=== PATIENT | male | born 1975 | race Caucasian/White ===

== ENCOUNTER 2016-08-10 11:12 | Outpatient (RCR) | payer SELFPAY | END 2016-09-05 | LOC: CR 11:12 | PROVIDERS: Family Provider Family Medicine; Referring Provider Internal Medicine Cardiovascular Disease; Visit Provider Family Medicine | DX: Z98.61 Coronary angioplasty status (principal) ==

== ENCOUNTER → 2019-07-08 00:01 | Outpatient (RCR) | payer MEDICARE, OTHER, SELFPAY | LOC: WOUND 09:39 | PROVIDERS: Family Provider Internal Medicine; Visit Provider Thoracic Surgery (Cardiothoracic Vascular Surgery) | DX: E11.621 Type 2 diabetes mellitus with foot ulcer (principal); L97.422 Non-pressure chronic ulcer of left heel and midfoot with fat layer exposed; I96 Gangrene, not elsewhere classified | CPT/HCPCS: 11042; G0463; 99202; 99212 ==

== ENCOUNTER 2019-08-05 09:00 | Outpatient (RCR) | payer MEDICARE, OTHER, SELFPAY | END 2019-08-08 23:59 | disposition home or self-care (01) | LOC: WOUND 09:00 | PROVIDERS: Family Provider Internal Medicine; PCP Internal Medicine; Visit Provider Thoracic Surgery (Cardiothoracic Vascular Surgery) | DX: E11.621 Type 2 diabetes mellitus with foot ulcer (principal); L97.422 Non-pressure chronic ulcer of left heel and midfoot with fat layer exposed; I96 Gangrene, not elsewhere classified | CPT/HCPCS: 11042; 15275; Q4196 ==

== ENCOUNTER 2019-08-12 10:00 | Outpatient (CLI) | payer MEDICARE, OTHER, SELFPAY ==
--- NOTE | 2019-08-12 10:15 | XR_ITS ---
WS: [id number] LEFT FOOT: 3 VIEW(S) TECHNIQUE: PA, oblique and lateral. HISTORY: PAIN, REDNESS, NONHEALING ULCER COMPARISON: 09/05/2010 Severe peripheral arterial calcifications and osteopenia. Chronic destruction and atrophy of the fift h toe. Ulcer was noted adjacent to the fifth toe on prior imaging studies. No current ulcer. No defin ite ulceration is noted over the calcaneus on today's study. No erosions or osteomyelitis. Normal tarsal/metatarsal alignment. XR/XR foot LT min 3V* 10106 IMPRESSION: 1. No ulceration or osteomyelitis noted involving the retrocalcaneal soft tiss ues or calcaneus. 2. Chronic deformity may be from prior osteomyelitis involving the fifth toe. 3. Severe peripheral arterial calcifications and osteopenia.
== END 2019-08-12 10:01 | disposition home or self-care (01) ==
LOC: RADWPI 10:08
PROVIDERS: Family Provider Internal Medicine; PCP Internal Medicine; Visit Provider Thoracic Surgery (Cardiothoracic Vascular Surgery)
DX: M85.872 Other specified disorders of bone density and structure, left ankle and foot (principal); L53.9 Erythematous condition, unspecified
CPT/HCPCS: 73630

== ENCOUNTER 2019-09-02 09:17 | Outpatient (RCR) | payer MEDICARE, OTHER, SELFPAY | END 2019-09-06 23:59 | disposition home or self-care (01) | LOC: WOUND 09:17 | PROVIDERS: Family Provider Internal Medicine; PCP Internal Medicine; Visit Provider Thoracic Surgery (Cardiothoracic Vascular Surgery) | DX: E11.621 Type 2 diabetes mellitus with foot ulcer (principal); L97.422 Non-pressure chronic ulcer of left heel and midfoot with fat layer exposed; M85.872 Other specified disorders of bone density and structure, left ankle and foot; L53.9 Erythematous condition, unspecified | CPT/HCPCS: 11042; 73630 ==

== ENCOUNTER 2019-10-07 10:30 | Outpatient (RCR) | payer MEDICARE, OTHER, SELFPAY | END 2019-10-07 23:59 | disposition home or self-care (01) | LOC: WOUND 10:30 | PROVIDERS: Family Provider Internal Medicine; PCP Internal Medicine; Visit Provider Thoracic Surgery (Cardiothoracic Vascular Surgery) | DX: E11.621 Type 2 diabetes mellitus with foot ulcer (principal); L97.422 Non-pressure chronic ulcer of left heel and midfoot with fat layer exposed | CPT/HCPCS: 11042; 15275; L4397; Q4110 ==

== ENCOUNTER 2019-11-04 09:35 | Outpatient (RCR) | payer MEDICARE, OTHER, SELFPAY | END 2019-11-06 23:59 | disposition home or self-care (01) | LOC: WOUND 09:35 | PROVIDERS: Family Provider Internal Medicine; PCP Internal Medicine; Visit Provider Thoracic Surgery (Cardiothoracic Vascular Surgery) | DX: E11.621 Type 2 diabetes mellitus with foot ulcer (principal); L97.422 Non-pressure chronic ulcer of left heel and midfoot with fat layer exposed | CPT/HCPCS: 11042 ==

== ENCOUNTER 2019-11-11 10:03 | Outpatient (CLI) | payer MEDICARE, OTHER, SELFPAY | END 2019-11-11 10:04 | disposition home or self-care (01) | LOC: WOUND 10:04 | PROVIDERS: Family Provider Internal Medicine; PCP Internal Medicine; Visit Provider Thoracic Surgery (Cardiothoracic Vascular Surgery) | DX: E11.621 Type 2 diabetes mellitus with foot ulcer (principal); L97.422 Non-pressure chronic ulcer of left heel and midfoot with fat layer exposed; L97.522 Non-pressure chronic ulcer of other part of left foot with fat layer exposed | CPT/HCPCS: 11042 ==

== ENCOUNTER 2019-11-18 08:55 | Outpatient (CLI) | payer MEDICARE, OTHER, SELFPAY | END 2019-11-18 08:56 | disposition home or self-care (01) | LOC: WOUND 08:56 | PROVIDERS: Family Provider Internal Medicine; PCP Internal Medicine; Visit Provider Thoracic Surgery (Cardiothoracic Vascular Surgery) | DX: E11.621 Type 2 diabetes mellitus with foot ulcer (principal); L97.422 Non-pressure chronic ulcer of left heel and midfoot with fat layer exposed | CPT/HCPCS: 11042 ==

== ENCOUNTER 2019-11-25 09:41 | Outpatient (CLI) | payer MEDICARE, OTHER, SELFPAY | END 2019-11-25 09:42 | disposition home or self-care (01) | LOC: WOUND 09:42 | PROVIDERS: Family Provider Internal Medicine; PCP Internal Medicine; Visit Provider Thoracic Surgery (Cardiothoracic Vascular Surgery) | DX: E11.621 Type 2 diabetes mellitus with foot ulcer (principal); L97.422 Non-pressure chronic ulcer of left heel and midfoot with fat layer exposed | CPT/HCPCS: 11042 ==

== ENCOUNTER 2019-12-02 09:19 | Outpatient (CLI) | payer MEDICARE, OTHER, SELFPAY | END 2019-12-02 09:20 | disposition home or self-care (01) | LOC: WOUND 09:21 | PROVIDERS: Family Provider Internal Medicine; PCP Internal Medicine; Visit Provider Thoracic Surgery (Cardiothoracic Vascular Surgery) | DX: E11.621 Type 2 diabetes mellitus with foot ulcer (principal); L97.422 Non-pressure chronic ulcer of left heel and midfoot with fat layer exposed | CPT/HCPCS: 11042 ==

== ENCOUNTER 2019-12-09 09:32 | Outpatient (CLI) | payer MEDICARE, OTHER, SELFPAY | END 2019-12-09 09:33 | disposition home or self-care (01) | LOC: WOUND 09:34 | PROVIDERS: Family Provider Internal Medicine; PCP Internal Medicine; Visit Provider Thoracic Surgery (Cardiothoracic Vascular Surgery) | DX: E11.621 Type 2 diabetes mellitus with foot ulcer (principal); L97.422 Non-pressure chronic ulcer of left heel and midfoot with fat layer exposed | CPT/HCPCS: 11042 ==

== ENCOUNTER 2019-12-16 09:52 | Outpatient (CLI) | payer MEDICARE, OTHER, SELFPAY | END 2019-12-16 09:53 | disposition home or self-care (01) | LOC: WOUND 09:56 | PROVIDERS: Family Provider Internal Medicine; PCP Internal Medicine; Visit Provider Thoracic Surgery (Cardiothoracic Vascular Surgery) | DX: E11.621 Type 2 diabetes mellitus with foot ulcer (principal); L97.422 Non-pressure chronic ulcer of left heel and midfoot with fat layer exposed | CPT/HCPCS: 11042 ==

== ENCOUNTER 2019-12-23 09:33 | Outpatient (CLI) | payer MEDICARE, OTHER, SELFPAY | END 2019-12-23 09:34 | disposition home or self-care (01) | LOC: WOUND 09:34 | PROVIDERS: Family Provider Internal Medicine; PCP Internal Medicine; Visit Provider Thoracic Surgery (Cardiothoracic Vascular Surgery) | DX: E11.621 Type 2 diabetes mellitus with foot ulcer (principal); L97.422 Non-pressure chronic ulcer of left heel and midfoot with fat layer exposed | CPT/HCPCS: G0463 ==

== ENCOUNTER 2020-01-06 09:27 | Outpatient (CLI) | payer MEDICARE, OTHER, SELFPAY | END 2020-01-06 09:28 | disposition home or self-care (01) | LOC: WOUND 09:28 | PROVIDERS: Family Provider Internal Medicine; PCP Internal Medicine; Visit Provider Thoracic Surgery (Cardiothoracic Vascular Surgery) | DX: Z09 Encounter for follow-up examination after completed treatment for conditions other than malignant neoplasm (principal) | CPT/HCPCS: 99211; 99212 ==

== ENCOUNTER → 2022-01-25 14:26 | Outpatient (BNVA) | payer MEDICARE, OTHER, SELFPAY | PROVIDERS: Family Provider Internal Medicine; PCP Internal Medicine; Visit Provider Thoracic Surgery (Cardiothoracic Vascular Surgery) | DX: I96 Gangrene, not elsewhere classified (principal); E11.621 Type 2 diabetes mellitus with foot ulcer; L97.422 Non-pressure chronic ulcer of left heel and midfoot with fat layer exposed | CPT/HCPCS: 11042; 99213 ==

== ENCOUNTER → 2022-01-30 09:45 | Outpatient (BNVA) | payer MEDICARE, OTHER, SELFPAY | PROVIDERS: Family Provider Internal Medicine; PCP Internal Medicine; Visit Provider Thoracic Surgery (Cardiothoracic Vascular Surgery) | DX: E11.621 Type 2 diabetes mellitus with foot ulcer (principal); L89.622 Pressure ulcer of left heel, stage 2; I96 Gangrene, not elsewhere classified | CPT/HCPCS: 11042 ==

== ENCOUNTER → 2022-02-06 09:47 | Outpatient (BNVA) | payer MEDICARE, OTHER, SELFPAY | PROVIDERS: Family Provider Internal Medicine; PCP Internal Medicine; Visit Provider Nurse Practitioner Family | DX: E11.621 Type 2 diabetes mellitus with foot ulcer (principal); L97.422 Non-pressure chronic ulcer of left heel and midfoot with fat layer exposed; I96 Gangrene, not elsewhere classified | CPT/HCPCS: 11042 ==

== ENCOUNTER → 2022-02-13 09:05 | Outpatient (BNVA) | payer MEDICARE, OTHER, SELFPAY | PROVIDERS: Family Provider Internal Medicine; PCP Internal Medicine; Visit Provider Thoracic Surgery (Cardiothoracic Vascular Surgery) | DX: E11.621 Type 2 diabetes mellitus with foot ulcer (principal); L97.422 Non-pressure chronic ulcer of left heel and midfoot with fat layer exposed; I96 Gangrene, not elsewhere classified | CPT/HCPCS: 11042 ==

== ENCOUNTER → 2022-02-14 13:00 | Outpatient (BNVA) | payer MEDICARE, OTHER, SELFPAY | PROVIDERS: Family Provider Internal Medicine; PCP Internal Medicine; Visit Provider Internal Medicine | DX: R07.9 Chest pain, unspecified (principal); I73.9 Peripheral vascular disease, unspecified; I25.2 Old myocardial infarction; I95.0 Idiopathic hypotension; F17.210 Nicotine dependence, cigarettes, uncomplicated | CPT/HCPCS: 99214 ==

== ENCOUNTER → 2022-02-20 09:04 | Outpatient (BNVA) | payer MEDICARE, OTHER, SELFPAY | PROVIDERS: Family Provider Internal Medicine; PCP Internal Medicine; Visit Provider Thoracic Surgery (Cardiothoracic Vascular Surgery) | DX: E11.621 Type 2 diabetes mellitus with foot ulcer (principal); L97.522 Non-pressure chronic ulcer of other part of left foot with fat layer exposed; I96 Gangrene, not elsewhere classified; L97.422 Non-pressure chronic ulcer of left heel and midfoot with fat layer exposed | CPT/HCPCS: 11042 ==

== ENCOUNTER → 2022-02-27 08:44 | Outpatient (BNVA) | payer MEDICARE, OTHER, SELFPAY | PROVIDERS: Family Provider Internal Medicine; PCP Internal Medicine; Visit Provider Thoracic Surgery (Cardiothoracic Vascular Surgery) | DX: E11.621 Type 2 diabetes mellitus with foot ulcer (principal); L97.422 Non-pressure chronic ulcer of left heel and midfoot with fat layer exposed; L97.421 Non-pressure chronic ulcer of left heel and midfoot limited to breakdown of skin | CPT/HCPCS: 11042 ==

== ENCOUNTER 2022-03-03 13:57 | Emergency (ER) | payer MEDICARE, OTHER, SELFPAY ==
[2022-03-03 14:50] VITALS: BP 104/68; PULSE 81; RESP 16; TEMP 36.8; O2SAT 94; BMI 27.0
[2022-03-03 15:58] LABS: Basophils # 0.1 10^3/uL (0.0-0.1); Basophils % 1.3 %; Eosinophils # 0.4 10^3/uL (0.0-0.8); Hematocrit 45.6 % (42.0-52.0); Hemoglobin 14.7 g/dL (11.7-16.6); Lymphocytes # 1.2 10^3/uL (0.8-4.8); Lymphocytes % 17.6 %; Mean Corpuscular HGB Conc 32.2 g/dL (30.0-36.0); Mean Corpuscular Hemoglobin 34.8 pg (28.0-34.0); Mean Corpuscular Volume 108.1 fl (80-94); Mean Platelet Volume 8.9 fL (7.4-10.4); Monocytes # 0.5 10^3/uL (0.2-0.9); Monocytes % 6.9 %; Neutrophils % 67.8 %; Nucleated Red Blood Cells % 0 %; Platelet Count 160 10^3/cmm (130-400); Red Blood Count 4.22 10^6/uL (4.1-5.3); Red Cell Distribution Width 14.7 % (12.1-15.1); White Blood Count 6.8 10^3/uL (4.0-10.0)
--- NOTE | 2022-03-03 16:11 | ED_ITS ---
HPI - Extremity Problem General: Chief complaint: Extremity Injury, Lower Stated complaint: Left lower leg pain, possible clot Time Seen by Provider: 03/03/22 16:09 [facility] PFSH: Medical History History of non-ST elevation myocardial infarction (NSTEMI) Hypotension Peripheral Vascular Disease Family History Other Cancer Diabetes Heart disease Hypertension Stroke Social History Smoking and tobacco status: current every day smoker cigarettes Packs smoked per day: 0.5 Course Vital Signs: Vital signs: Vital Signs Temperature 98.2 F 03/03/22 14:50 Pulse Rate 81 03/03/22 14:50 Respiratory Rate 16 03/03/22 14:50 Blood Pressure 104/68 03/03/22 14:50 Pulse Oximetry 94 03/03/22 14:50 Oxygen Delivery Me thod 03/03/22 14:50 MDM - Extremity (Nontraumatic) Lab Data : 03/03/22 15:50 03/03/22 15:50 Laboratory Results WBC 6.8 10^3/uL (4.0-10.0) 03/03/22 15:50 RBC 4.22 10^6/uL (4.1-5.3) 03/03/22 15:50 Hgb 14.7 g/dL (11.7-16.6) 03/03/22 15:50 Hct 45.6 % (42.0-52.0) 03/03/22 15:50 MCV 108.1 fl (80-94) H 03/03/22 15:50 MCH 34.8 pg (28.0-34.0) H 03/03/22 15:50 MCHC 32.2 g/dL (30.0-36.0) 03/03/22 15:50 RDW 14.7 % (12.1-15.1) 03/03/22 15:50 Plt Count 160 10^3/cmm (130-400) 03/03/22 15:50 MPV 8.9 fL (7.4-10.4) 03/03/22 15:50 Neut % (Auto) 67.8 % 03/03/22 15:50 Lymph % (Auto) 17.6 % 03/03/22 15:50 [place] % (Auto) 6.9 % 03/03/22 15:50 Eos % (Auto) 6.0 % 03/03/22 15:50 Baso % (Auto) 1.3 % 03/03/22 15:50 Neut # (Auto) 4.60 10^3/uL (1.8-7.7) 03/03/22 15:50 Lymph # (Auto) 1.2 10^3/uL (0.8-4.8) 03/03/22 15:50 [place] # (Auto) 0.5 10^3/uL (0.2-0.9) 03/03/22 15:50 Eos # (Auto) 0.4 10^3/uL (0.0-0.8) 03/03/22 15:50 Baso # (Auto) 0.1 10^3/uL (0.0-0.1) 03/03/22 15:50 Nucleated RBC % (auto) 0 % 03/03/22 15:50 Nucleated RBCs # 0.0 /100WBC 03/03/22 15:50 Discharge Plan Discharge Condition: Stable Prescriptions: No Action doxercalciferol 2 mcg/mL solution IV nitroglycerin [Nitrostat] 0.4 mg tablet, sublingual 0.4 mg SUBLINGUAL Q5M PRN (Reason: chest pain) Qty: 25 1RF Rx Instructions: do not exceed 3 doses per episode aspirin [Adult Low Dose Aspirin] 81 mg tablet,delayed release (DR/EC) 81 mg PO DAILY vitamin E (dl, acetate) 400 unit capsule 400 unit PO DAILY midodrine 10 mg tablet 10 mg PO TID Qty: 270 3RF Rx Instructions: do not give last dose of day after 6PM or within 4 hrs of bedtime Velphoro 500 mg tablet,chewable 1,000 mg PO TID clopidogrel 75 mg tablet 75 mg PO DAILY Qty: 90 3RF sodium chloride 0.9 % solution 1 irrig irrigation DAILY MDD once daily Qty: 500 3RF Referrals: Julius Aguila DO [Primary Care Provider] - Coding Level of Care Code ED Kiln Door Repairer for Chg Fwdeyvi
[2022-03-03 16:47] LABS: Anion Gap 17.3 (5-19); Blood Urea Nitrogen 13 mg/dL (6-20); Calcium 10.1 mg/dL (8.5-10.5); Carbon Dioxide 28 mmol/L (22-29); Chloride 95 mmol/L (98-107); Glomerular Filtration Rate 21.1 mL/min (90-130); Glucose 101 mg/dL (65-115); Osmolality Calculated 282 mOsm/kg (285-295); Potassium 4.3 mmol/L (3.5-5.1); Sodium 136 mmol/L (136-145)
[2022-03-03 16:50] LABS: Creatinine Clr Calc Pharmacy 30.2382
--- NOTE | 2022-03-03 16:51 | W.ED.EXTPRO ---
HPI - Extremity Problem General: Chief complaint: Extremity Injury, Lower Stated complaint: Left lower leg pain, possible clot Time Seen by Provider: 03/03/22 16:09 Source: patient and family Mode of arrival: ambulatory History of Present Illness: Amy patient is here because of concerns about discoloration and necrosis of the left foot particularly the base of the toe and heel. The patient has a history of peripheral vascular disease and is had a right leg amputation for the same condition. He is still using tobacco. He sees Dr. Hernández at the wound care clinic who has been treating him on a regular basis. Patient also has chronic kidney disease and gets 3 times a week hemodialysis. Family has brought him here today to the emergency department because she thinks there is some increase progression of duskiness to the areas. He has had no fever, drainage etc. PFS ED PFSH: Medical History History of non-ST elevation myocardial infarction (NSTEMI) Hypotension Peripheral Vascular Disease Family History Other Cancer Diabetes Heart disease Hypertension Stroke Social History Smoking and tobacco status: current every day smoker cigarettes Packs smoked per day: 0.5 Physical Exam Narrative: EXAM NARRATIVE: The patient is alert makes good eye contact speech is goal-directed. Const: COMMON NORMALS: no acute distress and patient oriented x3 GENERAL APPEARANCE: cooperative and comfortable HENMT: COMMON NORMALS: normocephalic and moist oral mucous membranes HEAD & SCALP: normocephalic FACE & SINUS: normal facial exam Eye: COMMON NORMALS: Equal, round and reactive pupils present, EOMs intact bilaterally and conjunctivae normal CONJUNCTIVA: Yes conjunctivae normal PUPIL: Yes Equal, round and reactive pupils present Neck/C-Spine: COMMON NORMALS: full ROM Chest: COMMONS NORMALS: normal inspection of the chest Resp: COMMON NORMALS: normal respiratory effort, No retractions and No use of accessory muscles Cardio: COMMON NORMALS: regular rate, regular rhythm and No murmurs present (Cardio) RATE: regular rate RHYTHM: regular rhythm GI: COMMON NORMALS: Normal to inspection, nondistended, normoactive bowel sounds present and Soft to palpation PALPATION: Yes Soft to palpation Extremity: NARRATIVE EXTREMITY EXAM: He has BKA on the right with prosthesis. His left lower extremity is remarkable for duskiness and discoloration to the extremity from the proximal one third of the lower leg distal. He has smooth hairless skin of the lower extremity as well. There is evidence of dry flaky dermis as well. The examination of the foot reveals an area on ulcer on his heel of the left foot measuring approximately 3-1/2 to 4 cm. There is no drainage or erythema. There is also a dark ulcerated area to the base of the fourth toe. There is no drainage or erythema. Neuro: COMMON NORMALS: patient oriented x3, moves all extremities, no focal motor deficits and no sensory deficits noted Course Consultations: Consultation #1: I discussed case with Dr. Hernández who is the wound care physician. Has made arrangements for this patient to see Dr. Leal for angiography and possible peripheral vascular disease treatment. This was at the request of the mother over him going back to [place] and seeing his previous vascular surgeons at [facility]. Time: 17:43 Vital Signs: Vital signs: Vital Signs Temperature 98.2 F 03/03/22 14:50 Pulse Rate 81 03/03/22 14:50 Respiratory Rate 18 03/03/22 18:01 Blood Pressure 113/75 03/03/22 18:01 Pulse Oximetry 94 03/03/22 14:50 Oxygen Delivery Me thod 03/03/22 14:50 MDM - Extremity (Nontraumatic) Medical Decision Making This patient with a history of severe peripheral vascular disease as well as chronic kidney disease who continues to use tobacco came to the emergency department with his mother because she was concerned about possible need for intervention of his left leg and foot. She thinks there is some small areas that looked a little more purplish or darker than usual. His care is usually provided by the wound care clinic as well as nephrology for 3 times a week hemodialysis. There is also been prior arrangements made for peripheral angiography and potential stenting as indicated coming up in the next few weeks. His evaluation today revealed an KIRA that was not indicative of severe ischemia at this time. It was 0.8. This combined with the improved appearance of his leg when it was not dependent as well as additional discussion with the patient and his mother and in consort with the wound care physician resulted in a plan to continue the previously outlined plan. He has no signs of cellulitis, wet gangrene etc. at this time. We further admonished the patient not to use tobacco and also to not keep his leg dependent but keep it elevated to help reduce his symptoms. They voiced understanding of the discussion. He is stable at this time to be discharged with follow-up as previously planned. Medical Records I reviewed the patient's medical records. Lab Data I reviewed the patient's lab results. : 03/03/22 15:50 03/03/22 15:50 Laboratory Results WBC 6.8 10^3/uL (4.0-10.0) 03/03/22 15:50 RBC 4.22 10^6/uL (4.1-5.3) 03/03/22 15:50 Hgb 14.7 g/dL (11.7-16.6) 03/03/22 15:50 Hct 45.6 % (42.0-52.0) 03/03/22 15:50 MCV 108.1 fl (80-94) H 03/03/22 15:50 MCH 34.8 pg (28.0-34.0) H 03/03/22 15:50 MCHC 32.2 g/dL (30.0-36.0) 03/03/22 15:50 RDW 14.7 % (12.1-15.1) 03/03/22 15:50 Plt Count 160 10^3/cmm (130-400) 03/03/22 15:50 MPV 8.9 fL (7.4-10.4) 03/03/22 15:50 Neut % (Auto) 67.8 % 03/03/22 15:50 Lymph % (Auto) 17.6 % 03/03/22 15:50 [place] % (Auto) 6.9 % 03/03/22 15:50 Eos % (Auto) 6.0 % 03/03/22 15:50 Baso % (Auto) 1.3 % 03/03/22 15:50 Neut # (Auto) 4.60 10^3/uL (1.8-7.7) 03/03/22 15:50 Lymph # (Auto) 1.2 10^3/uL (0.8-4.8) 03/03/22 15:50 [place] # (Auto) 0.5 10^3/uL (0.2-0.9) 03/03/22 15:50 Eos # (Auto) 0.4 10^3/uL (0.0-0.8) 03/03/22 15:50 Baso # (Auto) 0.1 10^3/uL (0.0-0.1) 03/03/22 15:50 Nucleated RBC % (auto) 0 % 03/03/22 15:50 Nucleated RBCs # 0.0 /100WBC 03/03/22 15:50 Sodium 136 mmol/L (136-145) 03/03/22 15:50 Potassium 4.3 mmol/L (3.5-5.1) 03/03/22 15:50 Chloride 95 mmol/L (98-107) L 03/03/22 15:50 Carbon Dioxide 28 mmol/L (22-29) 03/03/22 15:50 Anion Gap 17.3 (5-19) 03/03/22 15:50 BUN 13 mg/dL (6-20) 03/03/22 15:50 Creatinine 3.2 mg/dL (0.7-1.2) H 03/03/22 15:50 GFR Calculation 21.1 mL/min (90-130) L 03/03/22 15:50 Glucose 101 mg/dL (65-115) 03/03/22 15:50 Calculated Osmolality 282 mOsm/kg (285-295) L 03/03/22 15:50 Calcium 10.1 mg/dL (8.5-10.5) 03/03/22 15:50 Discharge Plan Discharge Patient Disposition: Home Clinical Impression: Peripheral Vascular Disease Condition: Stable Prescriptions: No Action doxercalciferol 2 mcg/mL solution IV nitroglycerin [Nitrostat] 0.4 mg tablet, sublingual 0.4 mg SUBLINGUAL Q5M PRN (Reason: chest pain) Qty: 25 1RF Rx Instructions: do not exceed 3 doses per episode aspirin [Adult Low Dose Aspirin] 81 mg tablet,delayed release (DR/EC) 81 mg PO DAILY vitamin E (dl, acetate) 400 unit capsule 400 unit PO DAILY midodrine 10 mg tablet 10 mg PO TID Qty: 270 3RF Rx Instructions: do not give last dose of day after 6PM or within 4 hrs of bedtime Velphoro 500 mg tablet,chewable 1,000 mg PO TID clopidogrel 75 mg tablet 75 mg PO DAILY Qty: 90 3RF sodium chloride 0.9 % solution 1 irrig irrigation DAILY MDD once daily Qty: 500 3RF Discharge Orders: Discharge ED (Routine); Ordered 03/03/22 Ordered By: Andrey Oconnell Referrals: Julius Aguila DO [Primary Care Provider] - Discharge Diet: Usual diet Discharge Activity: Increase activity as tolerated Patient Instructions: Opioid Safety Activity Restrictions/Additional Instructions: Do not smoke cigarettes-none. Continue all your usual medications and home wound care. Follow-up in wound care clinic on Sunday as scheduled. If you develop fever, increasing pain, increasing redness or any concerns return to this or the nearest emergency department. Coding Level of Care Code ED Scalemaker for Meka Fischer Exam Comprehensive
[2022-03-03 18:01] VITALS: BP 113/75; RESP 18
--- NOTE | 2022-03-03 18:01 | PC.NURSE ---
KIRA of 0.[address] Oconnell, explained to patient by this RN.
== END 2022-03-03 19:02 | disposition home or self-care (01) ==
PROVIDERS: Physician Assistant; Emergency Provider Emergency Medicine; PCP Internal Medicine
DX: I73.9 Peripheral vascular disease, unspecified (principal); Z79.82 Long term (current) use of aspirin; Z79.02 Long term (current) use of antithrombotics/antiplatelets; I25.2 Old myocardial infarction; F17.210 Nicotine dependence, cigarettes, uncomplicated
CPT/HCPCS: 36415; 80048; 85025; 99283

== ENCOUNTER → 2022-03-06 08:56 | Outpatient (BNVA) | payer MEDICARE, OTHER, SELFPAY | PROVIDERS: PCP Internal Medicine; Visit Provider Thoracic Surgery (Cardiothoracic Vascular Surgery) | DX: E11.621 Type 2 diabetes mellitus with foot ulcer (principal); L97.422 Non-pressure chronic ulcer of left heel and midfoot with fat layer exposed; I96 Gangrene, not elsewhere classified; L97.521 Non-pressure chronic ulcer of other part of left foot limited to breakdown of skin | CPT/HCPCS: 11042; 97597; A6197 ==

== ENCOUNTER → 2022-03-20 09:34 | Outpatient (BNVA) | payer MEDICARE, OTHER, SELFPAY | PROVIDERS: PCP Internal Medicine; Visit Provider Nurse Practitioner Family | DX: I96 Gangrene, not elsewhere classified (principal); E11.621 Type 2 diabetes mellitus with foot ulcer; L97.422 Non-pressure chronic ulcer of left heel and midfoot with fat layer exposed; L97.521 Non-pressure chronic ulcer of other part of left foot limited to breakdown of skin | CPT/HCPCS: 87070; 87077; 87186; 99213 ==

== ENCOUNTER → 2022-03-24 09:35 | Outpatient (BNVA) | payer MEDICARE, OTHER, SELFPAY | PROVIDERS: Family Provider Internal Medicine; PCP Internal Medicine; Visit Provider Internal Medicine | DX: R07.9 Chest pain, unspecified (principal); I73.9 Peripheral vascular disease, unspecified; I25.2 Old myocardial infarction; I95.0 Idiopathic hypotension; R58 Hemorrhage, not elsewhere classified | CPT/HCPCS: 36415; 80048; 85025; 85610 ==

== ENCOUNTER → 2022-03-27 09:02 | Outpatient (BNVA) | payer MEDICARE, OTHER, SELFPAY | PROVIDERS: Family Provider Internal Medicine; PCP Internal Medicine; Visit Provider Thoracic Surgery (Cardiothoracic Vascular Surgery) | DX: I96 Gangrene, not elsewhere classified (principal); E11.621 Type 2 diabetes mellitus with foot ulcer; L97.422 Non-pressure chronic ulcer of left heel and midfoot with fat layer exposed; L97.421 Non-pressure chronic ulcer of left heel and midfoot limited to breakdown of skin | CPT/HCPCS: 11042 ==

== ENCOUNTER 2022-03-28 05:50 | Outpatient (CLI) | payer MEDICARE, OTHER, SELFPAY ==
[2022-03-28] VITALS (17 sets, daily range): BP systolic 101–115; BP diastolic 62–79; PULSE 68–79; RESP 16–33; TEMP 36.7–37.1; O2SAT 98–100; BMI 30.3
--- NOTE | 2022-03-28 06:02 | XACV_ITS ---
Ht: 168 cm Wt: 85 kg BSA: 2.02 m2 Any Known Allergies: Other Gender: Male : 1975 Exam Type: Invasive Peripheral Vascular Procedure(s): Procedure Description: Peripheral Cath Diagnostic Procedure Procedure Description: Abdominal aortic angiography Procedure Description: Lower Extremity Graft Angiography Exam Priority: Routine Abdominal Diagnostic Findings Distal aorta: Patent. Lower Extremity Diagnostic Findings INDICATION: 46-year-old man with past medical history of CAD, PAD has been referred from wound clinic given nonhealing wound on the left calcaneus and progressive necrotic changes on left fourth toe. He has a BKA on the right lower extremity. Pulses are not palpable. Left common iliac artery: Patent Left external iliac artery: Patent Left internal iliac artery: Patent Left common femoral artery: Patent Left profunda artery: Patent Left SFA: Has diffuse moderate disease. Left popliteal artery: Heavily calcified, totally occluded proximal popliteal artery. Anterior tibial artery: Patent TP segment: Patent Peroneal artery: has significant proximal stenosis. Posterior tibial artery: Occluded . Lower Extremity Interventional Findings Procedure detail: Access was obtained in right common femoral artery. Using UF catheter every obtained abdominal angiogram. This was followed by placement of a long sheath into left external iliac artery. Runoff of left lower extremity showed totally occluded, heavily calcified popliteal artery. We attempted to cross the stenosis briefly with a Glidewire with seeker support catheter. This was followed by attempting with run-through wire. This was followed with attempting to cross with Fielder XT. However none of the wires were able to cross. At this stage we decided to stop and get vascular surgery opinion.. Conclusions Totally occluded, heavily calcified left popliteal artery. Status post unsuccessful revascularization attempt. Recommendations We will obtain opinion from Dr. Hernández regarding possible bypass surgery. Access Site Site: Right Femoral artery Sheath Size: 6 Fr Hemost... Method: Suture Hemost... Success: Successful Procedure Details Findings Procedure Consent Obtained. Admit Source: Out Patient. Pre-Procedure Time Out. Identified patient by full name and date of as verbalized by the patient/guarantor. Does the consent match the physician's order: Yes. Accurate & Complete Informed Consent: Yes. Inpatient/Outpatient History & Physical on Chart: Yes. If H&P is completed, is and addenduem needed: No; If yes, is the addendum complete: N/A. Visualize and Verify Site with Patient/Guarantor: N/A. Relevant Radiology Images available: N/A. The risks, benefits, and alternatives of sedation and/or procedure were discussed by physician. The patient agrees to continue. Procedure started. Correct patient, site and procedure confirmed by cath team. Current diagnosis: Critical Limb Ischemia. PERRLA. Strong, equal hand ophthalmologist retina specialist bilaterally. Lungs clear x 5 lobes. IV Site on Arrival: 18 gauge in the right anticubital. IV Fluids: 0.9% NaCl at KVO. 0 mL infused prior to manufacturing laborer. Patient has a Right below the Knee amputation. Left DP and PT pulses not acessible d/t lower extremity dressings. Oxygen started at 3liters/min via nasal canula. bilateral groins was prepped with chloroprep then draped in the usual sterile fashion. Physician notified. Baseline sample Acquired. HR: 74 BPM. Family updated prior to the start of the procedure. Equipment: 5F - Femoral. Equipment: Peripheral. Equipment: 6F - Femoral. Physician arrived. Physician scrubbed in. Heparinized Saline (2 units/mL), 1000 mL bag. Kit, Micropuncture. Cardiac Cath Pack. ACIST Manifold Kit Model BT 2000. Immediate Pre-Procedure Time Out. Correct Patient: Yes; Correct Procedure: Yes; Correct Site: Yes; Correct Patient Position: Yes; Correct Supplies: Yes; Dried Flammable Prep: Yes; Blood Products Available: N/A;. Lidocaine 1% infiltrated to the right groin. Arterial access obtained with micropuncture set. A 5FrFr UF catheter in over wire. Abdominal aortogram performed in AP @ 10 mL/sec for a total of 30 mL. Glidewire inserted and advanced down the left SFA. Sheath upsized to a 6 Fr. Glidewire removed. Left common femoral selected and arteriogram with runoff performed @ 10 mL/sec for a total of 30 mL. Seeker inserted and advanced to the left SFA. Seeker catheter inserted over the wire. Glidewire removed. Hand injection of the left Popliteal performed using digital subtraction. Hand injection of the left Trifuctation vessels performed using digital subtraction. [place] to KVO. 300 cm Runthrough inserted and advanced to the left Tibial peroneal trunk. Unable to cross lesion in the popliteal. Runthrough wire out. 190 cm Fielder XT wire inserted through the seeker. Unable to cross lesion in the popliteal. Fielder wire removed. 300 cm Runthrough inserted and advanced to the left Tibial peroneal trunk. Family updated by [facility] staff. Unable to cross lesion in the popliteal. Runthrough wire removed. Hand injection of the left Popliteal performed using digital subtraction. Physician review of films. Hand injection of the left pedal performed using digital subtraction. Seeker and glidewire removed. Physician review of films. Glidewire inserted. Sheath upsized to a 6 Fr. A Suture was successful obtaining hemostatsis at the Right Femoral artery insertion site. Sheath(s) sutured into position with 2-0 silk and sterile 4x4's and Op-site applied over the site. No oozing or signs and symptoms of hematoma noted. Arterial sheath flushed and connected to tranducer and pressure bag with heparinized saline. Post Procedure: Pulses reassessed and unchanged. PERRLA. Strong, equal hand ophthalmologist retina specialist bilaterally. No VTE prophylaxis required. Medication waste Heparin 4000 units Versed 1 mg Fentanyl 50 mcg. Total IV fluids: 90 mL. Fluoro: 14:00. Contrast type used: Visipaque 320 mgI/mL, 100 mL bottle. [id number]. Post-op diagnosis: Critical limb ischemia of the left lower extremity. Complications: None. Estimated blood loss: 5mL-10mL. Responsiveness - Normal response to verbal stimuli; alert and oriented, PERRLA. Airway - Unaffected, no intervention required; spontaneous ventilation. Circulation: W/N/L, pulses unchanged. Nausea/Vomiting: No. Procedure completed. Patient transferred by bed to [facility]. Vital chart was stopped. Procedure Medications Start: 7:42 AM Stop: 7:42 AM Medication: Versed 1 mg and Fentanyl 25 mcg Amount: 1 Route: I.V. Start: 7:43 AM Stop: 7:43 AM Medication: Fentanyl Amount: 25 mcg Route: I.V. Start: 7:48 AM Stop: 7:48 AM Medication: Versed Amount: 1 mg Route: I.V. Start: 7:53 AM Stop: 7:53 AM Medication: Versed Amount: 1 mg Route: I.V. I, the attending physician, have reviewed and verified all procedure medications. Yes, all medications given per verbal order History/Risk Factors Hypertension: No Dyslipidemia: No Peripheral Arterial Disease (PAD): No Myocardial Infarction (AK): Yes Obesity: No Renal Disease: Yes Tobacco Use: Current/Recent(w/in 1 year) Dialysis: Current Prior Interventions PCI: Yes CABG: No Valve Surgery: No Date of PCI: 03/28/2018 Report Signatures Finalized by Dex Johnson MD on 04/02/2022 09:03 PM
[2022-03-28] MEDS: diphenhydrAMINE 50 mg Capsule PO (06:48)
--- NOTE | 2022-03-28 07:04 | SUR.PREOP ---
PATIENT HAS A RIGHT BKA WITH PROSTHESIS IN PLACE WELL A LEFT BELOW THE KNEE SUPPORTIVE BRACE FROM THE WOUND CLINIC.
--- NOTE | 2022-03-28 07:32 | W.PM.OPSFHP ---
Same Day Surgery H&P Indication for Procedure/HPI DATE OF PROCEDURE: March 28, 2022 CHIEF COMPLAINT/INDICATIONFOR SURGICAL PROCEDURE: Critical limb ischemia/ gangrene of 4th toe/ non healing wound on left foot PREOP DIAGNOSIS: Critical limb ischemia/ gangrene of 4th toe/ non healing wound on left foot PLANNED PROCEDURE: Operation Date: 03/28/22 07:00 Proposed Procedures p Peripheral Diagnostic Angiogram 54812,I73.9(Not Applicable) - Dex Johnson M.D Possible percutaneous intervention 46-year-old man with past medical history of CAD, PAD has been referred from wound clinic given nonhealing wound on the left calcaneus and progressive necrotic changes on left fourth toe. He has a BKA on the right lower extremity. Pulses are not palpable. Medications/Allergies* Home Medications Medication Instructions Recorded Confirmed Type aspirin 81 mg tablet,delayed 81 mg PO DAILY 12/03/19 03/27/22 History release (Adult Low Dose Aspirin) vitamin E (dl, acetate) 180 mg 400 unit PO DAILY 12/03/19 02/14/22 History (400 unit) capsule doxercalciferol 2 mcg/mL mcg IV 02/15/21 02/14/22 History intravenous solution sucroferric oxyhydroxide 500 mg 1,000 mg PO TID 02/14/22 03/27/22 History chewable tablet (Velphoro) Allergies/Adverse Reactions Allergy/AdvReac Type Severity Reaction Status Date / Time azithromycin [From Zithromax] Allergy Unknown Unknown Verified 02/14/22 13:29 ceftriaxone Allergy Unknown Unknown Verified 02/14/22 13:29 codeine Allergy Unknown Unknown Verified 02/14/22 13:29 hydrocodone Allergy Unknown Unknown Verified 02/14/22 13:29 Penicillins Allergy Unknown Unknown Verified 02/14/22 13:29 Current Medications: Generic Name Dose Route Start Last Admin Trade Name Freq PRN Reason Stop Dose Admin Sodium Chloride 1,000 mls @ 50 mls/hr 03/28/22 06:00 03/28/22 06:47 Sodium Chloride 0.9% IV 03/29/22 01:59 Not Given .Q20H ONE Pertinent History/Comorbid Conditions* Medical History (Updated 03/03/22 @ 18:46 by Andrey Oconnell DO) History of non-ST elevation myocardial infarction (NSTEMI) Hypotension Peripheral Vascular Disease Family History (Updated 12/03/19 @ 13:01 by Divya Flores, CHARLA) Diabetes Heart disease Cancer Hypertension Stroke Social History Smoking and tobacco status: current every day smoker cigarettes Packs smoked per day: 0.5 Pertinent Exam Findings alert, oriented x 3, clear to auscultation bilaterally and regular rate & rhythm Has dressing applied to the left calcaneous. Has necrotic changes to the 4th left toe Recommendations Surgery/Procedure today Other Plans: Peripheral angiogram with possible intervention Coding Level of Care Code Acute Svp Group Director for Meka Fischer
--- NOTE | 2022-03-28 08:40 | PC.NURSE ---
pt came from clinical lab clerk post peripheral angiogram on left leg w/no intervention. right groin arterial sheath is intact w/pressure bag attached. no hematoma, bleeding or swelling on right groin. pt has a chronic BKA on right leg and chronic ulcers on left heel and gangrene on left 4th toe as well as chronic pad on left. pt reports of pain on both legs if he is on bedrest for a long time. pt has a left FA fistula. call light placed close to pt. activity restrictions discussed and instructed pt to notify nurse if there is any unusual pain, burning sensation and pressure on right groin or bleeding. pt verbalizes understanding.
--- NOTE | 2022-03-28 09:57 | PC.PHAR ---
pt states he takes care of his own medications-rx written 03/24/22 levofloxacin 500mg daily-rx filled 750mg on day one then 500mg every other day for 3 doses-pts mother states the pt has 2 more doses left at 250mg on non dialysis days-pt states due to get tonight-pts mother states the pt gets a green and orange tab to take after dialysis called [facility] [phone] they are closed today-
[2022-03-28 11:29] LABS: Glucose Point of Care 117 mg/dL (70-110)
--- NOTE | 2022-03-28 13:28 | PC.CHAP ---
Pastoral Care Encounter/Spiritual Assessment Type of Contact [] Declined molasses preparer visit [] Patient/Family/Request visit [] Outpatient visit [] Follow-up visit [] Physician referral [] Code/Alert [x] Routine visit [] Staff referral [] Actively dying [x] Patient sleeping [] Family support [] [] Out of room [] Palliative care [] [] Receiving care in room [] Pre-surgical visit [] Trauma [] Long length of stay [] ICU visit [] Other: Relational/Emotional Strength [] Patient feels connected with others/family/visitors/staff [] Distress [] Loneliness/isolation [] Abandonment Spirituality of Patient [] Person of Mabel [] Attends Gnosticist of their Mabel [] Believes in Prayer [] Reads Bible or Judaism materials [] There are Spiritual issues to be addressed Transverse Abdominal Muscle Nurse Interventions [] Prayer [] Active listening [] Non-anxious presence [] Spiritual/emotional support [] Crisis/trauma care [] Spiritual counseling [] Bereavement support [] Provided bereavement packet [] Provided Bible/devotional materials [] Provided toy/stuffed animal, coloring book to patient or family member [] Provided Communion [] Anointing/[place] [] Salvation [] Completed spiritual assessment [] Other: Impact on Illness or Injury [] Angry [] Fearful [] Anxious [] Often cries [] Exhaustion [] Unable to work [] Unable to attend presybeterian [] Unable to walk/stand [] Unable to read [] Unable to drive [] Unable to eat/drink [] Unable to sleep [] Unable to be with family [] Patient intubated [] Other: Summary Time spent with patient
--- NOTE | 2022-03-28 19:34 | PC.NURSE ---
Dr Johnson in to see patient. Discussed possible need for left aka. Patient and family verbalized understandning and to discuss plans. Patient to be discharged this night. No changes to current medication given.
--- NOTE | 2022-03-28 20:07 | PC.NURSE ---
Patient discharged to home. Instruction provided regarding follow up appointments, no medication changes. Patient has all belongings. Ride is waiting at main entrance. Patient taken by wheelchair to private vehicle.
== END 2022-03-28 19:45 | disposition home or self-care (01) ==
LOC: CCL 05:52 → MEDSURG 07:04
PROVIDERS: PCP Internal Medicine; Visit Provider Internal Medicine
DX: I70.262 Atherosclerosis of native arteries of extremities with gangrene, left leg (principal); S91.302A Unspecified open wound, left foot, initial encounter; X58.XXXA Exposure to other specified factors, initial encounter; I25.10 Atherosclerotic heart disease of native coronary artery without angina pectoris; Z79.82 Long term (current) use of aspirin; I25.2 Old myocardial infarction; Z82.49 Family history of ischemic heart disease and other diseases of the circulatory system; Z83.3 Family history of diabetes mellitus; F17.210 Nicotine dependence, cigarettes, uncomplicated
CPT/HCPCS: 36415; 36416; 75625; 75710; 82962; 96360; 99152; 99153; C1769; C1887; C1894; J1644; J2250; J3010; J3490; J7030; Q0163; Q9967

== ENCOUNTER → 2022-04-03 08:50 | Outpatient (BNVA) | payer MEDICARE, OTHER, SELFPAY | PROVIDERS: PCP Internal Medicine; Visit Provider Thoracic Surgery (Cardiothoracic Vascular Surgery) | DX: I96 Gangrene, not elsewhere classified (principal); E11.621 Type 2 diabetes mellitus with foot ulcer; L97.422 Non-pressure chronic ulcer of left heel and midfoot with fat layer exposed; L97.521 Non-pressure chronic ulcer of other part of left foot limited to breakdown of skin | CPT/HCPCS: 99213 ==

== ENCOUNTER → 2022-04-05 13:39 | Outpatient (BNVA) | payer MEDICARE, OTHER, SELFPAY | PROVIDERS: PCP Internal Medicine; Visit Provider Nurse Practitioner Family | DX: I73.9 Peripheral vascular disease, unspecified (principal); F17.210 Nicotine dependence, cigarettes, uncomplicated | CPT/HCPCS: 99213 ==

== ENCOUNTER 2022-04-11 10:21 | Inpatient (IN) | payer MEDICARE, OTHER, SELFPAY ==
[2022-04-07 10:32] VITALS: BMI 27.8
--- NOTE | 2022-04-07 10:48 | SUR.PREOP ---
Addendum entered by Dory Ma RN 04/07/22 11:44: Creatinine level critical: 5.6 Anesthesiologist notified. Potassium 4.3. Dr. Hernández's clinic called, left message with nurse. Patient has dialysis T,T,S. However, he will have dialysis the evening before surgery, 04/10/22. Original Note: Pre-operative appointment Patient instructed to hold Aspirin and Plavix from now until after surgery 03/12/22. Shower instructions given with Chlorhexadine and dial soap. Patient verbalized understanding. Labs drawn including cardiac type and screen with 2 units PRBC on hold.
[2022-04-07 11:03] LABS: Basophils # 0.1 10^3/uL (0.0-0.1); Basophils % 1.4 %; Eosinophils # 0.5 10^3/uL (0.0-0.8); Hematocrit 41.1 % (42.0-52.0); Hemoglobin 12.5 g/dL (11.7-16.6); Lymphocytes # 1.1 10^3/uL (0.8-4.8); Lymphocytes % 11.6 %; Mean Corpuscular HGB Conc 30.4 g/dL (30.0-36.0); Mean Corpuscular Hemoglobin 32.6 pg (28.0-34.0); Mean Corpuscular Volume 107.3 fl (80-94); Mean Platelet Volume 9.9 fL (7.4-10.4); Monocytes # 0.8 10^3/uL (0.2-0.9); Monocytes % 8.2 %; Neutrophils # 7.18 10^3/uL (1.8-7.7); Neutrophils % 73.4 %; Nucleated Red Blood Cells % 0 %; Platelet Count 143 10^3/cmm (130-400); Red Blood Count 3.83 10^6/uL (4.1-5.3); Red Cell Distribution Width 15.4 % (12.1-15.1); White Blood Count 9.8 10^3/uL (4.0-10.0)
[2022-04-07 11:25] LABS: Anion Gap 13.3 (5-19); Blood Urea Nitrogen 25 mg/dL (6-20); Calcium 9.2 mg/dL (8.5-10.5); Carbon Dioxide 38 mmol/L (22-29); Chloride 85 mmol/L (98-107); Glomerular Filtration Rate 11.1 mL/min (90-130); Glucose 136 mg/dL (65-115); Osmolality Calculated 280 mOsm/kg (285-295); Potassium 4.3 mmol/L (3.5-5.1); Sodium 132 mmol/L (136-145)
--- NOTE | 2022-04-07 14:51 | ANES.PREANE2 ---
Pre-Anesthetic Assessment Height/Weight: Height 1.73 m Weight 83.007 kg Preop Diagnosis: Gangrene left lower extremity Operation Date: 04/11/22 07:00 Proposed Procedures p Left above knee amputation I73.9, 64524(Left) - Tino Hernández MD Familial anesthetic complications: none Was Beta Iain taken within 24 hours: N/A Was Clonidine taken within 24 hours: N/A Social Tobacco and No alcohol Exam alert, oriented x 3 and regular rate & rhythm Airway Submandibular: within normal limits Cervical ROM: within normal limits Mallampati: Class II Dentition: chipped Comments: Comments: poor dentition Pulmonary Chronic Obstructive Pulmonary Disease CV/HEM Coronary Artery Disease, Hypertension, Myocardial Infarction and Peripheral Vascular Disease Chronic Renal Failure Dialysis T-Th-Sat, fistula RUE Metabolic Diabetes Mellitus [facility]/skel wheelchair, amputation Anesthetic Plan ASA status: 3 Anesthesia: Regional (specify below) (SAB) Medications/Allergies Home Medications Medication Instructions Recorded Confirmed Last Taken Type aspirin 81 mg tablet,delayed 81 mg PO BEDTIME 12/03/19 04/07/22 Unknown History release (Adult Low Dose Aspirin) vitamin E (dl, acetate) 180 mg 400 unit PO BEDTIME 12/03/19 04/07/22 Unknown History (400 unit) capsule midodrine 10 mg tablet 10 mg PO TID #270 tabs 08/18/21 04/07/22 Unknown Rx sodium chloride 0.9 % irrigation 1 irrig irrigation DAILY wound 01/30/22 04/07/22 Unknown Rx solution care #500 mL nitroglycerin 0.4 mg sublingual 0.4 mg sublingual Q5M PRN chest 02/14/22 04/07/22 Unknown Rx tablet (Nitrostat) pain #25 tabs sucroferric oxyhydroxide 500 mg 500 mg PO AC 02/14/22 04/07/22 Unknown History chewable tablet (Velphoro) clopidogrel 75 mg tablet 75 mg PO BEDTIME 03/28/22 04/07/22 Unknown History polyethylene glycol 3350 17 gram 17 g PO DAILY 04/07/22 04/07/22 Unknown History oral powder packet (Miralax) Allergies Allergy/AdvReac Type Severity Reaction Status Date / Time azithromycin [From Zithromax] Allergy Unknown Unknown Verified 04/05/22 14:05 ceftriaxone Allergy Unknown Unknown Verified 04/05/22 14:05 codeine Allergy Unknown Unknown Verified 04/05/22 14:05 hydrocodone Allergy Unknown Unknown Verified 04/05/22 14:05 Penicillins Allergy Unknown Unknown Verified 04/05/22 14:05 [facility]LY [facility] Anesthesia Medical History History of non-ST elevation myocardial infarction (NSTEMI) Hypotension Peripheral Vascular Disease Family History Other Cancer Diabetes Heart disease Hypertension Stroke Social History Smoking and tobacco status: current every day smoker cigarettes Packs smoked per day: 0.5 Data Anesthesia : 04/07/22 10:42 04/07/22 10:42 Short CBC 04/07/22 Range/Units 10:42 WBC 9.8 (4.0-10.0) 10^3/uL Hgb 12.5 (11.7-16.6) g/dL Hct 41.1 L (42.0-52.0) % MCV 107.3 H (80-94) fl Plt Count 143 (130-400) 10^3/cmm Neut % (Auto) 73.4 % Neut # (Auto) 7.18 (1.8-7.7) 10^3/uL BMP 04/07/22 10:42 Sodium 132 L Potassium 4.3 Chloride 85 L Carbon Dioxide 38 H BUN 25 H Creatinine 5.6 H* Glucose 136 H Calcium 9.2 Blood Bank 04/07/22 10:42 Blood Type A Negative Rho(D) Type Negative Antibody Screen Negative Cardiac Studies: No Data to Display
[2022-04-11] VITALS (18 sets, daily range): BP systolic 101–118; BP diastolic 62–78; PULSE 69–85; RESP 12–20; TEMP 36.6–37.3; O2SAT 92–99
--- NOTE | 2022-04-11 06:10 | W.PM.OPSUD ---
Surgery/Procedure H&P Update DATE OF PROCEDURE: April 11, 2022 DATE H&P PERFORMED: 04/05/22 H&P UPDATE INFORMATION: I have reviewed H&P completed within last 30 days, I have examined patient prior to procedure and No changes to prior documentation CHANGES TO PREVIOUS DOCUMENTATION: Some nausea this morning. Improved with IV Zofran. Details and risk of procedure again carefully discussed with Mr. Otto and his mother. All questions answered. They wish to proceed with planned surgery. He did receive hemodialysis yesterday. PREOP DIAGNOSIS: Gangrene left lower extremity PLANNED PROCEDURE: Operation Date: 04/11/22 07:00 Proposed Procedures p Left above knee amputation I73.9, 80527(Left) - Tino Hernández MD
[2022-04-11 06:24] LABS: Glucose Point of Care 122 mg/dL (70-110)
[2022-04-11] MEDS: ondansetron 2 mg/ML SDV 2 mL 4 MG IVP (06:25)
[2022-04-11] MEDS: sodium chloride 0.9% 1,000 ML 30 ML IV (06:26)
[2022-04-11] MEDS: vancomycin 1,500 MG/300 ML PIGGYBACK 200 MG IV (06:40)
[2022-04-11] MEDS: fentaNYL 50 mcg/mL INJ 2mL IVP (06:55)
[2022-04-11 07:23] LABS: Basophils # 0.1 10^3/uL (0.0-0.1); Basophils % 1.1 %; Eosinophils # 0.4 10^3/uL (0.0-0.8); Eosinophils % 4.3 %; Hematocrit 38.2 % (42.0-52.0); Hemoglobin 11.9 g/dL (11.7-16.6); Lymphocytes # 1.2 10^3/uL (0.8-4.8); Lymphocytes % 12.1 %; Mean Corpuscular HGB Conc 31.2 g/dL (30.0-36.0); Mean Corpuscular Hemoglobin 32.7 pg (28.0-34.0); Mean Corpuscular Volume 104.9 fl (80-94); Mean Platelet Volume 9.9 fL (7.4-10.4); Monocytes % 9.6 %; Neutrophils # 7.35 10^3/uL (1.8-7.7); Neutrophils % 72.6 %; Nucleated Red Blood Cells % 0 %; Platelet Count 136 10^3/cmm (130-400); Red Blood Count 3.64 10^6/uL (4.1-5.3); Red Cell Distribution Width 15.2 % (12.1-15.1); White Blood Count 10.1 10^3/uL (4.0-10.0)
[2022-04-11 07:44] LABS: Anion Gap 16.8 (5-19); Blood Urea Nitrogen 22 mg/dL (6-20); Calcium 8.3 mg/dL (8.5-10.5); Carbon Dioxide 32 mmol/L (22-29); Chloride 91 mmol/L (98-107); Glomerular Filtration Rate 12.9 mL/min (90-130); Glucose 126 mg/dL (65-115); Osmolality Calculated 287 mOsm/kg (285-295); Potassium 3.8 mmol/L (3.5-5.1); Sodium 136 mmol/L (136-145)
[2022-04-11] MEDS: vancomycin 1,000 MG SDV 1000 MG IRRIGATION (08:24)
--- NOTE | 2022-04-11 10:55 | PM.OP ---
Operative Report Date of procedure: April 11, 2022 Pre-op diagnosis: Preop Diagnosis Gangrene left lower extremity Post-op diagnosis: same Procedure done: Left above-knee amputation Specimens removed/disposition: Left lower extremity, mid thigh Surgeon: Tino Hernández Anesthesia: General Estimated blood loss (mL): 100 Complications: None Condition: stable Disposition: PACU Brief History: Mr. Otto is a 46-year-old gentleman with multiple medical problems including peripheral vascular disease, diabetes mellitus, end-stage renal disease requiring hemodialysis, status post peripheral vascular interventions, status post right BKA. He has been followed in wound care for worsening wounds of the left foot which have not responded to local treatment. Recent peripheral angiography by Dr. Phan on March 28 revealed a totally occluded and heavily calcified popliteal artery on the left which could not be crossed for intervention. Mr. Otto has began developing progressive gangrene of the left foot and it is not felt that the limb is salvageable. Given the severe mid and distal disease, left above-knee amputation has been recommended. This was discussed carefully with Mr. Otto and his mother. They are both in agreement to proceed. Procedure: Mr. Otto was taken to the operating room and placed on the OR table in the supine position. He underwent general endotracheal anesthesia. The entire left lower extremity was sterilely prepped and draped. Left thigh was marked for incision line. #10 scalpel blade was utilized to circumferentially incise the skin in a fishmouth pattern. Anterior musculature was sharply divided utilizing scalpel and minimal use of cautery. Periosteal elevator was used for dissecting the periosteum off of the femur. Oscillating saw was utilized to divide the femur. Amputation knife was then used posteriorly to complete amputation of the left lower extremity. Meticulous inspection was carried out and hemostasis was controlled with minimal use of cautery, surgical clips, and suture ligature as required. The superficial femoral artery was controlled, retracted proximally, ligated and divided. The sciatic nerve was dissected proximally, ligated, and divided. The wound was irrigated with large amounts of antibiotic solution. Hemostasis was confirmed. A large Hemovac drain was placed beneath the fascia. The fascia was reapproximated with interrupted 0 and 2-0 Vicryl suture. Skin was reapproximated in an interrupted mattress fashion with monofilament suture. Sterile dressings were applied followed by a bulky dressing. The patient tolerated the procedure well and was taken to PACU. I did primary substance abuse counselor with his mother at completion of procedure.
--- NOTE | 2022-04-11 11:08 | PC.CHAP ---
Pastoral Care Encounter/Spiritual Assessment Type of Contact [] Declined point of sale associate visit [] Patient/Family/Request visit [] Outpatient visit [] Follow-up visit [] Physician referral [] Code/Alert [x] Routine visit [] Staff referral [] Actively dying [] Patient sleeping [] Family support [] [] Out of room [] Palliative care [] [] Receiving care in room [] Pre-surgical visit [] Trauma [] Long length of stay [] ICU visit [] Other: Relational/Emotional Strength [x] Patient feels connected with others/family/visitors/staff [] Distress [] Loneliness/isolation [] Abandonment Spirituality of Patient [x] Person of Mabel [] Attends Holiness of their Mabel [x [] There are Spiritual issues to be addressed Metal Window Screen Assembler Interventions [x] Prayer [x] Active listening [] Non-anxious presence [x] Spiritual/emotional support [] Crisis/trauma care [] Spiritual counseling [] Bereavement support [] Provided bereavement packet [] Provided Bible/devotional materials [] Provided toy/stuffed animal, coloring book to patient or family member [] Provided Communion [] Anointing/[place] [] Salvation [x] Completed spiritual assessment [] Other: Impact on Illness or Injury [] Angry [] Fearful [] Anxious [] Often cries [] Exhaustion [] Unable to work [] Unable to attend presybeterian [] Unable to walk/stand [] Unable to read [] Unable to drive [] Unable to eat/drink [] Unable to sleep [] Unable to be with family [] Patient intubated [] Other: Summary Time spent with patient 10 min
--- NOTE | 2022-04-11 15:15 | ANE.PACU2 ---
Inpatient post-anesthesia follow up: Airway intact: Yes Vital signs: Temperature 98.1 F Pulse Rate 72 Respiratory Rate 14 Blood Pressure 111/74 Pulse Oximetry 95 Oxygen Delivery Me thod Room Air Oxygen Flow Rate 2 Fraction of Inspir ed Oxygen Hydration adequate: Yes Nausea and vomiting: No Pain level: 3 Mental status: Baseline
--- NOTE | 2022-04-11 16:18 | P.CONIM_ITS ---
Providers/Reason For Consult Consulting Physician/Specialty*: Tamy Valentino DO, telenephrology Reason for Consult*: ESRD s/p BKA Requesting Physician: Tino Hernández MD Attending Physician: Tino Hernández MD Primary Care Provider: Julius Aguila DO History of Present Illness History of Present Illness Neal Otto is a 46 year old male s/p BKA. On HD for > 9 years. Reports recent trouble with AVF - attempting to create new buttonholes. Medications/Allergies Home Medications Medication Instructions Recorded Confirmed Last Taken Type aspirin 81 mg tablet,delayed 81 mg PO BEDTIME 12/03/19 04/11/22 04/06/22 History release (Adult Low Dose Aspirin) vitamin E (dl, acetate) 180 mg 400 unit PO BEDTIME 12/03/19 04/11/22 04/10/22 History (400 unit) capsule midodrine 10 mg tablet 10 mg PO TID #270 tabs 08/18/21 04/11/22 04/11/22 Rx sodium chloride 0.9 % irrigation 1 irrig irrigation DAILY wound 01/30/22 04/07/22 Unknown Rx solution care #500 mL nitroglycerin 0.4 mg sublingual 0.4 mg sublingual Q5M PRN chest 02/14/2203/11 Unknown Rx tablet (Nitrostat) pain #25 tabs sucroferric oxyhydroxide 500 mg 500 mg PO AC 02/14/22 04/11/22 04/10/22 History chewable tablet (Velphoro) clopidogrel 75 mg tablet 75 mg PO BEDTIME 03/28/22 04/11/22 04/06/22 History polyethylene glycol 3350 17 gram 17 g PO DAILY 04/07/22 04/11/22 04/10/22 History oral powder packet (Miralax) Allergies Allergy/AdvReac Type Severity Reaction Status Date / Time azithromycin [From Zithromax] Allergy Unknown Unknown Verified 04/05/22 14:05 ceftriaxone Allergy Unknown Unknown Verified 04/05/22 14:05 codeine Allergy Unknown Unknown Verified 04/05/22 14:05 hydrocodone Allergy Unknown Unknown Verified 04/05/22 14:05 Penicillins Allergy Unknown Unknown Verified 04/05/22 14:05 Current Medications Generic Name Dose Route Start Last Admin Trade Name Freq PRN Reason Stop Dose Admin Fentanyl 50 mcg 04/11/22 05:47 04/11/22 06:55 Fentanyl 50 Mcg/Ml Inj 2ml IVP 50 mcg Q10M PRN Administration Preop Pain Sodium Chloride 1,000 mls @ 30 mls/hr 04/11/22 06:00 04/11/22 11:20 Sodium Chloride 0.9% IV 04/12/22 05:59 Infused .Q24H CHANEL Infusion Ondansetron HCl 4 mg 04/11/22 05:47 04/11/22 06:25 Ondansetron 2 Mg/Ml Sdv 2 Ml IVP 4 mg Q5M PRN Administration NAUSEA AND VOMITING Pantoprazole Sodium 40 mg 04/11/22 11:00 04/11/22 12:35 Pantoprazole 40 Mg Sdv IVP Not Given Q12H CHANEL PFSH Acute PFSH: Medical History History of non-ST elevation myocardial infarction (NSTEMI) Hypotension Peripheral Vascular Disease Family History Other Cancer Diabetes Heart disease Hypertension Stroke Social History Smoking and tobacco status: current every day smoker cigarettes Packs smoked per day: 0.5 Vitals/I&O/Wt Last Vital Signs Temp 98.1 F 04/11/22 12:30 Pulse 72 04/11/22 13:30 Resp 14 04/11/22 12:30 BP 111/74 04/11/22 13:30 Pulse Ox 95 04/11/22 13:30 O2 Del Method 04/11/22 13:30 O2 Flow Rate 2 04/11/22 10:55 04/11/22 04/11/22 04/11/22 06:59 14:59 22:59 Intake Total 800 / 800 Output Total 100 / 100 Balance 700 / 700 Physical Exam Const: COMMON NORMALS: no acute distress and alert Extremity: NARRATIVE EXTREMITY EXAM: left forearm AVF + bruising, no signs of infection Neuro: SENSORIUM/ORIENTATION: Yes alert Data : 04/11/22 07:10 04/11/22 07:25 A&P Assessment and plan (1) ESRD (end stage renal disease): seen via telemedicine with assistance of RN at bedside Plan 1. ESRD, HD MWF Plan: HD tomorrow, 3.5h, 2K, 1500 ml UF. Check labs in AM. No IVs, BPs, Blood draws left arm Consult Attestations Medical Necessity Statement: per primary service Time Spent in Patient Care: 16 - 35 minutes Coding Level of Care Code Acute Eligibility Services Representative for g Fwd Diagnoses ESRD (end stage renal disease) N18.6
[2022-04-11] MEDS: midodrine 5 mg TABLET 10 MG PO (16:32)
[2022-04-11] MEDS: HYDROmorphone 1 mg/mL INJ 1 mL 0.5 MG IVP (16:33)
[2022-04-11] MEDS: aspirin 81 mg EC Tablet PO (21:13)
[2022-04-11 21:32] LABS: Hepatitis B Surface AB 115.4 (11.5-1000); Hepatitis B Surface Antigen Non-Reactive (Nonreactive); Hepatitis C Virus Antibody Non-Reactive (Nonreactive)
[2022-04-12] VITALS (10 sets, daily range): BP systolic 89–125; BP diastolic 58–84; PULSE 66–87; RESP 16–20; TEMP 36.1–36.8; O2SAT 96–100
[2022-04-12] MEDS: morphine IR 15 mg Tablet PO (00:42)
[2022-04-12 02:59] LABS: Basophils % 0.4 %; Eosinophils % 0.1 %; Hematocrit 38.9 % (42.0-52.0); Hemoglobin 11.6 g/dL (11.7-16.6); Lymphocytes # 1.4 10^3/uL (0.8-4.8); Lymphocytes % 12.4 %; Mean Corpuscular HGB Conc 29.8 g/dL (30.0-36.0); Mean Corpuscular Hemoglobin 31.7 pg (28.0-34.0); Mean Corpuscular Volume 106.3 fl (80-94); Mean Platelet Volume 10.1 fL (7.4-10.4); Monocytes # 0.9 10^3/uL (0.2-0.9); Monocytes % 7.9 %; Neutrophils # 8.63 10^3/uL (1.8-7.7); Neutrophils % 78.7 %; Nucleated Red Blood Cells % 0 %; Platelet Count 161 10^3/cmm (130-400); Red Blood Count 3.66 10^6/uL (4.1-5.3); Red Cell Distribution Width 15.2 % (12.1-15.1)
[2022-04-12 03:28] LABS: Anion Gap 19.9 (5-19); Blood Urea Nitrogen 37 mg/dL (6-20); Calcium 8.9 mg/dL (8.5-10.5); Carbon Dioxide 33 mmol/L (22-29); Chloride 84 mmol/L (98-107); Glomerular Filtration Rate 9.2 mL/min (90-130); Glucose 130 mg/dL (65-115); Osmolality Calculated 284 mOsm/kg (285-295); Potassium 4.9 mmol/L (3.5-5.1); Sodium 132 mmol/L (136-145)
--- NOTE | 2022-04-12 05:55 | PM.PN ---
Subjective Subjective: Postop day #1 status post left above-knee amputation. Hemovac drain output 50 cc overnight. Postop discomfort is under good control. He has been evaluated by our nephrology service and will be scheduled for hemodialysis today. He is in good spirits. Surgical dressing is clean and dry. Vitals/I&O/Wt Last Vital Signs Temp 98.3 F 04/12/22 04:00 Pulse 66 04/12/22 04:00 Resp 17 04/12/22 04:00 BP 104/70 04/12/22 04:00 Pulse Ox 96 04/12/22 04:00 O2 Del Method 04/12/22 04:00 O2 Flow Rate 2 04/11/22 10:55 04/11/22 04/11/22 04/12/22 14:59 22:59 06:59 Intake Total 800 / 800 Output Total 100 / 100 50 / 150 Balance 700 / 700 -50 / 650 Physical Exam Const: COMMON NORMALS: no acute distress and patient oriented x3 OTHER: Vital signs are stable. Laboratory data has been reviewed this morning. Extremity: NARRATIVE EXTREMITY EXAM: Left above-knee amputation dressing is clean and dry and intact. Hemovac drain in position. Drain output 50 cc overnight. Neuro: COMMON NORMALS: patient oriented x3 Data : 04/12/22 02:15 04/12/22 02:15 A&P Assessment and plan (1) Status post above-knee amputation of left lower extremity: Postop day #1 status post left AKA. Plan: Hemodialysis today. I will leave surgical dressing in place until tomorrow. We will then reassess incision line and consider drain removal depending upon output for the next 24 hours. Greatly appreciate assistance and expertise of our nephrology service. Attestations Medical Necessity Statement*: Postop day #1 status post left above-knee amputation for progressive lower extremity gangrene with severe peripheral vascular disease. End-stage renal disease with hemodialysis Coding Level of Care Code Acute Emergency Medicine Specialist for Meka Fischer Diagnoses Status post above-knee amputation of left lower extremity Z89.612
[2022-04-12] MEDS: polyethylene glycol 3350 Pkt 17 gm PO (08:18)
[2022-04-12] MEDS: midodrine 5 mg TABLET 10 MG PO ×2 (08:18→15:39)
--- NOTE | 2022-04-12 10:27 | PC.OT ---
OT EVALUATION ATTEMPTED. PATIENT CURRENTLY IN DIALYSIS. WILL ATTEMPT AGAIN AT A LATER TIME
[2022-04-12] MEDS: acetaminophen 325 mg Tablet 650 MG PO (16:56)
[2022-04-12] MEDS: NON-FORMULARY MEDICATION (Sucroferric Oxyhydroxide [Velphoro] 500 mg tablet,chewable) PO (16:59)
--- NOTE | 2022-04-12 17:23 | P.PN_ITS ---
Subjective Subjective: see after HD. uneventful. He has mild pain at BKA Vitals/I&O/Wt Last Vital Signs Temp 97.5 F L 04/12/22 15:36 Pulse 74 04/12/22 15:36 Resp 20 H 04/12/22 15:36 BP 92/58 04/12/22 15:36 Pulse Ox 100 04/12/22 15:36 O2 Del Method 04/12/22 15:36 O2 Flow Rate 2 04/11/22 10:55 04/12/22 04/12/22 04/12/22 06:59 14:59 22:59 Intake Total 2223 / 2223 Output Total 50 / 150 600 / 600 Balance -50 / 650 1623 / 1623 Weight last 48 hrs Weight 76.3 kg Weight 77.621 kg Physical Exam Const: COMMON NORMALS: no acute distress Data : 04/12/22 02:15 04/12/22 02:15 A&P Assessment and plan (1) ESRD (end stage renal disease): Plan seen via telemedicine with assistance of RN at bedside 1. ESRD, HD MWF. 2. S/P BKA Rec: No BPs, IVs, blood draws left arm Attestations Medical Necessity Statement*: see above Time Spent in Patient Care: 16 - 35 minutes Coding Level of Care Code Acute Rubber Flap Cutter for Meka Fwd Exam Problem Focused Diagnoses ESRD (end stage renal disease) N18.6
[2022-04-12] MEDS: vancomycin 1,000 MG in sodium chloride 0.9% 250 ML 250 MG IV (18:25)
[2022-04-13] VITALS (9 sets, daily range): BP systolic 97–113; BP diastolic 63–75; PULSE 68–72; RESP 16–18; TEMP 36.4–36.8; O2SAT 95–99
--- NOTE | 2022-04-13 05:08 | PC.NURSE ---
Rounding performed with Dr Hernández. Received verbal order to discontinue telemetry orders.
[2022-04-13] MEDS: NON-FORMULARY MEDICATION (Sucroferric Oxyhydroxide [Velphoro] 500 mg tablet,chewable) PO ×3 (06:07→16:53)
--- NOTE | 2022-04-13 06:16 | P.PN_ITS ---
Subjective Subjective: Postop day #2 status post left above-knee amputation. Drain output 50 cc overnight. Postoperative discomfort is been under good control. He underwent hemodialysis yesterday, which he tolerated well. He is scheduled for dialysis again tomorrow prior to discharge to [facility]. Vitals/I&O/Wt Last Vital Signs Temp 98.0 F 04/13/22 04:00 Pulse 70 04/13/22 04:00 Resp 17 04/13/22 04:00 BP 105/70 04/13/22 04:00 Pulse Ox 99 04/13/22 04:00 O2 Del Method 04/12/22 22:08 O2 Flow Rate 2 04/11/22 10:55 04/12/22 04/12/22 04/13/22 14:59 22:59 06:59 Intake Total 2223 / 2223 550 / 2773 480 / 3253 Output Total 600 / 600 0 / 600 50 / 650 Balance 1623 / 1623 550 / 2173 430 / 2603 Weight last 48 hrs Weight 170 lb Weight 168 lb 3.403 oz Weight 171 lb 2 oz Physical Exam Extremity: NARRATIVE EXTREMITY EXAM: Surgical dressing remains in place. KARON drain output, 50 cc overnight. Mr. Otto is a bit hesitant to remove his surgical dressing, therefore I will wait and remove it this afternoon which time I will discontinue his KARON drain. Data : 04/12/22 02:15 04/12/22 02:15 A&P Assessment and plan (1) Status post above-knee amputation of left lower extremity: Postop day #2 status post left AKA Plan: Discontinue KARON drain and replace surgical dressing this afternoon. Plan for hemodialysis tomorrow prior to discharge to [facility]. We will request of vancomycin be administered at the end of his dialysis run tomorrow. Physical therapy consultation to assist with training for safe transfers. Greatly appreciate the expertise to our nephrology colleagues, Dr. Chicho Sawant Medical Necessity Statement*: Status post left AKA secondary to gangrene Coding Level of Care Code Acute Waiter/Waitress Club for Meka Fwdeyvi Diagnoses Status post above-knee amputation of left lower extremity Z89.612
--- NOTE | 2022-04-13 06:38 | P.PN_ITS ---
Subjective Subjective: feels well. dialysis went well yesterday. no n/v/f/c/junior/d/sob Medications: Reviewed: Yes Medication Review Details: Current Medications Acetaminophen (Acetaminophen 325 Mg Tablet) 650 mg PO Q6H PRN PRN Reason: MILD PAIN Last Admin: 04/12/22 16:56 Dose: 650 mg Aspirin (Aspirin 81 Mg Ec Tablet) 81 mg PO BEDTIME [facility] Last Admin: 04/12/22 21:22 Dose: Not Given Vancomycin HCl 1,000 mg/ (Sodium Chloride) 250 mls @ 250 mls/hr IV Q36H [facility]; Protocol Last Infusion: 04/12/22 19:25 Dose: Infused Ketorolac Tromethamine (Ketorolac 30 Mg/Ml Inj) 30 mg IVP Q6H PRN PRN Reason: MODERATE PAIN Stop: 04/16/22 10:30 Midodrine (Midodrine 5 Mg Tablet) 10 mg PO TID [facility] Last Admin: 04/12/22 21:23 Dose: Not Given Morphine Sulfate (Morphine 4 Mg/Ml Sdv 1 Ml) 2 mg IVP Q1H PRN PRN Reason: SEVERE PAIN Morphine Sulfate (Morphine Ir 15 Mg Tablet) 15 mg PO Q4H PRN PRN Reason: SEVERE PAIN Last Admin: 04/12/22 00:42 Dose: 15 mg Naloxone HCl (Naloxone 0.4 Mg/Ml Sdv) 0.1 mg IVP Q2M PRN PRN Reason: OPIATERV Nitroglycerin (Nitroglycerin 0.4 Mg Sublingual Tablet) 0.4 mg SUBLINGUAL Q5M PRN PRN Reason: chest pain Non-Formulary Medication (Sucroferric Oxyhydroxide [Velphoro]) 0 mg PO AC [facility] Last Admin: 04/13/22 06:07 Dose: 500 mg Ondansetron HCl (Ondansetron 2 Mg/Ml Sdv 2 Ml) 4 mg IVP Q8H PRN PRN Reason: vomiting, or N/V if npo Pantoprazole Sodium (Pantoprazole 40 Mg Sdv) 40 mg IVP Q12H [facility] Last Admin: 04/12/22 22:51 Dose: Not Given Polyethylene Glycol (Polyethylene Glycol 3350 Pkt 17 Gm) 17 gm PO DAILY [facility] Last Admin: 04/12/22 08:18 Dose: 17 gm Vitals/I&O/Wt Last Vital Signs Temp 98.0 F 04/13/22 04:00 Pulse 70 04/13/22 04:00 Resp 17 04/13/22 04:00 BP 105/70 04/13/22 04:00 Pulse Ox 99 04/13/22 04:00 O2 Del Method 04/12/22 22:08 O2 Flow Rate 2 04/11/22 10:55 04/12/22 04/12/22 04/13/22 14:59 22:59 06:59 Intake Total 2223 / 2223 550 / 2773 480 / 3253 Output Total 600 / 600 0 / 600 50 / 650 Balance 1623 / 1623 550 / 2173 430 / 2603 Weight last 48 hrs Weight 77.111 kg Weight 76.3 kg Weight 77.621 kg Physical Exam Narrative: NARD in bed vs noted- bp on low side heent- nc/at, eomi, anicteric neck supple lungs clear heart reg abd soft, nt, nd, + bs ext RT BKA, left AKA w/ drain, bandage LUE AVF w/ thrill and bruit- does have an ecchymosis by it neuro a,a, o x 3 Data : 04/12/22 02:15 04/12/22 02:15 A&P Assessment and plan (1) ESRD (end stage renal disease): 46 yr old man POD #2 s/p Left sided AKA 1. eSRD hd in am 2. bp and hgb okay 3. meds reviewed- check vanco trough in am Plan see above Attestations Medical Necessity Statement*: per surgery Time Spent in Patient Care: 16 - 35 minutes (>than 50% of time spent in counselling and/or direct pt care on unit) . Coding Level of Care Code Acute Matchbook Maker for Chg Fwd Diagnoses ESRD (end stage renal disease) N18.6
[2022-04-13] MEDS: midodrine 5 mg TABLET 10 MG PO ×2 (08:22→14:40)
[2022-04-13] MEDS: polyethylene glycol 3350 Pkt 17 gm PO (08:23)
[2022-04-13 08:37] LABS: Alanine Aminotransferase 7 U/L (0-41); Albumin Level 3.6 g/dL (3.5-5.2); Alkaline Phosphatase 79 U/L (40-130); Anion Gap 17.1 (5-19); Aspartate Amino Transferase 14 U/L (0-40); Blood Urea Nitrogen 28 mg/dL (6-20); Calcium 9.3 mg/dL (8.5-10.5); Carbon Dioxide 31 mmol/L (22-29); Chloride 86 mmol/L (98-107); Globulin 4.1 g/dL (1.3-4.6); Glomerular Filtration Rate 13.2 mL/min (90-130); Glucose 112 mg/dL (65-115); Osmolality Calculated 276 mOsm/kg (285-295); Phosphorus 3.7 mg/dL (2.5-4.5); Potassium 4.1 mmol/L (3.5-5.1); Sodium 130 mmol/L (136-145); Total Bilirubin 0.6 mg/dL (0.15-1.2); Total Protein 7.7 g/dL (6.6-8.7)
[2022-04-13] MEDS: morphine IR 15 mg Tablet PO (14:40)
[2022-04-14 03:33] LABS: Basophils # 0.1 10^3/uL (0.0-0.1); Basophils % 1.3 %; Eosinophils # 0.7 10^3/uL (0.0-0.8); Hematocrit 37.1 % (42.0-52.0); Hemoglobin 11.2 g/dL (11.7-16.6); Lymphocytes # 1.8 10^3/uL (0.8-4.8); Lymphocytes % 20.4 %; Mean Corpuscular HGB Conc 30.2 g/dL (30.0-36.0); Mean Corpuscular Hemoglobin 32.4 pg (28.0-34.0); Mean Corpuscular Volume 107.2 fl (80-94); Mean Platelet Volume 9.8 fL (7.4-10.4); Monocytes # 0.9 10^3/uL (0.2-0.9); Neutrophils # 5.36 10^3/uL (1.8-7.7); Neutrophils % 59.9 %; Nucleated Red Blood Cells % 0 %; Platelet Count 147 10^3/cmm (130-400); Red Blood Count 3.46 10^6/uL (4.1-5.3); Red Cell Distribution Width 15.7 % (12.1-15.1)
[2022-04-14 03:59] LABS: Alanine Aminotransferase 8 U/L (0-41); Albumin Level 3.3 g/dL (3.5-5.2); Alkaline Phosphatase 72 U/L (40-130); Anion Gap 17.3 (5-19); Aspartate Amino Transferase 16 U/L (0-40); Blood Urea Nitrogen 35 mg/dL (6-20); Calcium 9.2 mg/dL (8.5-10.5); Carbon Dioxide 32 mmol/L (22-29); Chloride 88 mmol/L (98-107); Globulin 4.5 g/dL (1.3-4.6); Glomerular Filtration Rate 9.8 mL/min (90-130); Glucose 111 mg/dL (65-115); Magnesium 2.5 mg/dL (1.7-2.3); Osmolality Calculated 285 mOsm/kg (285-295); Phosphorus 3.7 mg/dL (2.5-4.5); Potassium 4.3 mmol/L (3.5-5.1); Sodium 133 mmol/L (136-145); Total Bilirubin 0.6 mg/dL (0.15-1.2); Total Protein 7.8 g/dL (6.6-8.7)
[2022-04-14 04:00] VITALS: BP 103/65; PULSE 74; RESP 17; TEMP 36.9; O2SAT 95
--- NOTE | 2022-04-14 05:21 | P.DS_ITS ---
Discharge Providers Date of Admission: 04/11/22 10:21 Date of Discharge: April 14, 2022 Attending Provider at Admission: Tino Hernández MD Attending Provider at Discharge: Tino Hernández MD Consults: Nephrology Primary Care Provider: Julius Aguila DO Diagnoses at Discharge Discharge Diagnosis (1) ESRD (end stage renal disease): Details from hospital stay: Mr. Otto is a 46-year-old gentleman with end-stage renal disease and severe peripheral vascular disease was been followed in wound care services for a wound of the left foot which has failed to heal despite maximal management. 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 He had progressive gangrene of the left foot and the distal left lower extremity resulting the need for amputation. He was electively admitted on April 11 and underwent left above-knee amputation related to his severe distal disease. He has conval[facility]ced [facility] where he has done well with good pain control. He is at low KARON drain output and the drain was discontinued after the second postoperative day. He has been receiving hemodialysis on schedule through directions from our total nephrology service. He has been receiving vancomycin postoperatively as well. Currently tolerating a diet well. His surgical dressings have been removed. His incision line is clean, dry, and intact. Arrangements have been made for continued care after [place] [facility]. We will plan for discharge today after he receives his hemodialysis which is scheduled for this morning. Currently at the time of discharge he is in stable condition. He will follow-up with wound care services early next week. Status: Acute Physical Exam Resp: COMMON NORMALS: normal respiratory effort, No use of accessory muscles and clear to auscultation bilaterally AUSCULTATION: clear to auscultation bilaterally Cardio: COMMON NORMALS: regular rate, regular rhythm, S1 normal heart sound present, No murmurs present (Cardio) and No rub (Cardio) RATE: regular rate RHYTHM: regular rhythm HEART SOUNDS: S1 normal heart sound present Extremity: NARRATIVE EXTREMITY EXAM: Left AKA incision is clean, dry, and intact. No substantial swelling. Postoperative discomfort is under good control with oral medications. Discharge Data Studies Completed and Pending Pending at discharge Category Date Time Status Complete Blood Count w/Auto AM LABS Lab 04/15/22 04:00 Ordered Complete Blood Count w/Auto AM LABS Lab 04/16/22 04:00 Ordered Comprehensive Metabolic Panel AM LABS Lab 04/15/22 04:00 Ordered Comprehensive Metabolic Panel AM LABS Lab 04/16/22 04:00 Ordered Leukocyte Reduced RBC Routine Lab 04/07/22 10:42 Results Magnesium AM LABS Lab 04/15/22 04:00 Ordered Magnesium AM LABS Lab 04/16/22 04:00 Ordered Phosphorus AM LABS Lab 04/15/22 04:00 Ordered Phosphorus AM LABS Lab 04/16/22 04:00 Ordered Type and Screen - Cardiac Routine Lab 04/07/22 10:42 Results Vancomycin Trough Routine Lab 04/14/22 05:10 Ordered Pathology: Surgical [PTH] Routine Pth 04/11/22 10:26 Received Laboratory Results WBC 9.0 10^3/uL (4.0-10.0) 04/14/22 02:55 Corrected WBC Cancelled 04/11/22 07:00 RBC 3.46 10^6/uL (4.1-5.3) L 04/14/22 02:55 Hgb 11.2 g/dL (11.7-16.6) L 04/14/22 02:55 Hct 37.1 % (42.0-52.0) L 04/14/22 02:55 MCV 107.2 fl (80-94) H 04/14/22 02:55 MCH 32.4 pg (28.0-34.0) 04/14/22 02:55 MCHC 30.2 g/dL (30.0-36.0) 04/14/22 02:55 RDW 15.7 % (12.1-15.1) H 04/14/22 02:55 Plt Count 147 10^3/cmm (130-400) 04/14/22 02:55 MPV 9.8 fL (7.4-10.4) 04/14/22 02:55 Gran % Cancelled 04/11/22 07:00 Neut % (Auto) 59.9 % 04/14/22 02:55 Lymph % (Auto) 20.4 % 04/14/22 02:55 [place] % (Auto) 10.0 % 04/14/22 02:55 Eos % (Auto) 8.0 % 04/14/22 02:55 Baso % (Auto) 1.3 % 04/14/22 02:55 Neut # (Auto) 5.36 10^3/uL (1.8-7.7) 04/14/22 02:55 Lymph # (Auto) 1.8 10^3/uL (0.8-4.8) 04/14/22 02:55 [place] # (Auto) 0.9 10^3/uL (0.2-0.9) 04/14/22 02:55 Eos # (Auto) 0.7 10^3/uL (0.0-0.8) 04/14/22 02:55 Baso # (Auto) 0.1 10^3/uL (0.0-0.1) 04/14/22 02:55 Absolute Gran (auto) Cancelled 04/11/22 07:00 Nucleated RBC % (auto) 0 % 04/14/22 02:55 Nucleated RBCs # 0.0 /100WBC 04/14/22 02:55 Sodium 133 mmol/L (136-145) L 04/14/22 02:55 Potassium 4.3 mmol/L (3.5-5.1) 04/14/22 02:55 Chloride 88 mmol/L (98-107) L 04/14/22 02:55 Carbon Dioxide 32 mmol/L (22-29) H 04/14/22 02:55 Anion Gap 17.3 (5-19) 04/14/22 02:55 BUN 35 mg/dL (6-20) H 04/14/22 02:55 Creatinine 6.2 mg/dL (0.7-1.2) H* 04/14/22 02:55 GFR Calculation 9.8 mL/min (90-130) L 04/14/22 02:55 Glucose 111 mg/dL (65-115) 04/14/22 02:55 POC Glucose 122 mg/dL (70-110) H 04/11/22 06:12 Calculated Osmolality 285 mOsm/kg (285-295) 04/14/22 02:55 Calcium 9.2 mg/dL (8.5-10.5) 04/14/22 02:55 Phosphorus 3.7 mg/dL (2.5-4.5) 04/14/22 02:55 Magnesium 2.5 mg/dL (1.7-2.3) H 04/14/22 02:55 Total Bilirubin 0.6 mg/dL (0.15-1.2) 04/14/22 02:55 AST 16 U/L (0-40) 04/14/22 02:55 ALT 8 U/L (0-41) 04/14/22 02:55 Alkaline Phosphatase 72 U/L (40-130) 04/14/22 02:55 Total Protein 7.8 g/dL (6.6-8.7) 04/14/22 02:55 Albumin 3.3 g/dL (3.5-5.2) L 04/14/22 02:55 Globulin 4.5 g/dL (1.3-4.6) 04/14/22 02:55 Hep Bs Antigen Non-reactive (Nonreactive) 04/11/22 18:52 Hep Bs Antibody 115.4 (11.5-1000) 04/11/22 18:52 Hepatitis C Antibody Non-reactive (Nonreactive) 04/11/22 18:52 Blood Type A Negative 04/07/22 10:42 Rho(D) Type Negative 04/07/22 10:42 Antibody Screen Negative 04/07/22 10:42 Crossmatch See Detail 04/07/22 10:42 Procedures Performed Left above-knee amputation on April 11, 2022 Vitals Last Vital Signs Temp 97.8 F 04/13/22 23:35 Pulse 68 04/13/22 23:35 Resp 16 04/13/22 23:35 BP 103/68 04/13/22 23:35 Pulse Ox 95 04/13/22 23:35 O2 Del Method 04/13/22 23:35 O2 Flow Rate 2 04/11/22 10:55 Discharge Plan Discharge Patient Disposition: Xfer SNF Condition: Stable Prescriptions: New morphine 15 mg Tablet 15 mg PO 3XD PRN (Reason: Severe Pain) Qty: 30 0RF acetaminophen 325 mg Tablet 650 mg PO Q6H PRN (Reason: Mild Pain) Qty: 100 0RF Continued nitroglycerin [Nitrostat] 0.4 mg tablet, sublingual 0.4 mg SUBLINGUAL Q5M PRN (Reason: chest pain) Qty: 25 1RF Rx Instructions: do not exceed 3 doses per episode aspirin [Adult Low Dose Aspirin] 81 mg tablet,delayed release (DR/EC) 81 mg PO BEDTIME vitamin E (dl, acetate) 400 unit capsule 400 unit PO BEDTIME midodrine 10 mg tablet 10 mg PO TID Qty: 270 3RF Rx Instructions: do not give last dose of day after 6PM or within 4 hrs of bedtime Velphoro 500 mg tablet,chewable 500 mg PO AC sodium chloride 0.9 % solution 1 irrig irrigation DAILY MDD once daily Qty: 500 3RF clopidogrel 75 mg tablet 75 mg PO BEDTIME polyethylene glycol 3350 [Miralax] 17 gram Powder In Packet 17 g PO DAILY Discharge Orders: Discharge Order (Routine); Ordered 04/14/22 Ordered By: Tino Hernández Referrals[facility], [Staff Physician] - 1 week Discharge Diet: Usual diet Discharge Activity: As per PT/OT instructions Patient Instructions: Post Anesthesia Care Discharge Attestations Time Spent in Discharge Care*: less than 30 min Specific Discharge Activities: educating patient, discussing with immigration case worker/social workers/dc planners, documenting/other paperwork and evaluating patient/reviewing data Status at Discharge: Cognitive status at discharge: cognitively intact , Behavioral status at discharge: cooperative , Functional status at discharge: wheelchair bound , Overall status at discharge: patient has a new baseline Quality Metrics Clinical Quality Measures [ No reported AMI, CVA or VTE this stay] Coding Level of Care Code Acute Chg FW DC note Diagnoses ESRD (end stage renal disease) N18.6
[2022-04-14 05:46] LABS: Vancomycin Trough 30.2 ug/mL (10-15)
--- NOTE | 2022-04-14 07:27 | P.PN_ITS ---
Subjective Subjective: feels well. no n/v/d/c/junior/ sob. has some constipation. no leg pains Medications: Reviewed: Yes Medication Review Details: Current Medications Acetaminophen (Acetaminophen 325 Mg Tablet) 650 mg PO Q6H PRN PRN Reason: MILD PAIN Last Admin: 04/12/22 16:56 Dose: 650 mg Aspirin (Aspirin 81 Mg Ec Tablet) 81 mg PO BEDTIME [facility] Last Admin: 04/13/22 20:29 Dose: Not Given Albumin Human (Albumin) 12.5 gm in 50 mls @ 60 mls/hr IV PRN PRN PRN Reason: Hypotension and/or symptomatic Midodrine (Midodrine 5 Mg Tablet) 10 mg PO TID [facility] Last Admin: 04/13/22 20:29 Dose: Not Given Morphine Sulfate (Morphine 4 Mg/Ml Sdv 1 Ml) 2 mg IVP Q1H PRN PRN Reason: SEVERE PAIN Morphine Sulfate (Morphine Ir 15 Mg Tablet) 15 mg PO Q4H PRN PRN Reason: SEVERE PAIN Last Admin: 04/13/22 14:40 Dose: 15 mg Naloxone HCl (Naloxone 0.4 Mg/Ml Sdv) 0.1 mg IVP Q2M PRN PRN Reason: OPIATERV Nitroglycerin (Nitroglycerin 0.4 Mg Sublingual Tablet) 0.4 mg SUBLINGUAL Q5M PRN PRN Reason: chest pain Non-Formulary Medication (Sucroferric Oxyhydroxide [Velphoro]) 0 mg PO AC [facility] Last Admin: 04/13/22 16:53 Dose: 500 mg Ondansetron HCl (Ondansetron 2 Mg/Ml Sdv 2 Ml) 4 mg IVP Q8H PRN PRN Reason: vomiting, or N/V if npo Pantoprazole Sodium (Pantoprazole 40 Mg Sdv) 40 mg IVP Q12H [facility] Last Admin: 04/13/22 22:11 Dose: Not Given Polyethylene Glycol (Polyethylene Glycol 3350 Pkt 17 Gm) 17 gm PO DAILY [facility] Last Admin: 04/13/22 08:23 Dose: 17 gm Vitals/I&O/Wt Last Vital Signs Temp 98.4 F 04/14/22 04:00 Pulse 74 04/14/22 04:00 Resp 17 04/14/22 04:00 BP 103/65 04/14/22 04:00 Pulse Ox 95 04/14/22 04:00 O2 Del Method 04/14/22 04:00 O2 Flow Rate 2 04/11/22 10:55 04/13/22 04/14/22 04/14/22 22:59 06:59 14:59 Intake Total 120 / 480 Balance 120 / 480 Weight last 48 hrs Weight 77.111 kg Weight 76.3 kg Physical Exam Narrative: NARD in bed vs noted- bp on low side heent- nc/at, eomi, anicteric neck supple lungs clear heart reg abd soft, nt, nd, + bs ext RT BKA, left AKA w/ bandage LUE AVF w/ thrill and bruit- does have an ecchymosis by it neuro a,a, o x 3 Data : 04/14/22 02:55 04/14/22 02:55 A&P Assessment and plan (1) ESRD (end stage renal disease): 46 yr old man POD #3 s/p Left sided AKA 1. eSRD hd now 3 hrs, 2k, remove 1.5l 2. bp and hgb okay 3. meds reviewed- check vanco trough -30- do not redose till level is under 20 4. mild hyponatremia-is improving 5. normal phos Plan see above Attestations Medical Necessity Statement*: per medicine and surgert- ESRD- HD MWF Time Spent in Patient Care: 16 - 35 minutes (>than 50% of time spent in counselling and/or direct pt care on unit) . Coding Level of Care Code Acute Press Hand Supervisor for Meka Fwdeyvi Diagnoses ESRD (end stage renal disease) N18.6
--- NOTE | 2022-04-14 07:45 | PC.NURSE ---
Report received from CHARLA Black, at shift change.
[2022-04-14] MEDS: polyethylene glycol 3350 Pkt 17 gm PO (08:20)
[2022-04-14] MEDS: midodrine 5 mg TABLET 10 MG PO ×2 (08:20→14:13)
[2022-04-14] MEDS: NON-FORMULARY MEDICATION (Sucroferric Oxyhydroxide [Velphoro] 500 mg tablet,chewable) PO ×2 (08:20→13:49)
[2022-04-14 09:16] VITALS: BP 100/63; PULSE 73; RESP 13; TEMP 36.8; O2SAT 97
[2022-04-14 09:17] LABS: SARS Covid-2 Antigen negative (Negative)
--- NOTE | 2022-04-14 10:58 | PC.SOCIAL ---
IMM update IMM updated with patient. Verbalized an understanding. Copy PG 2 provided. Initialled, dated, timed, and placed in chart.
[2022-04-14 12:00] VITALS: BP 106/71; PULSE 83; RESP 15; TEMP 36.4; O2SAT 98
[2022-04-14 13:24] VITALS: BP 106/64; BP 115/75; PULSE 76; PULSE 82; RESP 16; RESP 18; TEMP 36.2; TEMP 36.8
--- NOTE | 2022-04-14 13:49 | PC.NURSE ---
Report called to SHAUN Adams, at [facility].
== END 2022-04-14 14:40 | disposition skilled nursing facility (03) | DRG 239 ==
LOC: MEDSURG 10:24
PROVIDERS: Anesthesiology; Internal Medicine; Internal Medicine Nephrology; Admitting Provider Thoracic Surgery (Cardiothoracic Vascular Surgery); PCP Internal Medicine; Visit Provider Thoracic Surgery (Cardiothoracic Vascular Surgery)
PROC: 0Y680ZZ Detachment at Left Femoral Region, Open Approach (ICD-10-PCS; CPT 27590; principal; 2022-04-11 07:00)
DX: E11.52 Type 2 diabetes mellitus with diabetic peripheral angiopathy with gangrene (principal); N18.6 End stage renal disease; I70.262 Atherosclerosis of native arteries of extremities with gangrene, left leg; I12.0 Hypertensive chronic kidney disease with stage 5 chronic kidney disease or end stage renal disease; I25.10 Atherosclerotic heart disease of native coronary artery without angina pectoris; J44.9 Chronic obstructive pulmonary disease, unspecified; I25.2 Old myocardial infarction; Z79.02 Long term (current) use of antithrombotics/antiplatelets; Z79.82 Long term (current) use of aspirin; Z99.2 Dependence on renal dialysis; Z89.512 Acquired absence of left leg below knee; Z89.511 Acquired absence of right leg below knee
CPT/HCPCS: 36415; 36416; 71045; 71275; 76705; 78452; 80048; 80053; 80202; 82962; 83690; 83735; 83880; 84100; 84145; 84484; 85025; 85378; 85651; 86140; 86706; 86803; 86850; 86900; 86920; 87040; 87340; 87426; 88307; 88311; 92920; 93005; 93017; 93306; 93454; 94760; 96360; 97161; 97165; 97530; 99152; 99153; 99285; A9500; C1725; C1769; C1874; C1887; C1894; G0378; J0744; J1100; J1170; J1644; J2250; J2370; J2405; J2704; J2710; J2765; J2785; J3010; J3370; J3490; J7030; J7050; Q0163; Q3014; Q9967; S0030

== ENCOUNTER 2022-04-15 14:50 | Inpatient (IN) | payer MEDICARE, OTHER, SELFPAY ==
[2022-04-15] VITALS (9 sets, daily range): BP systolic 109–122; BP diastolic 71–81; PULSE 76–89; RESP 16–20; TEMP 36.6–36.8; O2SAT 96–100
--- NOTE | 2022-04-15 14:58 | XRR_ITS ---
PROCEDURE INFORMATION: Exam: XR Chest Exam date and time: 04/15/2022 3:04 PM Age: 46 years old Clinical indication: Shortness of breath; Additional info: SOB TECHNIQUE: Imaging protocol: Radiologic exam of the chest. Views: 1 view. COMPARISON: CR XR chest 1V [id number] 09/02/2018 4:53 PM FINDINGS: Lungs: Right lower lobe calcified granuloma. Pleural spaces: Unremarkable. No pleural effusion. No pneumothorax. Heart/Mediastinum: Cardiomegaly. Bones/joints: Unremarkable. XR/XR chest 1V portable [id number] IMPRESSION: Cardiomegaly, lungs are clear
--- NOTE | 2022-04-15 14:58 | ECG_ITS ---
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 Measurements Intervals [place] Rate: 89 P: 109 WI: 218 QRS: -11 QRSD: 145 T: 115 QT: 400 QTc: 487 Interpretive Statements SINUS RHYTHM WITH FIRST DEGREE AV BLOCK INTRAVENTRICULAR CONDUCTION DELAY [130+ ms QRS DURATION] Compared to ECG 09/02/2018 20:01:47 First degree AV block now present Intraventricular conduction delay now present Myocardial infarct finding no longer present Electronically Signed On 04-15-2022 19:34:39 CDT by Arjun Marquez M.D. [id number]
--- NOTE | 2022-04-15 15:21 | W.ED.SOB ---
Documented by User: DENISE Vences 04/16/22 00:45 HPI - SOB/Dyspnea General: Chief Complaint: Shortness of Breath/Dyspnea Stated Complaint: SOB; FATIGUE Time Seen by Provider: 04/15/22 15:00 History of Present Illness: HPI Narrative: Patient is a 46-year-old male comes to the ED with shortness of breath. Past medical history of end-stage renal disease and on dialysis, NSTEMI and just had post [id number] amputation of left lower extremity on April 11. Patient was at dialysis clinic today and started developing shortness of breath and some epigastric chest pain. He was then sent here to the ED via EMS. He states that his chest pain is very mild and almost completely resolved. He still feels short of breath. Symptoms started while at rest during dialysis. Denies any fevers, palpitations, nausea/vomiting, abdominal pain, bladder or bowel symptoms. Associated symptoms: Reports chest pain; Deny abdominal pain, fever(s), nausea, orthopnea, palpitations or vomiting Review of Systems Const: Denies: fever(s), chills or fatigue Eyes: Denies: change in vision or eye discomfort ENMT: Denies: throat pain, odynophagia, nasal discharge or nasal congestion Card: Reports: chest pain; Denies: palpitations, edema, swelling of feet/ankles, dyspnea on exertion or orthopnea Resp: Reports: dyspnea; Denies: productive cough or non-productive cough GI: Denies: abdominal pain, nausea, vomiting, diarrhea, constipation or hematochezia : Denies: flank pain, difficulty urinating, dysuria or hematuria Musc: Denies: neck pain, back pain or extremity swelling Skin/Breast: Denies: rash or new lesions Neuro: Denies: headache(s), numbness in extremities or weakness in extremities PFSH ED PFSH: Medical History Cholelithiasis Diabetes mellitus History of non-ST elevation myocardial infarction (NSTEMI) Hypotension Neuropathy Peripheral Vascular Disease Renal failure S/P angiogram of extremity Surgical History History of detached retina repair History of testicular surgery S/P arteriovenous (AV) fistula repair S/P hip arthroscopy S/P LASIK surgery Status post amputation of leg Family History Other Cancer Diabetes Heart disease Hypertension Stroke Social History Smoking and tobacco status: current every day smoker cigarettes Packs smoked per day: 0.5 Physical Exam Const: COMMON NORMALS: patient oriented x3 and alert GENERAL APPEARANCE: cooperative HENMT: COMMON NORMALS: normocephalic HEAD & SCALP: normocephalic MOUTH: Normal oral and palatal mucosa present THROAT: posterior oropharynx normal and uvula midline Neck/C-Spine: COMMON NORMALS: supple GENERAL: Yes normal visual inspection Resp: COMMON NORMALS: normal respiratory effort, No retractions, No use of accessory muscles and clear to auscultation bilaterally AUSCULTATION: clear to auscultation bilaterally Cardio: COMMON NORMALS: regular rate, regular rhythm, S1 normal heart sound present, S2 normal heart sound present, No gallops present (Cardio), No clicks present (Cardio), No murmurs present (Cardio) and Peripheral pulses 2+ throughout RATE: regular rate RHYTHM: regular rhythm HEART SOUNDS: S1 normal heart sound present and S2 normal heart sound present PERIPHERAL PULSES: Peripheral pulses 2+ throughout GI: COMMON NORMALS: Normal to inspection, nondistended, normoactive bowel sounds present, Soft to palpation, non-tender and no masses PALPATION: Yes Soft to palpation : COMMON NORMALS: Yes no CVA tenderness BLADDER/KIDNEY EXAM: Yes no CVA tenderness Back/Pelvis: COMMON NORMALS: no CVA tenderness Extremity: NARRATIVE EXTREMITY EXAM: Right leg below the knee amputation present. Left leg above the knee amputation. Neuro: COMMON NORMALS: patient oriented x3 SENSORIUM/ORIENTATION: Yes alert GAIT: Yes Normal gait present Skin: GENERAL SKIN EXAM: dry skin Course Vital Signs: Vital signs: Vital Signs Temperature 98.0 F 04/20/22 10:13 Pulse Rate 72 04/20/22 10:13 Respiratory Rate 17 04/20/22 10:13 Blood Pressure 106/75 04/20/22 10:13 Pulse Oximetry 99 04/20/22 10:13 Oxygen Delivery Me thod 04/20/22 07:37 Oxygen Flow Rate 2 04/18/22 20:00 MDM - SOB/Dyspnea Lab Data I reviewed the patient's lab results. : 04/19/22 03:41 04/19/22 03:41 Labs/Radiology: Radiology Impressions Chest X-Ray 04/15/22 14:58 IMPRESSION: Cardiomegaly, lungs are clear Chest CTA 04/15/22 16:22 IMPRESSION: 1. Negative for pulmonary embolus. 2. Small right pleural effusion. 3. Cirrhotic liver suspected. 4. Small amount of perihepatic ascites. 5. Cholelithiasis. 6. Scattered prominent mediastinal lymph nodes measuring up to 14 mm, nonspecific. 7. Coronary artery atherosclerotic calcifications. Gallbladder Ultrasound 04/17/22 17:12 IMPRESSION: 1. Cholelithiasis and gallbladder sludge. Consider acute cholecystitis. There is no pericholecystic fluid. No bile duct dilatation. 2. Normal size liver with suspected early changes of cirrhosis. 3. Small atrophic RIGHT kidney. Chronic medical renal disease. Laboratory Results WBC 10.5 10^3/uL (4.0-10.0) H 04/15/22 15:00 RBC 3.84 10^6/uL (4.1-5.3) L 04/15/22 15:00 Hgb 12.6 g/dL (11.7-16.6) 04/15/22 15:00 Hct 38.8 % (42.0-52.0) L 04/15/22 15:00 MCV 101.0 fl (80-94) H 04/15/22 15:00 MCH 32.8 pg (28.0-34.0) 04/15/22 15:00 MCHC 32.5 g/dL (30.0-36.0) 04/15/22 15:00 RDW 15.8 % (12.1-15.1) H 04/15/22 15:00 Plt Count 86 10^3/cmm (130-400) L 04/15/22 15:00 MPV 9.7 fL (7.4-10.4) 04/15/22 15:00 Neut % (Auto) 73.6 % 04/15/22 15:00 Lymph % (Auto) 12.8 % 04/15/22 15:00 Stewart % (Auto) 9.0 % 04/15/22 15:00 Eos % (Auto) 3.2 % 04/15/22 15:00 Baso % (Auto) 0.9 % 04/15/22 15:00 Neut # (Auto) 7.72 10^3/uL (1.8-7.7) H 04/15/22 15:00 Lymph # (Auto) 1.3 10^3/uL (0.8-4.8) 04/15/22 15:00 Stewart # (Auto) 0.9 10^3/uL (0.2-0.9) 04/15/22 15:00 Eos # (Auto) 0.3 10^3/uL (0.0-0.8) 04/15/22 15:00 Baso # (Auto) 0.1 10^3/uL (0.0-0.1) 04/15/22 15:00 Nucleated RBC % (auto) 0 % 04/15/22 15:00 Nucleated RBCs # 0.0 /100WBC 04/15/22 15:00 ESR 55 mm/hr (0-10) H 04/16/22 16:20 D-Dimer 8.61 ug/mIFEU (0-0.59) H 04/15/22 15:48 Sodium 136 mmol/L (136-145) 04/16/22 04:20 Potassium 3.8 mmol/L (3.5-5.1) 04/16/22 04:20 Chloride 92 mmol/L (98-107) L 04/16/22 04:20 Carbon Dioxide 35 mmol/L (22-29) H 04/16/22 04:20 Anion Gap 12.8 (5-19) 04/16/22 04:20 BUN 14 mg/dL (6-20) 04/16/22 04:20 Creatinine 4.1 mg/dL (0.7-1.2) H 04/16/22 04:20 GFR Calculation 15.9 mL/min (90-130) L 04/16/22 04:20 Glucose 109 mg/dL (65-115) 04/16/22 04:20 Calculated Osmolality 283 mOsm/kg (285-295) L 04/16/22 04:20 Calcium 9.1 mg/dL (8.5-10.5) 04/16/22 04:20 Total Bilirubin 0.7 mg/dL (0.15-1.2) 04/16/22 04:20 AST 16 U/L (0-40) 04/16/22 04:20 ALT 8 U/L (0-41) 04/16/22 04:20 Alkaline Phosphatase 80 U/L (40-130) 04/16/22 04:20 Troponin T Baseline 86 ng/L (0-15) H 04/15/22 15:00 Troponin T 120 Minute 86.41 ng/L (0-15) H 04/15/22 17:23 Delta Troponin T 0.41 ABS# (0-10) 04/15/22 17:23 Troponin T Hi Sens 6Hr 86.51 ng/L (0-15) H 04/15/22 20:13 Troponin T Hi Sens 6Hr Delta 0.51 ng/L (0-12) 04/15/22 20:13 C-Reactive Protein 46.9 mg/L (0.0-4.9) H 04/16/22 16:20 NT-Pro-B Natriuret Pep > 87232 pg/mL (0-125) H 04/15/22 15:00 Total Protein 7.2 g/dL (6.6-8.7) 04/16/22 04:20 Albumin 3.1 g/dL (3.5-5.2) L 04/16/22 04:20 Globulin 4.1 g/dL (1.3-4.6) 04/16/22 04:20 Lipase 54 U/L (13-60) 04/15/22 15:00 Procalcitonin 0.65 ng/mL (0-0.5) H 04/16/22 16:20 Hep Bs Antigen Non-reactive (Nonreactive) 04/16/22 04:20 Discharge Plan Discharge Patient Disposition: Admitted As Inpatient Admit Provider: Suly Schneider Clinical Impression: Acute dyspnea, CHF exacerbation Condition: Stable Discharge Diet: Usual diet and Cardiac Discharge Activity: Resume usual activity Sign Out Sign Out Data: Patient Sign Out occurred on 04/15/22 at 19:09. Patient's care was discussed, and care was transferred from to Ruslan Petersen MD. Coding Level of Care Code ED Automatic Die Cutting Machine Operator for Chg Fwd Exam Comprehensive Documented by User: Ruslan Petersen MD 04/21/22 22:23 HPI - SOB/Dyspnea General: Chief Complaint: Shortness of Breath/Dyspnea Stated Complaint: SOB; FATIGUE Time Seen by Provider: 04/15/22 15:00 PFSH ED PFSH: Medical History Cholelithiasis Diabetes mellitus History of non-ST elevation myocardial infarction (NSTEMI) Hypotension Neuropathy Peripheral Vascular Disease Renal failure S/P angiogram of extremity Surgical History History of detached retina repair History of testicular surgery S/P arteriovenous (AV) fistula repair S/P hip arthroscopy S/P LASIK surgery Status post amputation of leg Family History Other Cancer Diabetes Heart disease Hypertension Stroke Social History Smoking and tobacco status: current every day smoker cigarettes Packs smoked per day: 0.5 Course Vital Signs: Vital signs: Vital Signs Temperature 98.0 F 04/20/22 10:13 Pulse Rate 72 04/20/22 10:13 Respiratory Rate 17 04/20/22 10:13 Blood Pressure 106/75 04/20/22 10:13 Pulse Oximetry 99 04/20/22 10:13 Oxygen Delivery Me thod 04/20/22 07:37 Oxygen Flow Rate 2 04/18/22 20:00 MDM - SOB/Dyspnea Medical Decision Making 46-year-old male presenting to emergency room with concerns of dyspnea while getting dialysis. He is hemodynamically stable. Given recent surgery, D-dimer appears to be elevated. CT is negative for any signs of PE. Patient has a creatinine of 2.9. Troponins with delta less than 5. Because patient did not complete dialysis and still continues to have shortness of breath, will admit for dialysis. Disposition: admission Lab Data : 04/19/22 03:41 04/19/22 03:41 Labs/Radiology: Radiology Impressions Chest X-Ray 04/15/22 14:58 IMPRESSION: Cardiomegaly, lungs are clear Chest CTA 04/15/22 16:22 IMPRESSION: 1. Negative for pulmonary embolus. 2. Small right pleural effusion. 3. Cirrhotic liver suspected. 4. Small amount of perihepatic ascites. 5. Cholelithiasis. 6. Scattered prominent mediastinal lymph nodes measuring up to 14 mm, nonspecific. 7. Coronary artery atherosclerotic calcifications. Gallbladder Ultrasound 04/17/22 17:12 IMPRESSION: 1. Cholelithiasis and gallbladder sludge. Consider acute cholecystitis. There is no pericholecystic fluid. No bile duct dilatation. 2. Normal size liver with suspected early changes of cirrhosis. 3. Small atrophic RIGHT kidney. Chronic medical renal disease. Laboratory Results WBC 10.5 10^3/uL (4.0-10.0) H 04/15/22 15:00 RBC 3.84 10^6/uL (4.1-5.3) L 04/15/22 15:00 Hgb 12.6 g/dL (11.7-16.6) 04/15/22 15:00 Hct 38.8 % (42.0-52.0) L 04/15/22 15:00 MCV 101.0 fl (80-94) H 04/15/22 15:00 MCH 32.8 pg (28.0-34.0) 04/15/22 15:00 MCHC 32.5 g/dL (30.0-36.0) 04/15/22 15:00 RDW 15.8 % (12.1-15.1) H 04/15/22 15:00 Plt Count 86 10^3/cmm (130-400) L 04/15/22 15:00 MPV 9.7 fL (7.4-10.4) 04/15/22 15:00 Neut % (Auto) 73.6 % 04/15/22 15:00 Lymph % (Auto) 12.8 % 04/15/22 15:00 Stewart % (Auto) 9.0 % 04/15/22 15:00 Eos % (Auto) 3.2 % 04/15/22 15:00 Baso % (Auto) 0.9 % 04/15/22 15:00 Neut # (Auto) 7.72 10^3/uL (1.8-7.7) H 04/15/22 15:00 Lymph # (Auto) 1.3 10^3/uL (0.8-4.8) 04/15/22 15:00 Stewart # (Auto) 0.9 10^3/uL (0.2-0.9) 04/15/22 15:00 Eos # (Auto) 0.3 10^3/uL (0.0-0.8) 04/15/22 15:00 Baso # (Auto) 0.1 10^3/uL (0.0-0.1) 04/15/22 15:00 Nucleated RBC % (auto) 0 % 04/15/22 15:00 Nucleated RBCs # 0.0 /100WBC 04/15/22 15:00 ESR 55 mm/hr (0-10) H 04/16/22 16:20 D-Dimer 8.61 ug/mIFEU (0-0.59) H 04/15/22 15:48 Sodium 136 mmol/L (136-145) 04/16/22 04:20 Potassium 3.8 mmol/L (3.5-5.1) 04/16/22 04:20 Chloride 92 mmol/L (98-107) L 04/16/22 04:20 Carbon Dioxide 35 mmol/L (22-29) H 04/16/22 04:20 Anion Gap 12.8 (5-19) 04/16/22 04:20 BUN 14 mg/dL (6-20) 04/16/22 04:20 Creatinine 4.1 mg/dL (0.7-1.2) H 04/16/22 04:20 GFR Calculation 15.9 mL/min (90-130) L 04/16/22 04:20 Glucose 109 mg/dL (65-115) 04/16/22 04:20 Calculated Osmolality 283 mOsm/kg (285-295) L 04/16/22 04:20 Calcium 9.1 mg/dL (8.5-10.5) 04/16/22 04:20 Total Bilirubin 0.7 mg/dL (0.15-1.2) 04/16/22 04:20 AST 16 U/L (0-40) 04/16/22 04:20 ALT 8 U/L (0-41) 04/16/22 04:20 Alkaline Phosphatase 80 U/L (40-130) 04/16/22 04:20 Troponin T Baseline 86 ng/L (0-15) H 04/15/22 15:00 Troponin T 120 Minute 86.41 ng/L (0-15) H 04/15/22 17:23 Delta Troponin T 0.41 ABS# (0-10) 04/15/22 17:23 Troponin T Hi Sens 6Hr 86.51 ng/L (0-15) H 04/15/22 20:13 Troponin T Hi Sens 6Hr Delta 0.51 ng/L (0-12) 04/15/22 20:13 C-Reactive Protein 46.9 mg/L (0.0-4.9) H 04/16/22 16:20 NT-Pro-B Natriuret Pep > 51091 pg/mL (0-125) H 04/15/22 15:00 Total Protein 7.2 g/dL (6.6-8.7) 04/16/22 04:20 Albumin 3.1 g/dL (3.5-5.2) L 04/16/22 04:20 Globulin 4.1 g/dL (1.3-4.6) 04/16/22 04:20 Lipase 54 U/L (13-60) 04/15/22 15:00 Procalcitonin 0.65 ng/mL (0-0.5) H 04/16/22 16:20 Hep Bs Antigen Non-reactive (Nonreactive) 04/16/22 04:20 Imaging Data Other Imaging: Radiologist's impression: [address] [address] [address] Scan Report Signed Patient: Neal Otto Unit #: [id number] : 1975 Age/Sex: 46 / M ADM Date: 04/15/22 Loc: ER Room/Bed: Attending Dr: Ordering Provider/Ordering MD: Panchito Hart Date of Service: 04/15/22 Procedure(s): CT angio chest PE protcl [id number] Accession Number(s): [id number] Report Number: [id number] PROCEDURE INFORMATION: Exam: CTA Chest With Contrast Exam date and time: 04/15/2022 5:24 PM Age: 46 years old Clinical indication: Shortness of breath; Additional info: SOB and elevated d-dimer TECHNIQUE: Imaging protocol: Computed tomographic angiography of the chest with contrast. 3D rendering (Not supervised by radiologist): MIP and/or 3D reconstructed images were created by the technologist. Radiation optimization: All CT scans at this facility use at least one of these dose optimization techniques: automated exposure control; mA and/or kV adjustment per patient size (includes targeted exams where dose is matched to clinical indication); or iterative reconstruction. Contrast material: OMNIPAQUE 350; Contrast volume: 80 ml; Contrast route: INTRAVENOUS (IV);? COMPARISON: CT angio chest PE protcl [id number] 05/20/2018 11:06 AM RADIATION DOSE METRICS: Total DLP (mGy-cm): 410.99 FINDINGS: Pulmonary arteries: Normal. No pulmonary emboli. Aorta: Unremarkable. No aortic aneurysm. No aortic dissection. Lungs: Unremarkable. No consolidation. No masses. Pleural spaces: Small right pleural effusion. Heart: Coronary artery atherosclerotic calcifications. Lymph nodes: Scattered prominent mediastinal lymph nodes measuring up to 14 mm, nonspecific. Liver: Cirrhotic liver suspected. Small amount of perihepatic ascites. Gallbladder and bile ducts: Cholelithiasis. Bones/joints: Unremarkable. No acute fracture. Soft tissues: Unremarkable. CT/CT angio chest PE protcl [id number] IMPRESSION: 1. Negative for pulmonary embolus. 2. Small right pleural effusion. 3. Cirrhotic liver suspected. 4. Small amount of perihepatic ascites. 5. Cholelithiasis. 6. Scattered prominent mediastinal lymph nodes measuring up to 14 mm, nonspecific. 7. Coronary artery atherosclerotic calcifications. ? Dictated By: Andrew Su MD Signed By: Andrew Su MD Signed Date/Time: 04/15/22 1800 DD/ [address] [address] XRay Report Signed Patient: Neal Otto Unit #: [id number] : 1975 Age/Sex: 46 / M ADM Date: 04/15/22 Loc: ER Room/Bed: Attending Dr: Ordering Provider/Ordering MD: Panchito Hart Date of Service: 04/15/22 Procedure(s): XR chest 1V portable [id number] Accession Number(s): [id number] Report Number: [id number] PROCEDURE INFORMATION: Exam: XR Chest Exam date and time: 04/15/2022 3:04 PM Age: 46 years old Clinical indication: Shortness of breath; Additional info: SOB TECHNIQUE: Imaging protocol: Radiologic exam of the chest. Views: 1 view. COMPARISON: CR XR chest 1V [id number] 09/02/2018 4:53 PM FINDINGS: Lungs: Right lower lobe calcified granuloma. Pleural spaces: Unremarkable. No pleural effusion. No pneumothorax. Heart/Mediastinum: Cardiomegaly. Bones/joints: Unremarkable. XR/XR chest 1V portable [id number] IMPRESSION: Cardiomegaly, lungs are clear ? Dictated By: Andrew Su MD Signed By: Andrew Su MD Signed Date/Time: 04/15/22 1646 DD/ 1504 Discharge Plan Discharge Patient Disposition: Admitted As Inpatient Admit Provider: Suly Schneider Clinical Impression: Acute dyspnea, CHF exacerbation Condition: Stable Discharge Diet: Usual diet and Cardiac Discharge Activity: Resume usual activity Sign Out Sign Out Data: Patient Sign Out occurred on 04/15/22 at 19:09. Patient's care was discussed, and care was transferred from to Ruslan Petersen MD. Coding Level of Care Code ED Automatic Die Cutting Machine Operator for Chg Fwd Exam Comprehensive
[2022-04-15 15:25] LABS: Basophils # 0.1 10^3/uL (0.0-0.1); Basophils % 0.9 %; Eosinophils # 0.3 10^3/uL (0.0-0.8); Eosinophils % 3.2 %; Hematocrit 38.8 % (42.0-52.0); Hemoglobin 12.6 g/dL (11.7-16.6); Lymphocytes # 1.3 10^3/uL (0.8-4.8); Lymphocytes % 12.8 %; Mean Corpuscular HGB Conc 32.5 g/dL (30.0-36.0); Mean Corpuscular Hemoglobin 32.8 pg (28.0-34.0); Mean Platelet Volume 9.7 fL (7.4-10.4); Monocytes # 0.9 10^3/uL (0.2-0.9); Neutrophils # 7.72 10^3/uL (1.8-7.7); Neutrophils % 73.6 %; Nucleated Red Blood Cells % 0 %; Platelet Count 86 10^3/cmm (130-400); Red Blood Count 3.84 10^6/uL (4.1-5.3); Red Cell Distribution Width 15.8 % (12.1-15.1); White Blood Count 10.5 10^3/uL (4.0-10.0)
[2022-04-15 15:58] LABS: Alanine Aminotransferase 9 U/L (0-41); Albumin Level 3.7 g/dL (3.5-5.2); Alkaline Phosphatase 90 U/L (40-130); Anion Gap 15.5 (5-19); Aspartate Amino Transferase 20 U/L (0-40); Blood Urea Nitrogen 11 mg/dL (6-20); Calcium 9.3 mg/dL (8.5-10.5); Carbon Dioxide 33 mmol/L (22-29); Chloride 91 mmol/L (98-107); Globulin 4.2 g/dL (1.3-4.6); Glomerular Filtration Rate 23.6 mL/min (90-130); Glucose 124 mg/dL (65-115); Lipase 54 U/L (13-60); Osmolality Calculated 283 mOsm/kg (285-295); Potassium 3.5 mmol/L (3.5-5.1); Sodium 136 mmol/L (136-145); Total Bilirubin 1.1 mg/dL (0.15-1.2); Total Protein 7.9 g/dL (6.6-8.7)
[2022-04-15 16:02] LABS: Troponin(5th) Baseline 86 ng/L (0-15)
[2022-04-15 16:14] LABS: D Dimer 8.61 ug/mIFEU (0-0.59)
--- NOTE | 2022-04-15 16:22 | CTR_ITS ---
PROCEDURE INFORMATION: Exam: CTA Chest With Contrast Exam date and time: 04/15/2022 5:24 PM Age: 46 years old Clinical indication: Shortness of breath; Additional info: SOB and elevated d-dimer TECHNIQUE: Imaging protocol: Computed tomographic angiography of the chest with contrast. 3D rendering (Not supervised by radiologist): MIP and/or 3D reconstructed images were created by the technologist. Radiation optimization: All CT scans at this facility use at least one of these dose optimization techniques: automated exposure control; mA and/or kV adjustment per patient size (includes targeted exams where dose is matched to clinical indication); or iterative reconstruction. Contrast material: OMNIPAQUE 350; Contrast volume: 80 ml; Contrast route: INTRAVENOUS (IV); COMPARISON: CT angio chest PE protcl [id number] 05/20/2018 11:06 AM RADIATION DOSE METRICS: Total DLP (mGy-cm): 410.99 FINDINGS: Pulmonary arteries: Normal. No pulmonary emboli. Aorta: Unremarkable. No aortic aneurysm. No aortic dissection. Lungs: Unremarkable. No consolidation. No masses. Pleural spaces: Small right pleural effusion. Heart: Coronary artery atherosclerotic calcifications. Lymph nodes: Scattered prominent mediastinal lymph nodes measuring up to 14 mm, nonspecific. Liver: Cirrhotic liver suspected. Small amount of perihepatic ascites. Gallbladder and bile ducts: Cholelithiasis. Bones/joints: Unremarkable. No acute fracture. Soft tissues: Unremarkable. CT/CT angio chest PE protcl [id number] IMPRESSION: 1. Negative for pulmonary embolus. 2. Small right pleural effusion. 3. Cirrhotic liver suspected. 4. Small amount of perihepatic ascites. 5. Cholelithiasis. 6. Scattered prominent mediastinal lymph nodes measuring up to 14 mm, nonspecific. 7. Coronary artery atherosclerotic calcifications.
[2022-04-15 16:55] LABS: NT Pro B Type Natriuretic Pept > 70000 pg/mL (0-125)
--- NOTE | 2022-04-15 16:58 | ECG_ITS ---
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 Measurements Intervals [place] Rate: 78 P: 51 [place]: 214 QRS: -15 QRSD: 135 T: 115 QT: 421 QTc: 481 Interpretive Statements SINUS RHYTHM WITH FIRST DEGREE AV BLOCK INTRAVENTRICULAR CONDUCTION DELAY [130+ ms QRS DURATION] Compared to ECG 04/15/2022 15:05:04 No significant changes Electronically Signed On 04-15-2022 19:40:55 CDT by Arjun Marquez M.D. [id number]
[2022-04-15 17:44] LABS: Troponin 5 2HR 86.41 ng/L (0-15)
[2022-04-15 17:45] LABS: Troponin 5 2HR Delta 0.41 ABS# (0-10)
--- NOTE | 2022-04-15 19:08 | PC.NURSE ---
THIS NURSE TOOK OVER CARE AT 1900 FROM CHARLA HESS. PATIENT COMFORTABLE IN BED, NO FURTHER NEEDS AT THIS TIME.
[2022-04-15 20:33] LABS: Troponin 5 6HR 86.51 ng/L (0-15)
[2022-04-15 20:36] LABS: Troponin 5 6HR Delta 0.51 ng/L (0-12)
--- NOTE | 2022-04-15 21:33 | ECG_ITS ---
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 Measurements Intervals [place] Rate: 81 P: 54 [place]: 215 QRS: -4 QRSD: 137 T: 119 QT: 415 QTc: 482 Interpretive Statements SINUS RHYTHM WITH FIRST DEGREE AV BLOCK INTRAVENTRICULAR CONDUCTION DELAY [130+ ms QRS DURATION] Compared to ECG 04/15/2022 17:11:07 No significant changes Electronically Signed On 04-16-2022 18:27:32 CDT by Arjun Marquez M.D. [id number]
--- NOTE | 2022-04-15 23:50 | PM.HP ---
Providers/Chief Complaint Admitting Physician: Suly Schneider MD Primary Care Provider: Julius Aguila DO Chief Complaint: SOB; FATIGUE History of Present Illness Neal Otto is a 46 year old male with CKD on HD, PAD s/p amputation of left leg for progressive gangrene on 04/14 presented from outpatient dialysis with c/no not feeling well. He reports that he typically gets HD on Sun/Sun/Sun, while he was in the hospital this past week, his HD schedule was changed to Sun/Sun/Sun. He had HD prior to discharge yesterday(Sun) and then went on his usual schedule today (Sun). Approx 1.5 hrs into HD, he started feeling unwell. He has uneasiness in his chest and felt short of breath. The symptoms resolved shprtly after arrival at ER. He feels back to baseline by time of assessent. Review of Systems General: Reports: 10 or more systems reviewed and unremarkable except in HPI and below Const: Denies: fever(s), chills or body aches Eyes: Denies: change in vision, blurry vision or photophobia ENMT: Reports: hoarseness; Denies: throat pain, enlarged tonsils, odynophagia or nasal congestion Card: Denies: chest pain, palpitations, irregular heart rhythm, edema, swelling of feet/ankles, lightheadedness, pre-syncope, dyspnea on exertion or orthopnea Resp: Denies: dyspnea, productive cough, non-productive cough, wheezing, stridor, pain on inspiration, change in phlegm color, hemoptysis or chest congestion GI: Denies: abdominal pain, nausea, vomiting, hematemesis, coffee ground emesis, dysphagia, heartburn, diarrhea, constipation, GI cramping, change in stool character, hematochezia or melena : Denies: flank pain, dysuria, urinary frequency, urinary urgency, urinary hesitancy or hematuria Musc: Denies: neck pain, back pain, extremity pain, joint swelling, joint warmth or deformity Neuro: Denies: headache(s), numbness in extremities, weakness in extremities, sensory changes, difficulty walking, frequent falls, dizziness, vertigo, behavioral changes, Slurred speech present or seizure-like activity Psych: Denies: anxiety, depression, suicidal ideation or homicidal ideation Endo: Denies: polyuria, polydipsia, tired all the time, cold intolerance or hot flashes Luis/Lymph: Denies: easy bruising or easy bleeding Medications/Allergies Home Medications Medication Instructions Recorded Confirmed Last Taken Type aspirin 81 mg tablet,delayed 81 mg PO BEDTIME 12/03/19 04/11/22 04/06/22 History release (Adult Low Dose Aspirin) vitamin E (dl, acetate) 180 mg 400 unit PO BEDTIME 12/03/19 04/11/22 04/10/22 History (400 unit) capsule midodrine 10 mg tablet 10 mg PO TID #270 tabs 08/18/21 04/11/22 04/11/22 Rx sodium chloride 0.9 % irrigation 1 irrig irrigation DAILY wound 01/30/22 04/07/22 Unknown Rx solution care #500 mL nitroglycerin 0.4 mg sublingual 0.4 mg sublingual Q5M PRN chest 02/14/22 04/07/22 Unknown Rx tablet (Nitrostat) pain #25 tabs sucroferric oxyhydroxide 500 mg 500 mg PO AC 02/14/22 04/11/22 04/10/22 History chewable tablet (Velphoro) clopidogrel 75 mg tablet 75 mg PO BEDTIME 03/28/22 04/11/22 04/06/22 History polyethylene glycol 3350 17 gram 17 g PO DAILY 04/07/22 04/11/22 04/10/22 History oral powder packet (Miralax) acetaminophen 325 mg tablet 650 mg PO Q6H PRN Mild Pain #100 04/14/22 Unknown Rx tabs morphine 15 mg immediate release 15 mg PO 3XD PRN Severe Pain #30 04/14/22 Unknown Rx tablet tabs Allergies Allergy/AdvReac Type Severity Reaction Status Date / Time azithromycin [From Zithromax] Allergy Unknown Unknown Verified 04/05/22 14:05 ceftriaxone Allergy Unknown Unknown Verified 04/05/22 14:05 codeine Allergy Unknown Unknown Verified 04/05/22 14:05 hydrocodone Allergy Unknown Unknown Verified 04/05/22 14:05 Penicillins Allergy Unknown Unknown Verified 04/05/22 14:05 PFSH Acute PFSH: Medical History History of non-ST elevation myocardial infarction (NSTEMI) Hypotension Peripheral Vascular Disease Renal failure Family History Other Cancer Diabetes Heart disease Hypertension Stroke Social History Smoking and tobacco status: current every day smoker cigarettes Packs smoked per day: 0.5 Vitals/I&O/Wt Last Vital Signs Temp 97.9 F 04/15/22 23:41 Pulse 76 04/15/22 23:41 Resp 16 04/15/22 23:41 BP 109/71 04/15/22 23:41 Pulse Ox 96 04/15/22 23:41 O2 Del Method 04/15/22 23:41 O2 Flow Rate 2 04/15/22 20:03 04/15/22 04/15/22 04/16/22 14:59 22:59 06:59 Intake Total 240 / 240 Balance 240 / 240 Weight last 48 hrs Weight 77.564 kg Physical Exam Narrative: General: No acute distress, AO x3 HEENT: PERRLA, pupils bilaterally equal and reactive, pallors not present Chest: Normal vesicular breath sounds, no added sounds, equal good air entry bilaterally CVS: S1-S2 regular, no murmurs, no tachycardia, no gallops, no rubs Abdomen: Soft, nontender, no organomegaly, bowel sounds present Neuro: No focal deficits, no facial deformity, AO x3, power 5/5 in all limbs Extremities: Bilateral lower extremity amputee Data : 04/15/22 15:00 04/16/22 04:20 Other Labs: Radiology Impressions Chest X-Ray 04/15/22 14:58 IMPRESSION: Cardiomegaly, lungs are clear Chest CTA 04/15/22 16:22 IMPRESSION: 1. Negative for pulmonary embolus. 2. Small right pleural effusion. 3. Cirrhotic liver suspected. 4. Small amount of perihepatic ascites. 5. Cholelithiasis. 6. Scattered prominent mediastinal lymph nodes measuring up to 14 mm, nonspecific. 7. Coronary artery atherosclerotic calcifications. Laboratory Results WBC 10.5 10^3/uL (4.0-10.0) H 04/15/22 15:00 RBC 3.84 10^6/uL (4.1-5.3) L 04/15/22 15:00 Hgb 12.6 g/dL (11.7-16.6) 04/15/22 15:00 Hct 38.8 % (42.0-52.0) L 04/15/22 15:00 MCV 101.0 fl (80-94) H 04/15/22 15:00 MCH 32.8 pg (28.0-34.0) 04/15/22 15:00 MCHC 32.5 g/dL (30.0-36.0) 04/15/22 15:00 RDW 15.8 % (12.1-15.1) H 04/15/22 15:00 Plt Count 86 10^3/cmm (130-400) L 04/15/22 15:00 MPV 9.7 fL (7.4-10.4) 04/15/22 15:00 Neut % (Auto) 73.6 % 04/15/22 15:00 Lymph % (Auto) 12.8 % 04/15/22 15:00 [place] % (Auto) 9.0 % 04/15/22 15:00 Eos % (Auto) 3.2 % 04/15/22 15:00 Baso % (Auto) 0.9 % 04/15/22 15:00 Neut # (Auto) 7.72 10^3/uL (1.8-7.7) H 04/15/22 15:00 Lymph # (Auto) 1.3 10^3/uL (0.8-4.8) 04/15/22 15:00 [place] # (Auto) 0.9 10^3/uL (0.2-0.9) 04/15/22 15:00 Eos # (Auto) 0.3 10^3/uL (0.0-0.8) 04/15/22 15:00 Baso # (Auto) 0.1 10^3/uL (0.0-0.1) 04/15/22 15:00 Nucleated RBC % (auto) 0 % 04/15/22 15:00 Nucleated RBCs # 0.0 /100WBC 04/15/22 15:00 D-Dimer 8.61 ug/mIFEU (0-0.59) H 04/15/22 15:48 Sodium 136 mmol/L (136-145) 04/16/22 04:20 Potassium 3.8 mmol/L (3.5-5.1) 04/16/22 04:20 Chloride 92 mmol/L (98-107) L 04/16/22 04:20 Carbon Dioxide 35 mmol/L (22-29) H 04/16/22 04:20 Anion Gap 12.8 (5-19) 04/16/22 04:20 BUN 14 mg/dL (6-20) 04/16/22 04:20 Creatinine 4.1 mg/dL (0.7-1.2) H 04/16/22 04:20 GFR Calculation 15.9 mL/min (90-130) L 04/16/22 04:20 Glucose 109 mg/dL (65-115) 04/16/22 04:20 Calculated Osmolality 283 mOsm/kg (285-295) L 04/16/22 04:20 Calcium 9.1 mg/dL (8.5-10.5) 04/16/22 04:20 Total Bilirubin 0.7 mg/dL (0.15-1.2) 04/16/22 04:20 AST 16 U/L (0-40) 04/16/22 04:20 ALT 8 U/L (0-41) 04/16/22 04:20 Alkaline Phosphatase 80 U/L (40-130) 04/16/22 04:20 Troponin T Baseline 86 ng/L (0-15) H 04/15/22 15:00 Troponin T 120 Minute 86.41 ng/L (0-15) H 04/15/22 17:23 Delta Troponin T 0.41 ABS# (0-10) 04/15/22 17:23 Troponin T Hi Sens 6Hr 86.51 ng/L (0-15) H 04/15/22 20:13 Troponin T Hi Sens 6Hr Delta 0.51 ng/L (0-12) 04/15/22 20:13 NT-Pro-B Natriuret Pep > 60753 pg/mL (0-125) H 04/15/22 15:00 Total Protein 7.2 g/dL (6.6-8.7) 04/16/22 04:20 Albumin 3.1 g/dL (3.5-5.2) L 04/16/22 04:20 Globulin 4.1 g/dL (1.3-4.6) 04/16/22 04:20 Lipase 54 U/L (13-60) 04/15/22 15:00 A&P Assessment and plan (1) Acute dyspnea: (2) ESRD (end stage renal disease): Plan 46-year-old male, bilateral amputee, recent amputation of left lower extremity, ESRD on hemodialysis presented to the emergency room when he felt acutely unwell while on dialysis. He was initially feeling short of breath. Work-up in the ER included a CTA of the chest which was negative for PE, no gross consolidation. EKG without acute ST-T wave changes. Elevated baseline troponin at 86, remained the same at 2 hours and 6 hours without any significant delta. There are no signs of hyperkalemia or other electrolyte abnormalities. Suspect that patient's transient symptoms may have been related to extra dialysis session today. Typically patient gets dialysis on Sunday, however due to his admission over this past week he was getting dialysis on Sunday and Sunday. His next session is due on Sunday. However given that patient has just received contrast for a CTA, will discuss with nephrology if he needs an additional dialysis session. Patient is currently back to baseline. Denies any dyspnea. Saturating 97% on room air. Benign exam overall. No signs of CHF. Attestations Medical Necessity Statement*: Observation admission, discuss with nephrology, potential dialysis prior to discharge. Coding Level of Care Code Acute Supervisor Edging for Meka Fischer Diagnoses Acute dyspnea R06.00 ESRD (end stage renal disease) N18.6
[2022-04-16] MEDS: acetaminophen 325 mg Tablet 650 MG PO ×2 (00:12→15:03)
[2022-04-16 03:11] VITALS: BP 115/78; PULSE 72; RESP 18; TEMP 36.6; O2SAT 98
[2022-04-16 05:45] LABS: Alanine Aminotransferase 8 U/L (0-41); Albumin Level 3.1 g/dL (3.5-5.2); Alkaline Phosphatase 80 U/L (40-130); Anion Gap 12.8 (5-19); Aspartate Amino Transferase 16 U/L (0-40); Blood Urea Nitrogen 14 mg/dL (6-20); Calcium 9.1 mg/dL (8.5-10.5); Carbon Dioxide 35 mmol/L (22-29); Chloride 92 mmol/L (98-107); Globulin 4.1 g/dL (1.3-4.6); Glomerular Filtration Rate 15.9 mL/min (90-130); Glucose 109 mg/dL (65-115); Osmolality Calculated 283 mOsm/kg (285-295); Potassium 3.8 mmol/L (3.5-5.1); Sodium 136 mmol/L (136-145); Total Bilirubin 0.7 mg/dL (0.15-1.2); Total Protein 7.2 g/dL (6.6-8.7)
[2022-04-16 06:00] VITALS: PULSE 71
--- NOTE | 2022-04-16 07:05 | PM.CONSULT ---
Providers/Reason For Consult Consulting Physician/Specialty*: Tamy Valentino DO, telenephrology Reason for Consult*: ESRD Requesting Physician: Suly Schneider MD Attending Physician: Suly Schneider MD Primary Care Provider: Julius Aguila DO History of Present Illness History of Present Illness Neal Otto is a 46 year old male presented to ER for evaluation of dyspnea which occured 1.5h into 4th HD sessiono for the week. also felt chest pressure. s/p BKA last week Had CTA yesterday in ER Review of Systems Narrative: currently denies chest pain, dyspnea Medications/Allergies Home Medications Medication Instructions Recorded Confirmed Last Taken Type aspirin 81 mg tablet,delayed 81 mg PO BEDTIME 12/03/19 04/11/22 04/06/22 History release (Adult Low Dose Aspirin) vitamin E (dl, acetate) 180 mg 400 unit PO BEDTIME 12/03/19 04/11/22 04/10/22 History (400 unit) capsule midodrine 10 mg tablet 10 mg PO TID #270 tabs 08/18/21 04/11/22 04/11/22 Rx sodium chloride 0.9 % irrigation 1 irrig irrigation DAILY wound 01/30/22 04/07/22 Unknown Rx solution care #500 mL nitroglycerin 0.4 mg sublingual 0.4 mg sublingual Q5M PRN chest 02/14/22 04/07/22 Unknown Rx tablet (Nitrostat) pain #25 tabs sucroferric oxyhydroxide 500 mg 500 mg PO AC 02/14/22 04/11/22 04/10/22 History chewable tablet (Velphoro) clopidogrel 75 mg tablet 75 mg PO BEDTIME 03/28/22 04/11/22 04/06/22 History polyethylene glycol 3350 17 gram 17 g PO DAILY 04/07/22 04/11/22 04/10/22 History oral powder packet (Miralax) acetaminophen 325 mg tablet 650 mg PO Q6H PRN Mild Pain #100 04/14/22 Unknown Rx tabs morphine 15 mg immediate release 15 mg PO 3XD PRN Severe Pain #30 04/14/22 Unknown Rx tablet tabs sucroferric oxyhydroxide 500 mg 500 mg PO DIRECTED 04/16/22 04/16/22 Unknown History chewable tablet (Velphoro) Allergies Allergy/AdvReac Type Severity Reaction Status Date / Time azithromycin [From Zithromax] Allergy Unknown Unknown Verified 04/05/22 14:05 ceftriaxone Allergy Unknown Unknown Verified 04/05/22 14:05 codeine Allergy Unknown Unknown Verified 04/05/22 14:05 hydrocodone Allergy Unknown Unknown Verified 04/05/22 14:05 Penicillins Allergy Unknown Unknown Verified 04/05/22 14:05 Current Medications Generic Name Dose Route Start Last Admin Trade Name Freq PRN Reason Stop Dose Admin Acetaminophen 650 mg 04/15/22 23:47 04/16/22 00:12 Acetaminophen 325 Mg Tablet PO 650 mg Q6H PRN Administration Mild/Mod Pain Or Temp >/= 101 PFSH Acute PFSH: Medical History History of non-ST elevation myocardial infarction (NSTEMI) Hypotension Peripheral Vascular Disease Renal failure Family History Other Cancer Diabetes Heart disease Hypertension Stroke Social History Smoking and tobacco status: current every day smoker cigarettes Packs smoked per day: 0.5 Vitals/I&O/Wt Last Vital Signs Temp 97.8 F 04/16/22 03:11 Pulse 71 04/16/22 06:00 Resp 18 04/16/22 03:11 BP 115/78 04/16/22 03:11 Pulse Ox 98 04/16/22 03:11 O2 Del Method 04/16/22 03:11 O2 Flow Rate 2 04/15/22 20:03 04/15/22 04/16/22 04/16/22 22:59 06:59 14:59 Intake Total 240 / 240 360 / 600 Output Total 0 / 0 Balance 240 / 240 360 / 600 Weight last 48 hrs Weight 77.564 kg Physical Exam Const: COMMON NORMALS: no acute distress and alert Extremity: NARRATIVE EXTREMITY EXAM: bilateral lower extremity amputee left forearm AVF + bruising Neuro: SENSORIUM/ORIENTATION: Yes alert Data : 04/15/22 15:00 04/16/22 04:20 Other data: CXR no pulmonary edema, CTA no PE A&P Assessment and plan (1) ESRD (end stage renal disease): seen via telemedicine with assistance of RN at bedside Plan 1. ESRD s/p CTA 2. Dyspnea during HD yesterday, etiology unclear, possibly due to ultrafiltration goal, although he states no fluid was removed 3. s/p BKA 4. Diabetic nephropathy Rec: HD today, 2.5h, UF 1 L, 3K bath. Next HD SundayApril 19 Consult Attestations Medical Necessity Statement: per primary service Time Spent in Patient Care: 16 - 35 minutes Coding Level of Care Code Acute Probation Counselor for [facility] Fwd Diagnoses ESRD (end stage renal disease) N18.6
[2022-04-16 08:00] VITALS: BP 117/69; PULSE 91; RESP 17; TEMP 36.4; O2SAT 95
[2022-04-16] MEDS: polyethylene glycol 3350 Pkt 17 gm PO (08:59)
[2022-04-16] MEDS: midodrine 5 mg TABLET 10 MG PO ×2 (09:02→15:03)
[2022-04-16 11:23] LABS: Hepatitis B Surface Antigen Non-Reactive (Nonreactive)
[2022-04-16 11:53] VITALS: BP 114/76; PULSE 74; RESP 17; TEMP 36.6; O2SAT 99
--- NOTE | 2022-04-16 15:24 | P.PN_ITS ---
Subjective Subjective: Patient was seen this morning, his mother is at bedside, he complains of fatigue and tiredness, he did not receive dialysis this morning, there is plans for dialysis later on today, no fevers, no chills Vitals/I&O/Wt Last Vital Signs Temp 97.8 F 04/16/22 11:53 Pulse 74 04/16/22 11:53 Resp 17 04/16/22 11:53 BP 114/76 04/16/22 11:53 Pulse Ox 99 04/16/22 11:53 O2 Del Method 04/16/22 03:11 O2 Flow Rate 2 04/16/22 08:00 04/16/22 04/16/22 04/16/22 06:59 14:59 22:59 Intake Total 360 / 600 440 / 440 Output Total 0 / 0 Balance 360 / 600 440 / 440 Weight last 48 hrs Weight 77.564 kg Physical Exam Const: COMMON NORMALS: no acute distress and patient oriented x3 Resp: COMMON NORMALS: normal respiratory effort, No retractions, No use of accessory muscles and clear to auscultation bilaterally AUSCULTATION: clear to auscultation bilaterally Cardio: COMMON NORMALS: regular rate, regular rhythm, S1 normal heart sound present and S2 normal heart sound present RATE: regular rate RHYTHM: regular rhythm HEART SOUNDS: S1 normal heart sound present and S2 normal heart sound present GI: COMMON NORMALS: Normal to inspection, nondistended, normoactive bowel sounds present, non-tender and no masses Extremity: NARRATIVE EXTREMITY EXAM: Right below-knee amputation, left knee above-knee amputation, with bandage on top, looks clean and dry Neuro: COMMON NORMALS: patient oriented x3 Psych: COMMON NORMALS: mental status grossly normal Data : 04/15/22 15:00 04/16/22 04:20 A&P Assessment and plan (1) Acute dyspnea: (2) ESRD (end stage renal disease): Plan 46-year-old male, bilateral amputee, recent amputation of left lower extremity, ESRD on hemodialysis presented to the emergency room when he felt acutely unwell while on dialysis. He was initially feeling short of breath. Work-up in the ER included a CTA of the chest which was negative for PE, no gross consolidation. EKG without acute ST-T wave changes. Elevated baseline troponin at 86, remained the same at 2 hours and 6 hours without any significant delta. There are no signs of hyperkalemia or other electrolyte abnormalities. Suspect that patient's transient symptoms may have been related to extra dialysis session today. Typically patient gets dialysis on Sunday, however due to his admission over this past week he was getting dialysis on Sunday and Sunday. His next session is due on Sunday. However given that patient has just received contrast for a CTA, will get dialysis this afternoon Has been telling me that he has not been feeling well with the dialysis session that he received on Sunday, he does better with dialysis as inpatient Patient is currently back to baseline. Denies any dyspnea. Saturating 97% on room air. Benign exam overall. No signs of CHF. Continue inpatient dialysis, monitor hemodynamics closely, monitor for fevers, check for infectious etiologies, potential discharge tomorrow Did had an elevated troponins, no acute ST-T wave changes on EKG, will do cardiac echo Attestations Medical Necessity Statement*: Patient requires hospitalization for fluid overload, weakness after dialysis Coding Level of Care Code Acute Workers Compensation Coordinator for Meka Fischer Diagnoses Acute dyspnea R06.00 ESRD (end stage renal disease) N18.6
--- NOTE | 2022-04-16 15:32 | USCV_ITS ---
Neal Otto Age: 46 Gender: M : 1975 Exam Date: 04/16/2022 21:01 Ordering Phys: Carloz Ortega MD Technologist: Colleen Knowles Exam Location: [facility] – [place] Indication: NSTEMI BP: 114 / 76 HR: 70 Rhythm: Sinus Technical Quality: Technically difficult study MEASUREMENTS (Male / Female) Normal Values 2D ECHO LV Diastolic Diameter PLAX 7.5 cm 4.2 - 5.9 / 3.9 - 5.3 cm LV Systolic Diameter PLAX 5.6 cm LV Chamber Size 4.4 cm IVS Diastolic Thickness 1.0 cm 0.6 - 1.0 / 0.6 - 0.9 cm IVS Systolic Thickness 1.1 cm LVPW Diastolic Thickness 0.7 cm 0.6 - 1.0 / 0.6 - 0.9 cm LVPW Systolic Thickness 1.6 cm RV Chamber Size 4.4 cm LVOT Diameter 2.0 cm LV Ejection Fraction 2D Teich 47.6 % LA Diameter 4.3 cm LA Width 2.8 cm LA Height 4.7 cm RA Width 5.3 cm RA Height 4.4 cm Aorta at Sinotubular Diameter 2.2 cm IVC Diameter 2.7 cm M-MODE Aortic Annulus Diameter 1.4 cm LA Ao Ratio MM 1.7 MV E Point Septal Separation 1.5 cm DOPPLER AV Peak Velocity 126.0 cm/s LVOT Peak Velocity 80.0 cm/s AV Area Cont Eq vti 2.1 cm squared AV Area Cont Eq pk 2.1 cm squared MV Area PHT 5.0 cm squared Mitral E to A Ratio 4.3 MV E' Velocity 70.5 cm/s Mitral E to MV E' Ratio 20.2 Mitral E to LV E' Lateral Ratio 18.8 Mitral E to LV E' Septal Ratio 21.9 TR Peak Velocity 278.4 cm/s TR Peak Gradient 31.0 mmHg TR Mean Velocity 209.0 cm/s TR Mean Gradient 19.5 mmHg TR Velocity Time Integral 95.6 cm TV Peak E Velocity 70.0 cm/s Right Atrial Pressure 15.0 mmHg Pulmonary Artery Systolic Pressu 46.0 mmHg RV Acceleration Time 0.1 s RV Ejection Time 0.3 s RV AcT/ET 0.3 FINDINGS Left Ventricle Moderately dilated LV cavity. Diffuse hypokinesis of the left ventricle. Ejection fraction around 47%.Grade III/IV diastolic dysfunction (restrictive filling pattern), severely elevated filling pressures. Right Ventricle Mildly dilated right ventricle with a slightly diminished ejection fraction Right Atrium Mildly increased right atrial size. Left Atrium Mildly increased left atrial size. Mitral Valve Thickened mitral valve. Moderate mitral annular calcification. Aortic Valve Thickened aortic valve. Tricuspid Valve Mild tricuspid valve regurgitation. Estimated pulmonary artery peak systolic pressure 46 mmHg Pulmonic Valve Mild pulmonary valve regurgitation. Pericardium No pericardial effusion. Aorta Normal ascending aorta dimension. IVC Dilated IVC with decreased respiratory variation. CONCLUSIONS Moderately dilated LV cavity. Diffuse hypokinesis of the left ventricle. Ejection fraction around 47%.Grade III/IV diastolic dysfunction (restrictive filling pattern), severely elevated filling pressures. Mildly dilated right ventricle with a slightly diminished ejection fraction. Mild biatrial enlargement Thickened aortic and mitral valves with a moderate mitral annular calcification Mild tricuspid valve regurgitation. Estimated pulmonary artery peak systolic pressure 46 mmHg. There is no pericardial effusion. There are no intracardiac masses. Compared to the study from a 05/20/2018, the left ventricular ejection fraction has improved Dr Arjun Marquez MD FAC (Electronically Signed) Final Date: 17 April 2022 09:56 S
[2022-04-16 16:31] LABS: Erythrocyte Sedimentation Rate 55 mm/hr (0-10)
[2022-04-16 16:51] LABS: C Reactive Protein 46.9 mg/L (0.0-4.9)
[2022-04-16 16:58] LABS: Procalcitonin 0.65 ng/mL (0-0.5)
[2022-04-16 20:00] VITALS: BP 109/63; PULSE 80; RESP 17; TEMP 36.6; O2SAT 100
[2022-04-16] MEDS: aspirin 81 mg EC Tablet PO (20:34)
[2022-04-16] MEDS: clopidogrel 75 mg Tablet PO (20:34)
[2022-04-16 22:00] VITALS: PULSE 70
[2022-04-17] VITALS (7 sets, daily range): BP systolic 105–114; BP diastolic 71–77; PULSE 67–73; RESP 16–18; TEMP 36.6–36.8; O2SAT 97–100
[2022-04-17 04:17] LABS: Basophils # 0.1 10^3/uL (0.0-0.1); Basophils % 1.3 %; Eosinophils # 0.6 10^3/uL (0.0-0.8); Eosinophils % 7.5 %; Hematocrit 39.8 % (42.0-52.0); Hemoglobin 11.8 g/dL (11.7-16.6); Lymphocytes # 1.5 10^3/uL (0.8-4.8); Lymphocytes % 18.1 %; Mean Corpuscular HGB Conc 29.6 g/dL (30.0-36.0); Mean Corpuscular Hemoglobin 32.3 pg (28.0-34.0); Monocytes # 0.8 10^3/uL (0.2-0.9); Monocytes % 9.3 %; Neutrophils # 5.36 10^3/uL (1.8-7.7); Neutrophils % 63.6 %; Nucleated Red Blood Cells % 0 %; Platelet Count 112 10^3/cmm (130-400); Red Blood Count 3.65 10^6/uL (4.1-5.3); Red Cell Distribution Width 16.2 % (12.1-15.1); White Blood Count 8.4 10^3/uL (4.0-10.0)
[2022-04-17 04:36] LABS: Anion Gap 15.2 (5-19); Blood Urea Nitrogen 11 mg/dL (6-20); C Reactive Protein 39.3 mg/L (0.0-4.9); Calcium 9.4 mg/dL (8.5-10.5); Carbon Dioxide 31 mmol/L (22-29); Chloride 93 mmol/L (98-107); Glucose 127 mg/dL (65-115); Osmolality Calculated 281 mOsm/kg (285-295); Potassium 4.2 mmol/L (3.5-5.1); Sodium 135 mmol/L (136-145)
[2022-04-17 04:42] LABS: Procalcitonin 0.76 ng/mL (0-0.5)
[2022-04-17] MEDS: acetaminophen 325 mg Tablet 650 MG PO ×2 (08:28→21:16)
[2022-04-17] MEDS: midodrine 5 mg TABLET 10 MG PO ×3 (08:28→21:17)
[2022-04-17] MEDS: polyethylene glycol 3350 Pkt 17 gm PO (08:29)
--- NOTE | 2022-04-17 13:33 | PC.CHAP ---
Pastoral Care Encounter/Spiritual Assessment Type of Contact [] Declined taxicab driver visit [] Patient/Family/Request visit [] Outpatient visit [] Follow-up visit [] Physician referral [] Code/Alert [x] Routine visit [] Staff referral [] Actively dying [] Patient sleeping [] Family support [] [] Out of room [] Palliative care [] [] Receiving care in room [] Pre-surgical visit [] Trauma [] Long length of stay [] ICU visit [] Other: Relational/Emotional Strength [x] Patient feels connected with others/family/visitors/staff [] Distress [] Loneliness/isolation [] Abandonment Spirituality of Patient [x] Person of Mabel [x] Attends Druze of their Mabel [x] Believes in Prayer [] Reads Bible or Bahai materials [] There are Spiritual issues to be addressed Can Filler Interventions [x] Prayer [x] Active listening [x] Non-anxious presence [x] Spiritual/emotional support [] Crisis/trauma care [] Spiritual counseling [] Bereavement support [] Provided bereavement packet [] Provided Bible/devotional materials [] Provided toy/stuffed animal, coloring book to patient or family member [] Provided Communion [] Anointing/[place] [] Salvation [x] Completed spiritual assessment [] Other: Impact on Illness or Injury [] Angry [] Fearful [] Anxious [] Often cries [] Exhaustion [] Unable to work [] Unable to attend muslim [] Unable to walk/stand [] Unable to read [] Unable to drive [] Unable to eat/drink [] Unable to sleep [] Unable to be with family [] Patient intubated [] Other: Summary Time spent with patient 10 min
--- NOTE | 2022-04-17 13:42 | P.PN_ITS ---
Subjective Subjective: Seen this morning. Patient sitting up. Has several questions regarding his care today. Echocardiogram today shows EF 47%, grade 3 x 4 diastolic dysfunction, severely elevated filling pressures. Moderately dilated left ventricular cavity with diffuse hypokinesis of left ventricle. Gallbladder ultrasound shows cholelithiasis and gallbladder sludge. Consider acute cholecystitis. There is no pericholecystic fluid and no bile duct dilation present. Early changes of cirrhosis present, small atrophic right kidney Patient continues to complain of epigastric pain and sometimes substernal around lower sternal border sometimes related to food and sometimes happening when he is not eating. Denies shortness of breath or fatigue at this time. Vitals/I&O/Wt Last Vital Signs Temp 98 F 04/17/22 11:29 Pulse 72 04/17/22 11:29 Resp 17 04/17/22 11:29 BP 111/75 04/17/22 11:29 Pulse Ox 98 04/17/22 11:29 O2 Del Method 04/16/22 03:11 O2 Flow Rate 2 04/16/22 08:00 Weight last 48 hrs Weight 77.564 kg Physical Exam Const: COMMON NORMALS: no acute distress and patient oriented x3 Resp: COMMON NORMALS: normal respiratory effort, No retractions, No use of ac cessory muscles and clear to auscultation bilaterally AUSCULTATION: clear to auscultation bilaterally Cardio: COMMON NORMALS: regular rate, regular rhythm, S1 normal heart sound present and S2 normal heart sound present RATE: regular rate RHYTHM: regular rhythm HEART SOUNDS: S1 normal heart sound present and S2 normal heart sound present GI: COMMON NORMALS: Normal to inspection, nondistended, normoactive bowel sounds present, non-tender and no masses Extremity: NARRATIVE EXTREMITY EXAM: Right below-knee amputation, left knee above-knee amputation, with bandage on top, looks clean and dry Patient is going to be seen by wound care shortly for bandage change and reevaluation. I will defer removing bandage for now. Neuro: COMMON NORMALS: patient oriented x3 Psych: COMMON NORMALS: mental status grossly normal Data : 04/17/22 03:35 04/17/22 03:35 Micro: Microbiology 04/16/22 16:15 Blood Culture - Preliminary Blood SPECIMEN COLLECTED 04/16/22 16:20 Blood Culture - Preliminary Blood SPECIMEN COLLECTED A&P Assessment and plan (1) Acute dyspnea: (2) CHF exacerbation: (3) ESRD (end stage renal disease): (4) Status post above-knee amputation of left lower extremity: (5) ESRD (end stage renal disease): (6) Peripheral Vascular Disease: Plan 46-year-old male, bilateral amputee, recent amputation of left lower extremity, ESRD on hemodialysis presented to the emergency room when he felt acutely unwell while on dialysis. He was initially feeling short of breath. Work-up in the ER included a CTA of the chest which was negative for PE, no gross consolidation. EKG without acute ST-T wave changes.? Elevated baseline troponin at 86, remained the same at 2 hours and 6 hours without any significant delta. There are no signs of hyperkalemia or other electrolyte abnormalities. Suspect that patient's transient symptoms may have been related to extra dialysis session today.? Typically patient gets dialysis on Sunday, however due to his admission over this past week he was getting dialysis on Sunday and Sunday. His next session is due on Sunday.? However given that patient has just received contrast for a CTA, will get dialysis this afternoon Has been telling me that he has not been feeling well with the dialysis session that he received on Sunday, he does better with dialysis as inpatient Patient is currently back to baseline.? Denies any dyspnea.? Saturating 97% on room air.? Benign exam overall.? No signs of CHF. Above note is from admission. #Bilateral amputee #Recent amputation left lower extremity [id number], April 11, 2020 #CAD status post PCI w/ GEETHA x3 #ESRD on HD #PAD Work-up ordered reveals cholelithiasis and gallbladder sludge, CRP elevated, ESR elevated slightly. Procalcitonin elevated 0.76. Troponins elevated but flat. No specific acute ST changes on EKG. Echo showed EF 47%, diastolic dysfunction, LV hypokinesis. Consult general surgery Consult cardiology Wound care to see patient today. Continue home medications. Attestations Medical Necessity Statement*: possible dc in 24-48 hours Coding Level of Care Code Acute Health Education Director for [facility] Fwd Exam Detailed Diagnoses Acute dyspnea R06.00 CHF exacerbation I50.9 ESRD (end stage renal disease) N18.6 Status post above-knee amputation of left lower extremity Z89.612 ESRD (end stage renal disease) N18.6 Peripheral Vascular Disease I73.9
--- NOTE | 2022-04-17 16:48 | PM.CONSULT ---
Providers/Reason For Consult Consulting Physician/Specialty*: Dex Johnson MD/ Cardiology Reason for Consult*: Chest pain Requesting Physician: Dr Turner Attending Physician: Destinee Turner MD Primary Care Provider: Julius Aguila DO History of Present Illness History of Present Illness Neal Otto is a 46 year old male with past medical history of coronary artery disease, peripheral artery disease with bilateral extremity amputations, end-stage renal disease on dialysis presented to the hospital from dialysis session when he started feeling weak with discomfort in the epigastrium radiating to the chest. Troponins are elevated however did not per trend up. EKG did not show significant ischemic changes. Echo shows mildly reduced LV systolic function with EF of 47%. It is improved from before. Review of Systems General: Reports: 10 or more systems reviewed and unremarkable except in HPI and below Const: Denies: fever(s), chills or body aches Eyes: Denies: change in vision, blurry vision or photophobia ENMT: Reports: hoarseness; Denies: throat pain, enlarged tonsils, odynophagia or nasal congestion Card: Denies: chest pain, palpitations, irregular heart rhythm, edema, swelling of feet/ankles, lightheadedness, pre-syncope, dyspnea on exertion or orthopnea Resp: Denies: dyspnea, productive cough, non-productive cough, wheezing, stridor, pain on inspiration, change in phlegm color, hemoptysis or chest congestion GI: Denies: abdominal pain, nausea, vomiting, hematemesis, coffee ground emesis, dysphagia, heartburn, diarrhea, constipation, GI cramping, change in stool character, hematochezia or melena : Denies: flank pain, dysuria, urinary frequency, urinary urgency, urinary hesitancy or hematuria Musc: Denies: neck pain, back pain, extremity pain, joint swelling, joint warmth or deformity Neuro: Denies: headache(s), numbness in extremities, weakness in extremities, sensory changes, difficulty walking, frequent falls, dizziness, vertigo, behavioral changes, Slurred speech present or seizure-like activity Psych: Denies: anxiety, depression, suicidal ideation or homicidal ideation Endo: Denies: polyuria, polydipsia, tired all the time, cold intolerance or hot flashes Luis/Lymph: Denies: easy bruising or easy bleeding Medications/Allergies Home Medications Medication Instructions Recorded Confirmed Last Taken Type aspirin 81 mg tablet,delayed 81 mg PO BEDTIME 12/03/19 04/16/22 04/06/22 History release (Adult Low Dose Aspirin) vitamin E (dl, acetate) 180 mg 400 unit PO BEDTIME 12/03/19 04/16/22 04/10/22 History (400 unit) capsule midodrine 10 mg tablet 10 mg PO TID #270 tabs 08/18/21 04/16/22 04/11/22 Rx nitroglycerin 0.4 mg sublingual 0.4 mg sublingual Q5M PRN chest 02/14/22 04/16/22 Unknown Rx tablet (Nitrostat) pain #25 tabs sucroferric oxyhydroxide 500 mg 500 mg PO TIDWM 02/14/22 04/16/22 04/10/22 History chewable tablet (Velphoro) clopidogrel 75 mg tablet 75 mg PO BEDTIME 03/28/22 04/16/22 04/06/22 History polyethylene glycol 3350 17 gram 17 g PO DAILY 04/07/22 04/16/22 04/10/22 History oral powder packet (Miralax) acetaminophen 325 mg tablet 650 mg PO Q6H PRN Mild Pain #100 04/14/22 04/16/22 Unknown Rx tabs morphine 15 mg immediate release 15 mg PO 3XD PRN Severe Pain #30 04/14/22 04/16/22 Unknown Rx tablet tabs Allergies Allergy/AdvReac Type Severity Reaction Status Date / Time azithromycin [From Zithromax] Allergy Unknown Unknown Verified 04/05/22 14:05 ceftriaxone Allergy Unknown Unknown Verified 04/05/22 14:05 codeine Allergy Unknown Unknown Verified 04/05/22 14:05 hydrocodone Allergy Unknown Unknown Verified 04/05/22 14:05 Penicillins Allergy Unknown Unknown Verified 04/05/22 14:05 Current Medications Generic Name Dose Route Start Last Admin Trade Name Freq PRN Reason Stop Dose Admin Acetaminophen 650 mg 04/15/22 23:47 04/17/22 08:28 Acetaminophen 325 Mg Tablet PO 650 mg Q6H PRN Administration Mild/Mod Pain Or Temp >/= 101 Aspirin 81 mg 04/16/22 21:00 04/16/22 20:34 Aspirin 81 Mg Ec Tablet PO 81 mg BEDTIME CHANEL Administration Clopidogrel Bisulfate 75 mg 04/16/22 21:00 04/16/22 20:34 Clopidogrel 75 Mg Tablet PO 75 mg BEDTIME CHANEL Administration Heparin Sodium (Porcine) 5,000 unit 04/16/22 16:00 04/17/22 16:36 Heparin 5,000 Unit/Ml Inj 1 Ml SUBCUT Not Given Q12H CHANEL Midodrine 10 mg 04/16/22 09:00 04/17/22 16:35 Midodrine 5 Mg Tablet PO 10 mg TID CHANEL Administration Non-Formulary 0 each 04/16/22 12:30 04/17/22 13:16 Medication - PO Not Given Velphoro ( TIDWM CHANEL Sucroferric Oxyhydroxide) 500 Mg Tablets Polyethylene Glycol 17 gm 04/16/22 09:00 04/17/22 08:29 Polyethylene Glycol 3350 Pkt 17 Gm PO 17 gm DAILY CHANEL Administration PFSH Acute PFSH: Medical History Cholelithiasis Diabetes mellitus History of non-ST elevation myocardial infarction (NSTEMI) Hypotension Neuropathy Peripheral Vascular Disease Renal failure S/P angiogram of extremity Surgical History History of detached retina repair History of testicular surgery S/P arteriovenous (AV) fistula repair S/P hip arthroscopy S/P LASIK surgery Status post amputation of leg Family History Other Cancer Diabetes Heart disease Hypertension Stroke Social History Smoking and tobacco status: current every day smoker cigarettes Packs smoked per day: 0.5 Vitals/I&O/Wt Last Vital Signs Temp 98.1 F 04/17/22 16:00 Pulse 71 04/17/22 16:00 Resp 16 04/17/22 16:00 BP 106/71 04/17/22 16:00 Pulse Ox 100 04/17/22 16:00 O2 Del Method 04/16/22 03:11 O2 Flow Rate 2 04/16/22 08:00 04/17/22 04/17/22 04/17/22 06:59 14:59 22:59 Intake Total 260 / 260 Balance 260 / 260 Physical Exam Narrative: GENERAL: Patient is alert, awake and oriented x3. [] NECK: No jugular vein distension. [] HEENT: No cyanosis. No icterus. No pallor. [] HEART: Regular S1 and S2. No murmur, rub or gallop. [] LUNGS: Clear to auscultate bilaterally. [] ABDOMEN: Soft CENTRAL NERVOUS SYSTEM: Grossly nonfocal. [] EXTREMITIES: Bilateral lower extremity amputations Data : 04/18/22 04:10 04/18/22 04:10 Micro: Microbiology 04/16/22 16:20 Blood Culture - Preliminary Blood NEGATIVE TO DATE 04/16/22 16:15 Blood Culture - Preliminary Blood NEGATIVE TO DATE A&P Assessment and plan (1) ESRD (end stage renal disease): (2) Peripheral Vascular Disease: (3) Chest pain: Plan Patient junior has chest discomfort episodes. Symptoms are atypical. Also found to have thickening of gallbladder. General surgery will evaluate patient. Will recommend stress test to rule out significant ischemia. If significant ischemia is found, we can discuss coronary angiogram with possible percutaneous clinic intervention. Continue current medications. Continue aspirin and Plavix Thank you for involving us with care of this patient. We will continue to follow. Please call with questions. Consult Attestations Medical Necessity Statement: Care expected to cross 2 midnights. Coding Level of Care Code Acute Separations Scientist for [facility] Diagnoses ESRD (end stage renal disease) N18.6 Peripheral Vascular Disease I73.9 Chest pain R07.9
--- NOTE | 2022-04-17 17:12 | US_ITS ---
WS: [id number] RIGHT UPPER QUADRANT ULTRASOUND HISTORY: cholelithiasis COMPARISON: 09/02/2018 and 05/20/2018 Liver: 15.0 cm in length. Normal size liver. No mass or intrahepatic duct dilatation. The surface of the liver is becoming slightly irregular and nodular. Portal Vein: Normal hepatopetal flow with monophasic waveform. Gallbladder: Normally distended gallbladder with sludge and small dependent mobile stones. Gallbladde r wall is top normal size measuring up to 3 mm. No pericholecystic fluid. CBD: 0.4 cm Pancreas: Normal size and echogenicity. Right kidney: 10.2 cm in length. Kidney is normal in size but there is diffuse cortical thinning and increased echogenicity. Poor cortical medullary differentiation. Aorta and IVC: Unremarkable abdominal aorta and IVC. No ascites. There is a small RIGHT pleural effusion. US/US gall bladder [id number] IMPRESSION: 1. Cholelithiasis and gallbladder sludge. Consider acute cholecystitis. There is no pericholecystic fluid. No bile duct dilatation. 2. Normal size liver with suspected early changes of cirrhosis. 3. Small atrophic RIGHT kidney. Chronic medical renal disease.
[2022-04-17] MEDS: clopidogrel 75 mg Tablet PO (21:17)
[2022-04-17] MEDS: metroNIDAZOLE IV 500 MG/100 ML PREMIX 100 MG IV (23:48)
[2022-04-17] MEDS: ciprofloxacin 400 MG/200 ML PREMIX 200 MG IV (23:49)
--- NOTE | 2022-04-18 | ECG_ITS ---
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 Interpretive Statements NAME OF STUDY: LEXISCAN SESTAMIBI STRESS TEST INDICATION: Chest Pain PROCEDURE: At the baseline, the EKG revealed sinus rhythm with a first-degree AV block and left bundle branch block. The baseline heart was 69 bpm with a blood pressue of 103/70 mm of Hg Lexiscan was infused over a period of 20 seconds. A total of 0.4 milligrams of Lexiscan was infused. The stress phase was continued for a total of 5 minutes. Heart rate at the end of the stress phase was 77 bpm with a blood pressure 100/65 mm of Hg. The EKG at the peak infusion revealed no significant changes. Sestamibi was injected 20 seconds after the Lexiscan infusion. Heart rate at the end of the recovery phase was 86 bpm with a blood pressure of 104/74 mm of Hg. CONCLUSION: 1. No significant EKG changes with the LexiScan infusion 2. No LexiScan induced chest pain or cardiac arrhythmia 3. Normal blood pressure and heart rate response 4. Sestamibi/sestamibi perfusion scan pending; see separate report. Electronically Signed On 04-21-2022 16:13:34 CDT by Arjun Marquez M.D. [email or web address]
[2022-04-18 04:00] VITALS: BP 120/81; PULSE 63; RESP 15; TEMP 36.4; O2SAT 98
[2022-04-18 05:16] LABS: Basophils # 0.1 10^3/uL (0.0-0.1); Basophils % 1.3 %; Eosinophils # 0.7 10^3/uL (0.0-0.8); Eosinophils % 7.5 %; Hematocrit 41.2 % (42.0-52.0); Hemoglobin 12.2 g/dL (11.7-16.6); Lymphocytes # 2.5 10^3/uL (0.8-4.8); Lymphocytes % 26.3 %; Mean Corpuscular HGB Conc 29.6 g/dL (30.0-36.0); Mean Corpuscular Hemoglobin 32.2 pg (28.0-34.0); Mean Corpuscular Volume 108.7 fl (80-94); Mean Platelet Volume 10.1 fL (7.4-10.4); Monocytes # 0.9 10^3/uL (0.2-0.9); Monocytes % 9.6 %; Neutrophils # 5.16 10^3/uL (1.8-7.7); Neutrophils % 54.9 %; Nucleated Red Blood Cells % 0 %; Platelet Count 126 10^3/cmm (130-400); Red Blood Count 3.79 10^6/uL (4.1-5.3); Red Cell Distribution Width 16.2 % (12.1-15.1); White Blood Count 9.4 10^3/uL (4.0-10.0)
[2022-04-18 05:39] LABS: Anion Gap 17.5 (5-19); Blood Urea Nitrogen 19 mg/dL (6-20); Calcium 9.6 mg/dL (8.5-10.5); Carbon Dioxide 29 mmol/L (22-29); Chloride 89 mmol/L (98-107); Glomerular Filtration Rate 12.6 mL/min (90-130); Glucose 94 mg/dL (65-115); Osmolality Calculated 274 mOsm/kg (285-295); Potassium 4.5 mmol/L (3.5-5.1); Sodium 131 mmol/L (136-145)
[2022-04-18] MEDS: ciprofloxacin 400 MG/200 ML PREMIX 200 MG IV (06:06)
[2022-04-18] MEDS: metroNIDAZOLE IV 500 MG/100 ML PREMIX 100 MG IV (06:07)
[2022-04-18 08:00] VITALS: BP 120/83; PULSE 67; RESP 15; TEMP 36.6; O2SAT 97
[2022-04-18] MEDS: midodrine 5 mg TABLET 10 MG PO ×2 (08:40→13:15)
[2022-04-18] MEDS: polyethylene glycol 3350 Pkt 17 gm PO (08:41)
[2022-04-18] MEDS: acetaminophen 325 mg Tablet 650 MG PO (08:42)
--- NOTE | 2022-04-18 08:47 | NMCV_ITS ---
NM meenakshi perf SPECT r/s* [id number] Neal Otto Age: 46 Gender: M : 1975 Exam Date: 04/18/2022 10:45 Ordering Phys: Destinee Turner MD Technologist: KANDICE Hurst Exam Location: [facility] [address] Indications: CHEST PAIN STRESS TEST Please see separate stress test report in [facility] for full findings IMAGE PROTOCOL Rest/Stress 1 Lexiscan Day Radiopharmaceutical Dose (mCi) Administration Site Administered by Rest: Tc-99m 11.0 IV KANDICE Alva Sestamibi Stress:Tc-99m 32.7 IV KANDICE Alva Sestamibi Rest: 18-Apr-2022 60 Discovery 630 Stress: 18-Apr-2022 30 Discovery 630 0.4mg Lexiscan. Supine position only as patient was unable to lay prone. SPECT RESULTS Technical Quality: Excellent Raw Data Analysis: Normal Image Corrections: No attenuation or motion correction applied Summed Stress Score: 28 Summed Rest Score: 28 Summed Difference Score: 2 PERFUSION FINDINGS There is large sized, fixed perfusion defect noted in the anterior and apical wall. This is consistent with prior infarct in LAD territory. There is large sized, partially reversible perfusion defect noted in inferolateral and inferior hernandez consistent with prior infarcts in the RCA and LCx territories with thor-infarct ischemia. FUNCTIONAL RESULTS (calculated via Gated SPECT) Stress Image LV EF (%): 25 Stress EDV (mL):228 TID: 0.91 Stress ESV (mL):171 FUNCTIONAL FINDINGS: LV systolic function is severely reduced. Severe global hypokinesis. IMPRESSIONS 1. Abnormal myocardial perfusion imaging with large sized prior infarct noted in the LAD territory. There is large sized infarcts with thor-infarct ischemia noted in the RCA and Left circumflex artery territory. 2. LV systolic function is severely reduced. Dex Johnson MD (Electronically Signed) Final Date: 18 April 2022 13:11 S
--- NOTE | 2022-04-18 08:54 | PM.CONSULT ---
Providers/Reason For Consult Consulting Physician/Specialty*: Dr. Mazin Wetzel, /General surgery Reason for Consult*: Epigastric pain Attending Physician: Destinee Turner MD Primary Care Provider: Julius Aguila DO History of Present Illness History of Present Illness Neal Otto is a 46 year old male who recently underwent a left below-knee amputation last week. He is a hemodialysis patient. He got hemodialysis on 04/14 and then again on 04/15. During dialysis on 04/15, he developed transient epigastric pain. He believes this is due to too much fluid being pulled off of him too quickly, especially since he weighs less after his below-knee amputation. The pain went away when they turned off hemodialysis. The pain was dull and in the epigastrium. The pain did not radiate. He he denies any emesis. He does report that he has been nauseous ever since starting antibiotics. He denies any pain with eating. He did have an ultrasound of the gallbladder which shows cholelithiasis. He denies any heartburn. Review of Systems General: Reports: 10 or more systems reviewed and unremarkable except in HPI and below Medications/Allergies Home Medications Medication Instructions Recorded Confirmed Last Taken Type aspirin 81 mg tablet,delayed 81 mg PO BEDTIME 12/03/19 04/16/22 04/06/22 History release (Adult Low Dose Aspirin) vitamin E (dl, acetate) 180 mg 400 unit PO BEDTIME 12/03/19 04/16/22 04/10/22 History (400 unit) capsule midodrine 10 mg tablet 10 mg PO TID #270 tabs 08/18/21 04/16/22 04/11/22 Rx nitroglycerin 0.4 mg sublingual 0.4 mg sublingual Q5M PRN chest 02/14/22 04/16/22 Unknown Rx tablet (Nitrostat) pain #25 tabs sucroferric oxyhydroxide 500 mg 500 mg PO TIDWM 02/14/22 04/16/22 04/10/22 History chewable tablet (Velphoro) clopidogrel 75 mg tablet 75 mg PO BEDTIME 03/28/22 04/16/22 04/06/22 History polyethylene glycol 3350 17 gram 17 g PO DAILY 04/07/22 04/16/22 04/10/22 History oral powder packet (Miralax) acetaminophen 325 mg tablet 650 mg PO Q6H PRN Mild Pain #100 04/14/22 04/16/22 Unknown Rx tabs morphine 15 mg immediate release 15 mg PO 3XD PRN Severe Pain #30 04/14/22 04/16/22 Unknown Rx tablet tabs Allergies Allergy/AdvReac Type Severity Reaction Status Date / Time azithromycin [From Zithromax] Allergy Unknown Unknown Verified 04/05/22 14:05 ceftriaxone Allergy Unknown Unknown Verified 04/05/22 14:05 codeine Allergy Unknown Unknown Verified 04/05/22 14:05 hydrocodone Allergy Unknown Unknown Verified 04/05/22 14:05 Penicillins Allergy Unknown Unknown Verified 04/05/22 14:05 Current Medications Generic Name Dose Route Start Last Admin Trade Name Freq PRN Reason Stop Dose Admin Acetaminophen 650 mg 04/15/22 23:47 04/18/22 08:42 Acetaminophen 325 Mg Tablet PO 650 mg Q6H PRN Administration Mild/Mod Pain Or Temp >/= 101 Aspirin 81 mg 04/16/22 21:00 04/17/22 21:18 Aspirin 81 Mg Ec Tablet PO Not Given BEDTIME CHANEL Clopidogrel Bisulfate 75 mg 04/16/22 21:00 04/17/22 21:17 Clopidogrel 75 Mg Tablet PO 75 mg BEDTIME CHANEL Administration Heparin Sodium (Porcine) 5,000 unit 04/16/22 16:00 04/18/22 03:17 Heparin 5,000 Unit/Ml Inj 1 Ml SUBCUT Not Given Q12H CHANEL Ciprofloxacin/Dextrose 400 mg in 200 mls @ 200 mls/hr 04/17/22 21:30 04/18/22 07:06 Cipro IV Infused Q8H CHANEL Infusion Protocol Metronidazole 500 mg in 100 mls @ 100 mls/hr 04/17/22 21:30 04/18/22 07:07 Flagyl Iv IV Infused Q8H [facility] Infusion Protocol Midodrine 10 mg 04/16/22 09:00 04/18/22 08:40 Midodrine 5 Mg Tablet PO 10 mg TID CHANEL Administration Non-Formulary 0 each 04/16/22 12:30 04/18/22 08:40 Medication - PO 1.5 each Velphoro ( TIDWM CHANEL Administration Sucroferric Oxyhydroxide) 500 Mg Tablets Polyethylene Glycol 17 gm 04/16/22 09:00 04/18/22 08:41 Polyethylene Glycol 3350 Pkt 17 Gm PO 17 gm DAILY CHANEL Administration PFSH Acute PFSH: Medical History (Updated 04/18/22 @ 08:59 by Mazin Wetzel DO) Cholelithiasis Diabetes mellitus History of non-ST elevation myocardial infarction (NSTEMI) Hypotension Neuropathy Peripheral Vascular Disease Renal failure S/P angiogram of extremity Surgical History (Updated 04/18/22 @ 08:57 by Mazin Wetzel DO) History of detached retina repair History of testicular surgery S/P arteriovenous (AV) fistula repair S/P hip arthroscopy S/P LASIK surgery Status post amputation of leg Family History Other Cancer Diabetes Heart disease Hypertension Stroke Social History Smoking and tobacco status: current every day smoker cigarettes Packs smoked per day: 0.5 Vitals/I&O/Wt Last Vital Signs Temp 97.8 F 04/18/22 08:00 Pulse 67 04/18/22 08:00 Resp 15 04/18/22 08:00 BP 120/83 04/18/22 08:00 Pulse Ox 97 04/18/22 08:00 O2 Del Method 04/18/22 08:00 O2 Flow Rate 2 04/16/22 08:00 04/17/22 04/18/22 04/18/22 22:59 06:59 14:59 Intake Total 240 / 500 300 / 800 300 / 300 Output Total 0 / 0 Balance 240 / 500 300 / 800 300 / 300 Physical Exam Narrative: General : Patient is well developed , no acute distress, oriented x3 Head : Normal cephalic, a-traumatic. Ears : Pinnae and external canal are normal. Hearing is normal. Eyes : He has blind in his left eye. Nose : Mucous membranes are without erythema. Throat : buccal mucosa is normal, gums are without significant recession or hypertrophy. Lungs : Equal chest rise bilaterally, no use of accessory muscles, trachea is midline. Cor : Rate and rhythm are normal. Abdomen : Soft, ND, NT, no g/r/m Extremities : No edema, he is status post bilateral below-knee amputations. Bandage on left BKA is clean dry and intact Back : non-tender to palpation, no CVA tenderness. Neuro : CN II - XII intact, Upper and lower extremities have equal and full strength Data : 04/18/22 04:10 04/18/22 04:10 Micro: Microbiology 04/16/22 16:20 Blood Culture - Preliminary Blood NEGATIVE TO DATE 04/16/22 16:15 Blood Culture - Preliminary Blood NEGATIVE TO DATE A&P Assessment and plan (1) Cholelithiasis: Plan Is epigastric tenderness only lasted a short while during hemodialysis on Sunday. His symptoms have resolved and he denies any symptoms prior to this. He seems to be asymptomatic related to his gallbladder. No acute surgical intervention Medical management per hospitalist I explained to him that if he does develop any abdominal pain, especially related to food intake, that he should come see me in my office. Coding Level of Care Code Acute Clinical Project Coordinator for [facility] Diagnoses Cholelithiasis K80.20
[2022-04-18] MEDS: metoclopramide 5 mg/mL SDV 2 mL IVP ×2 (09:50→17:32)
[2022-04-18] MEDS: regadenoson 0.4 Mg/5 ml Syringe IVP (11:35)
--- NOTE | 2022-04-18 11:42 | P.PN_ITS ---
Subjective Subjective: Patient has more episodes of chest discomfort. Stress test shows prior infarct in LAD territory and infarct with thor-infarct ischemia in RCA and LCx territories. Vitals/I&O/Wt Last Vital Signs Temp 97.8 F 04/18/22 08:00 Pulse 67 04/18/22 08:00 Resp 15 04/18/22 08:00 BP 120/83 04/18/22 08:00 Pulse Ox 97 04/18/22 08:00 O2 Del Method 04/18/22 08:00 O2 Flow Rate 2 04/16/22 08:00 04/17/22 04/18/22 04/18/22 22:59 06:59 14:59 Intake Total 240 / 500 300 / 800 780 / 780 Output Total 0 / 0 Balance 240 / 500 300 / 800 780 / 780 Physical Exam Narrative: GENERAL: Patient is alert, awake and oriented x3. [] NECK: No jugular vein distension. [] HEENT: No cyanosis. No icterus. No pallor. [] HEART: Regular S1 and S2. No murmur, rub or gallop. [] LUNGS: Clear to auscultate bilaterally. [] ABDOMEN: Soft CENTRAL NERVOUS SYSTEM: Grossly nonfocal. [] EXTREMITIES: Bilateral lower extremity amputations Data : 04/19/22 03:41 04/19/22 03:41 Micro: Microbiology 04/16/22 16:20 Blood Culture - Preliminary Blood NEGATIVE TO DATE 04/16/22 16:15 Blood Culture - Preliminary Blood NEGATIVE TO DATE A&P Assessment and plan (1) ESRD (end stage renal disease): (2) Peripheral Vascular Disease: (3) Chest pain: Plan Given patient's ongoing on and off chest discomfort episodes and stress test showing infarct with thor-infarct ischemia in LCx and RCA territory, we will pro ceed with coronary angiogram tomorrow. Keep n.p.o. past midnight. Continue aspirin and Plavix Thank you for involving us with care of this patient. We will continue to follow. Please call with questions. Attestations Medical Necessity Statement*: Care expected to cross 2 midnights. Coding Level of Care Code Acute Commercial Energy Rater for [facility] Fwd Diagnoses ESRD (end stage renal disease) N18.6 Peripheral Vascular Disease I73.9 Chest pain R07.9
[2022-04-18 11:44] VITALS: BP 103/67; PULSE 83
--- NOTE | 2022-04-18 13:56 | PM.PN ---
Subjective Subjective: seen this AM. no acute events overnight. went for stress test today seen in dialysis cardio to see pt and discuss further plan. pt aware pt not experieincing any chest pain but does endorse shortness of breath at times Vitals/I&O/Wt Last Vital Signs Temp 97.8 F 04/18/22 08:00 Pulse 83 04/18/22 11:44 Resp 15 04/18/22 08:00 BP 103/67 04/18/22 11:44 Pulse Ox 97 04/18/22 08:00 O2 Del Method 04/18/22 08:00 O2 Flow Rate 2 04/16/22 08:00 04/17/22 04/18/22 04/18/22 22:59 06:59 14:59 Intake Total 240 / 500 300 / 800 780 / 780 Output Total 0 / 0 Balance 240 / 500 300 / 800 780 / 780 Physical Exam Const: COMMON NORMALS: no acute distress and patient oriented x3 Resp: COMMON NORMALS: normal respiratory effort, No retractions, No use of accessory muscles and clear to auscultation bilaterally AUSCULTATION: clear to auscultation bilaterally Cardio: COMMON NORMALS: regular rate, regular rhythm, S1 normal heart sound present and S2 normal heart sound present RATE: regular rate RHYTHM: regular rhythm HEART SOUNDS: S1 normal heart sound present and S2 normal heart sound present GI: COMMON NORMALS: Normal to inspection, nondistended, normoactive bowel sounds present, non-tender and no masses Extremity: NARRATIVE EXTREMITY EXAM: Right below-knee amputation, left knee above-knee amputation, with bandage on top, looks clean and dry Neuro: COMMON NORMALS: patient oriented x3 Psych: COMMON NORMALS: mental status grossly normal Data : 04/18/22 04:10 04/18/22 04:10 Micro: Microbiology 04/16/22 16:20 Blood Culture - Preliminary Blood NEGATIVE TO DATE 04/16/22 16:15 Blood Culture - Preliminary Blood NEGATIVE TO DATE A&P Assessment and plan (1) Acute dyspnea: (2) CHF exacerbation: (3) ESRD (end stage renal disease): (4) Status post above-knee amputation of left lower extremity: (5) ESRD (end stage renal disease): (6) Peripheral Vascular Disease: Plan 46-year-old male, bilateral amputee, recent amputation of left lower extremity, ESRD on hemodialysis presented to the emergency room when he felt acutely unwell while on dialysis. He was initially feeling short of breath. Work-up in the ER included a CTA of the chest which was negative for PE, no gross consolidation. EKG without acute ST-T wave changes.? Elevated baseline troponin at 86, remained the same at 2 hours and 6 hours without any significant delta. There are no signs of hyperkalemia or other electrolyte abnormalities. Suspect that patient's transient symptoms may have been related to extra dialysis session today.? Typically patient gets dialysis on Sunday, however due to his admission over this past week he was getting dialysis on Sunday and Sunday. His next session is due on Sunday.? However given that patient has just received contrast for a CTA, will get dialysis this afternoon Has been telling me that he has not been feeling well with the dialysis session that he received on Sunday, he does better with dialysis as inpatient Patient is currently back to baseline.? Denies any dyspnea.? Saturating 97% on room air.? Benign exam overall.? No signs of CHF. Above note is from admission. #Bilateral amputee #Recent amputation left lower extremity [id number], April 11, 2020 #CAD status post PCI w/ GEETHA x3 #ESRD on HD #PAD #Abnormal stress test Work-up ordered reveals cholelithiasis and gallbladder sludge, CRP elevated, ESR elevated slightly. Procalcitonin elevated 0.76. Troponins elevated but flat. No specific acute ST changes on EKG. Echo showed EF 47%, diastolic dysfunction, LV hypokinesis. He was placed on cipro and flagyl. Gen surg evaluated patient. Recommendations appreciated. No acute surgical intervention indicated at this time. COntinue wound care Will switch patient to oral cipro and flagyl today for total 7 days Cardio to see patient today and discuss potential angiogram. Stress test abnormal Plan for cath in AM vs outpatient. Will await further recs Continue home medications. Attestations Medical Necessity Statement*: possible dc in 24-48 hours Coding Level of Care Code Acute Printing Roller Handler for [facility] Fwd Diagnoses Acute dyspnea R06.00 CHF exacerbation I50.9 ESRD (end stage renal disease) N18.6 Status post above-knee amputation of left lower extremity Z89.612 ESRD (end stage renal disease) N18.6 Peripheral Vascular Disease I73.9
[2022-04-18 16:00] VITALS: BP 105/69; PULSE 78; RESP 15; TEMP 36.8; O2SAT 97
--- NOTE | 2022-04-18 16:10 | PM.PN ---
Subjective Subjective: had stress test today. he states there may be a plan for cardiac cath tomorrow Vitals/I&O/Wt Last Vital Signs Temp 98.3 F 04/18/22 16:00 Pulse 78 04/18/22 16:00 Resp 15 04/18/22 16:00 BP 105/69 04/18/22 16:00 Pulse Ox 97 04/18/22 16:00 O2 Del Method 04/18/22 16:00 O2 Flow Rate 2 04/16/22 08:00 04/18/22 04/18/22 04/18/22 06:59 14:59 22:59 Intake Total 300 / 800 780 / 780 Output Total 0 / 0 Balance 300 / 800 780 / 780 Physical Exam Const: COMMON NORMALS: no acute distress and alert Extremity: NARRATIVE EXTREMITY EXAM: no edema Neuro: SENSORIUM/ORIENTATION: Yes alert Data : 04/18/22 04:10 04/18/22 04:10 Micro: Microbiology 04/16/22 16:20 Blood Culture - Preliminary Blood NEGATIVE TO DATE 04/16/22 16:15 Blood Culture - Preliminary Blood NEGATIVE TO DATE A&P Assessment and plan (1) ESRD (end stage renal disease): (2) ESRD (end stage renal disease): seen via telemedicine during HD with assistance of RN at bedside Plan 1. ESRD, HD T//S 2. mild hyponatremia - stable 3. s/p BKA 4. Coronary artery disease 5. Diabetic nephropathy Rec: HD today, 3.5h, UF 1.5 L, 3K bath. Next HD April 21 Attestations Medical Necessity Statement*: per primary service Time Spent in Patient Care: 16 - 35 minutes Coding Level of Care Code Acute Costume Rental Clerk for g Fwd Diagnoses ESRD (end stage renal disease) N18.6 ESRD (end stage renal disease) N18.6
[2022-04-18] MEDS: metroNIDAZOLE 500 MG Tablet PO (17:32)
[2022-04-18 19:47] VITALS: BP 103/67; PULSE 77; RESP 16; TEMP 36.7; O2SAT 99
[2022-04-18] MEDS: aspirin 81 mg EC Tablet PO (21:00)
[2022-04-18] MEDS: clopidogrel 75 mg Tablet PO (21:00)
[2022-04-18] MEDS: ciprofloxacin 500 mg Tablet PO (21:00)
[2022-04-18 22:00] VITALS: PULSE 72
[2022-04-19] VITALS (16 sets, daily range): BP systolic 103–120; BP diastolic 61–84; PULSE 71–79; RESP 16–18; TEMP 36.7–36.8; O2SAT 90–100
[2022-04-19 05:06] LABS: Basophils # 0.1 10^3/uL (0.0-0.1); Basophils % 1.4 %; Eosinophils # 0.4 10^3/uL (0.0-0.8); Eosinophils % 4.7 %; Hematocrit 39.5 % (42.0-52.0); Lymphocytes # 1.7 10^3/uL (0.8-4.8); Mean Corpuscular HGB Conc 30.4 g/dL (30.0-36.0); Mean Corpuscular Hemoglobin 32.3 pg (28.0-34.0); Mean Corpuscular Volume 106.2 fl (80-94); Mean Platelet Volume 9.9 fL (7.4-10.4); Monocytes # 0.9 10^3/uL (0.2-0.9); Neutrophils # 4.68 10^3/uL (1.8-7.7); Neutrophils % 59.5 %; Nucleated Red Blood Cells % 0 %; Platelet Count 121 10^3/cmm (130-400); Red Blood Count 3.72 10^6/uL (4.1-5.3); Red Cell Distribution Width 16.2 % (12.1-15.1); White Blood Count 7.9 10^3/uL (4.0-10.0)
[2022-04-19 05:38] LABS: Anion Gap 17.3 (5-19); Blood Urea Nitrogen 12 mg/dL (6-20); Calcium 9.7 mg/dL (8.5-10.5); Carbon Dioxide 26 mmol/L (22-29); Chloride 95 mmol/L (98-107); Glomerular Filtration Rate 17.9 mL/min (90-130); Glucose 100 mg/dL (65-115); Osmolality Calculated 278 mOsm/kg (285-295); Potassium 4.3 mmol/L (3.5-5.1); Sodium 134 mmol/L (136-145)
[2022-04-19] MEDS: midodrine 5 mg TABLET 10 MG PO ×2 (08:12→19:57)
[2022-04-19] MEDS: ciprofloxacin 500 mg Tablet PO ×2 (08:13→19:57)
[2022-04-19] MEDS: metroNIDAZOLE 500 MG Tablet PO ×2 (08:13→19:57)
--- NOTE | 2022-04-19 08:48 | XACV_ITS ---
Exam Room: 250 Ht: 173 cm Wt: 78 kg BSA: 1.94 m2 Gender: Male : 1975 Any Known Allergies: Other Exam Priority: Routine Procedure(s): Procedure Description: Diagnostic procedure Procedure Description: PCI procedure Procedure Description: PTCA Procedure Description: Coronary Angiography Diagnostic Cath Status: Urgent Diagnostic Findings * INDICATION: Patient has been having epigastric discomfort radiating to chest that has worsened over the last few days. Stress test is abnormal. * RCA is non-dominant vessel. Appears to be subtotally occluded proximally with collateral supply. Proximal Right Coronary Artery: subtotal occlusion, STEPAN: 1 flow. * Left Main has no significant disease. * Proximal LAD has patent stents. Mid Left Anterior Descending: severe, heavily calcified 90% stenosis, STEPAN: 3 flow. Distal vessel has diffuse disease. * Mid Circumflex: total occlusion, STEPAN: 0 flow. * First Obtuse Marginal Branch Segment: total occlusion, STEPAN: 0 flow. * Coronary angiography shows left dominance. PCI Status: Elective PCI Indication: Other Interventional Findings * Mid Left Anterior Descendin% stenosis treated with a AB TREK 2.25X12 RX BALLOON. 70% residual stenosis, STEPAN: 3 flow. * PROCEDURE DETAIL: We engaged left main artery with XB 3.0 guide catheter. IV heparin was administered to maintain ACT above 250 S. We used 0.014 run-through guidewire to cross mid LAD stenosis and was put in distal vessel. 2.25 x 12 mm semicompliant balloon was used to dilate the stenosis. We attempted to put stent however stent would not cross. Vessel was heavily calcified. We dilated the vessel again with same balloon. Given difficulty crossing with stent, we decided to abort further attempts. Guidewire and guide catheter were removed. Final angiogram showed STEPAN-3 flow. Stenosis at improved minimally.. Conclusions 1. 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 Subtotal occlusion of nondominant small sized RCA 2. with collateral blood flow.. 3. Severe mid LAD stenosis s/p balloon angioplasty. Stent could not be advanced. Heavily calcified vessel. It will need arthrectomy if revascularization is planned. It will be high risk procedure and will need LV support device and high risk of complications. Other option will be to pursue medical therapy. Options will be discussed with patient and family.. 4. Mid Left Anterior Descending was treated with a Balloon. Recommendations * Continue aspirin and plavix. * Further options of high risk PCI with arthrectomy vs medical therapy will be discussed with patient and family. Interventional RX Recommendation: PCI w/o planned CABG Diagnostic RX Recommendation: PCI w/o planned CABG Anticoagulation: Heparin Pressures Phase:Rest AO : 94 / 57 ( 70 ) @ 5:29:00 PM 134 / 54 ( 70 ) @ 5:30:00 PM 79 / 52 ( 65 ) @ 5:32:00 PM 120 / 17 ( 37 ) @ 5:40:00 PM 67 / 48 ( 58 ) @ 5:45:00 PM Clinical Evaluation EBL: 5mL-10mL Procedural Details Procedure Consent Obtained. Current Diagnosis : Chest Pain. Pre-Procedure Time Out. Identified patient by full name and date of as verbalized by the patient/guarantor. Does the consent match the physician's order: Yes. Accurate & Complete Informed Consent: Yes. Inpatient/Outpatient History & Physical on Chart: Yes. If H&P is completed, is and addenduem needed: No; If yes, is the addendum complete: N/A. Visualize and Verify Site with Patient/Guarantor: N/A. Relevant Radiology Images available: Yes. Pre-op teaching completed and patient verbalized understanding. The risks, benefits, and alternatives of sedation and/or procedure were discussed by physician. The patient agrees to continue. Procedure started. Paulina Omalley RT(R) was relieved by Costa Petty RN, IMPORT EXPORT COORDINATOR as monitoring person. [facility] Clinical Fraility Score: 4: Vulnerable. Care Advocate Indications: Other- chest pain, abnormal stress test. Chest Pain Symptom Assessment: Atypical Angina. Cardiovascular Instability: No, stable. Correct patient, site and procedure confirmed by cath team. Current diagnosis: Chest Pain, abnormal stress test. PERRLA. Strong, equal hand principal research economist bilaterally. Lungs clear x 5 lobes. IV Site on Arrival: 20 gauge in the right anticubital. IV Fluids: 0.9% NaCl at KVO. 0 mL infused prior to picket labor union. Pre Procedural Pulses: bilateral radial was 3+. Oxygen started at 3liters/min via nasal canula. Patient is a bilateral amputee. right groin was prepped with chloroprep then draped in the usual sterile fashion. right radial was prepped with chloroprep then draped in the usual sterile fashion. Baseline sample Acquired. HR: 78 BPM. Physician notified. Family updated prior to the start of the procedure. Equipment: 5F - Radial. Cardiac Cath Pack. ACIST Manifold Kit Model BT 2000. Heparinized Saline (2 units/mL), 1000 mL bag. Physician arrived. Physician scrubbed in. Immediate Pre-Procedure Time Out. Correct Patient: Yes; Correct Procedure: Yes; Correct Site: Yes; Correct Patient Position: Yes; Correct Supplies: Yes; Dried Flammable Prep: Yes; Blood Products Available: N/A;. Lidocaine 1% infiltrated to the right radial. Arterial access obtained. A 5 portuguese TIG catheter in over wire. Blood pressure to be monitored via AO transducer d/t limited noninvasive location sites as the patient is amputee bilateral and has a left arm fistula for dialysis. Multiple views taken of left coronary artery. Catheter redirected to the RCA. Multiple views taken of right coronary artery. Catheter removed over the wire. Family updated. 6 portuguese XB 3 guide catheter was inserted over the wire. Guide seated in the LCS. Runthrough guidewire was advanced through the guide catheter to lesion in the mid LAD. Guidewire advanced across lesion. Angiography performed. Inflation number : 1 A AB TREK 2.25X12 RX BALLOON was prepped and advanced across the Mid LAD , then inflated to 8 ODILIA for 0:12 seconds. Angiography performed. Inflation number: 2 The AB TREK 2.25X12 RX BALLOON was reinflated across the Mid LAD, to 8 ODILIA for 0:09 seconds. Angiography performed. Balloon out over the wire. Stent balloon inserted and removed over the wire. Stent balloon out over the wire no cross. Inflation number: 3 The AB TREK 2.25X12 RX BALLOON was reinflated across the Mid LAD, to 14 ODILIA for 0:17 seconds. Inflation number: 3 The AB TREK 2.25X12 RX BALLOON was reinflated across the Mid LAD, to 14 ODILIA for 0:06 seconds. Stent balloon out over the wire no cross. Physician review of films. Wire removed. Guide removed over the standard wire. Physician updated patient and family. Physician scrubbed out. A TR Band was successful obtaining hemostatsis at the Right Radial artery insertion site. TR band placed. Hemostasis obtained. Post Procedure: Pulses reassessed and unchanged. PERRLA. Strong, equal hand principal research economist bilaterally. No VTE prophylaxis required. Medication waste: Heparin 3500 units, Fentanyl 75 mcg, Nitro 49.8 mg. Total IV fluids: 43 mL. Fluoro: 9:00. Contrast type used: Omnipaque 300 mg/mL, 150 mL bottle. [id number]. Post-op diagnosis: DATABASE ADMINISTRATION ASSOCIATE OF THE RCA AND CIRCUMFLEX; SEVERE CALCIFIED MID LAD STENOSIS- S/P BALLOON ANGIOPLASTY NOT AMMENDABLE TO STENTING D/T CALCIFICATION. Complications: none. Estimated blood loss: 5mL-10mL. Responsiveness - Normal response to verbal stimuli; alert and oriented, PERRLA. Airway - Unaffected, no intervention required; spontaneous ventilation. Circulation: W/N/L, pulses unchanged. Nausea/Vomiting: No. Procedure completed. Patient transferred by bed to [facility]. Vital chart was stopped. Access Site Site: Right Radial artery Sheath Size: 6 Fr Hemostasis Method: TR Band Hemostasis Success: Successful Procedure Medications Start: 4:26 PM Stop: 4:26 PM Medication: Versed Amount: 1 mg Route: I.V. Start: 4:28 PM Stop: 4:28 PM Medication: Nitrogylcerin Amount: 200 mcg Route: I.A. Start: 4:28 PM Stop: 4:28 PM Medication: Versed Amount: 1 mg Route: I.V. Start: 4:28 PM Stop: 4:28 PM Medication: Fentanyl Amount: 25 mcg Route: I.V. Start: 4:29 PM Stop: 4:29 PM Medication: Heparin Amount: 2500 units Route: I.V. Start: 4:40 PM Stop: 4:40 PM Medication: Heparin Amount: 5000 units Route: I.V. I, the attending physician, have reviewed and verified all procedure medications. Yes, all medications given per verbal order History/Risk Factors Hypertension: No Dyslipidemia: No Peripheral Arterial Disease (PAD): Yes Myocardial Infarction (TN): No Obesity: No Renal Disease: Yes Dialysis: Current Prior Interventions PCI: Yes CABG: No Valve Surgery: No Date of PCI: 03/29/2018 Report Signatures Finalized by Dex Johnson MD on 04/20/2022 11:37 AM
--- NOTE | 2022-04-19 08:52 | PC.CHAP ---
Pastoral Care Encounter/Spiritual Assessment Type of Contact [] Declined community arts worker visit [] Patient/Family/Request visit [] Outpatient visit [] Follow-up visit [] Physician referral [] Code/Alert [x] Routine visit [] Staff referral [] Actively dying [] Patient sleeping [] Family support [] [] Out of room [] Palliative care [] [] Receiving care in room [] Pre-surgical visit [] Trauma [] Long length of stay [] ICU visit [] Other: Relational/Emotional Strength [x] Patient feels connected with others/family/visitors/staff [] Distress [] Loneliness/isolation [] Abandonment Spirituality of Patient [] Person of Mabel [] Attends Evangelical of their Mabel [] Believes in Prayer [] Reads Bible or Yazidi materials [] There are Spiritual issues to be addressed Business Analyst Consultant Interventions [x] Prayer [x] Active listening [x] Non-anxious presence [x] Spiritual/emotional support [] Crisis/trauma care [] Spiritual counseling [] Bereavement support [] Provided bereavement packet [] Provided Bible/devotional materials [] Provided toy/stuffed animal, coloring book to patient or family member [] Provided Communion [] Anointing/[place] [] Salvation [x] Completed spiritual assessment [] Other: Impact on Illness or Injury [] Angry [] Fearful [] Anxious [] Often cries [] Exhaustion [] Unable to work [] Unable to attend buddhism [] Unable to walk/stand [] Unable to read [] Unable to drive [] Unable to eat/drink [] Unable to sleep [] Unable to be with family [] Patient intubated [] Other: Summary Business Analyst Consultant entered room to speak with roommate who was asleep. Pt was awake and sitting up in bed and spoke up as community arts worker came by. Waiting to determine if surgery will happen today. Requested prayer. Time spent with patient 10m
[2022-04-19] MEDS: sodium chloride 0.9% 1,000 ML 50 ML IV (09:09)
[2022-04-19] MEDS: diphenhydrAMINE 50 mg Capsule PO (09:09)
--- NOTE | 2022-04-19 09:31 | PM.PN ---
Subjective Subjective: Seen and examined this morning. Patient will go for cath today and afternoon. He is chest pain-free at this time. Procedures towards the afternoon and therefore we will let him have a light breakfast this morning. Vitals/I&O/Wt Last Vital Signs Temp 98.1 F 04/19/22 16:00 Pulse 79 04/19/22 16:00 Resp 16 04/19/22 16:00 BP 104/63 04/19/22 16:00 Pulse Ox 98 04/19/22 16:00 O2 Del Method 04/19/22 16:00 O2 Flow Rate 2 04/18/22 20:00 Physical Exam Const: COMMON NORMALS: no acute distress and patient oriented x3 Resp: COMMON NORMALS: normal respiratory effort, No retractions, No use of accessory muscles and clear to auscultation bilaterally AUSCULTATION: clear to auscultation bilaterally Cardio: COMMON NORMALS: regular rate, regular rhythm, S1 normal heart sound present and S2 normal heart sound present RATE: regular rate RHYTHM: regular rhythm HEART SOUNDS: S1 normal heart sound present and S2 normal heart sound present GI: COMMON NORMALS: Normal to inspection, nondistended, normoactive bowel sounds present, non-tender and no masses Extremity: NARRATIVE EXTREMITY EXAM: Right below-knee amputation, left knee above-knee amputation, with bandage on top, looks clean and dry Neuro: COMMON NORMALS: patient oriented x3 Psych: COMMON NORMALS: mental status grossly normal Data : 04/19/22 03:41 04/19/22 03:41 A&P Assessment and plan (1) Acute dyspnea: (2) CHF exacerbation: (3) ESRD (end stage renal disease): (4) Status post above-knee amputation of left lower extremity: (5) ESRD (end stage renal disease): (6) Peripheral Vascular Disease: Plan 46-year-old male, bilateral amputee, recent amputation of left lower extremity, ESRD on hemodialysis presented to the emergency room when he felt acutely unwell while on dialysis. He was initially feeling short of breath. Work-up in the ER included a CTA of the chest which was negative for PE, no gross consolidation. EKG without acute ST-T wave changes.? Elevated baseline troponin at 86, remained the same at 2 hours and 6 hours without any significant delta. There are no signs of hyperkalemia or other electrolyte abnormalities. Suspect that patient's transient symptoms may have been related to extra dialysis session today.? Typically patient gets dialysis on Sunday, however due to his admission over this past week he was getting dialysis on Sunday and Sunday. His next session is due on Sunday.? However given that patient has just received contrast for a CTA, will get dialysis this afternoon Has been telling me that he has not been feeling well with the dialysis session that he received on Sunday, he does better with dialysis as inpatient Patient is currently back to baseline.? Denies any dyspnea.? Saturating 97% on room air.? Benign exam overall.? No signs of CHF. Above note is from admission. #Bilateral amputee #Recent amputation left lower extremity [id number], April 11, 2020 #CAD status post PCI w/ GEETHA x3 #ESRD on HD #PAD #Abnormal stress test Work-up ordered reveals cholelithiasis and gallbladder sludge, CRP elevated, ESR elevated slightly. Procalcitonin elevated 0.76. Troponins elevated but flat. No specific acute ST changes on EKG. Echo showed EF 47%, diastolic dysfunction, LV hypokinesis. He was placed on cipro and flagyl. Gen surg evaluated patient. Recommendations appreciated. No acute surgical intervention indicated at this time. COntinue wound care continue oral cipro and flagyl today for total 7 days Plan for cath today towards the afternoon. Stress test abnormal. We will plan to discharge patient after cath. Continue home medications. Attestations Medical Necessity Statement*: Continue to monitor in the hospital today. Potential discharge after cath today. . Coding Level of Care Code Acute Cook Helper Dessert for Meka Fischer Diagnoses Acute dyspnea R06.00 CHF exacerbation I50.9 ESRD (end stage renal disease) N18.6 Status post above-knee amputation of left lower extremity Z89.612 ESRD (end stage renal disease) N18.6 Peripheral Vascular Disease I73.9
--- NOTE | 2022-04-19 11:23 | PC.SOCIAL ---
Imm update Imm updated with patient at bedside. Copy of page 2 provided. Patient verbalized understanding. Copy in chart initialed, dated and timed.
--- NOTE | 2022-04-19 15:21 | PM.PN ---
Subjective Subjective: waiting for cardiac cath denies chest pain, dyspnea Vitals/I&O/Wt Last Vital Signs Temp 98.2 F 04/19/22 11:16 Pulse 78 04/19/22 11:16 Resp 16 04/19/22 11:16 BP 105/61 04/19/22 11:16 Pulse Ox 99 04/19/22 11:16 O2 Del Method 04/19/22 11:16 O2 Flow Rate 2 04/18/22 20:00 Physical Exam Const: COMMON NORMALS: no acute distress and alert Extremity: NARRATIVE EXTREMITY EXAM: B/L amputee L forearm AVF Neuro: SENSORIUM/ORIENTATION: Yes alert Data : 04/19/22 03:41 04/19/22 03:41 A&P Assessment and plan (1) ESRD (end stage renal disease): (2) ESRD (end stage renal disease): seen via telemedicine during HD with assistance of RN at bedside Plan 1. ESRD, HD T/Th/S 2. mild hyponatremia - stable 3. s/p BKA 4. Coronary artery disease, awaiting cardiac cath 5. Diabetic nephropathy Rec: HD tomorrow, 3.5h, UF 1.5 L, 2K bath. No IVs, BPs, blood draws left arm Attestations Medical Necessity Statement*: per primary service Time Spent in Patient Care: 16 - 35 minutes Coding Level of Care Code Acute Application Support Engineer for g Fwd Diagnoses ESRD (end stage renal disease) N18.6 ESRD (end stage renal disease) N18.6
--- NOTE | 2022-04-19 16:20 | P.HPUD_ITS ---
Surgery/Procedure H&P Update DATE OF PROCEDURE: April 19, 2022 DATE H&P PERFORMED: 04/17/22 H&P UPDATE INFORMATION: I have reviewed H&P completed within last 30 days, I have examined patient prior to procedure and No changes to prior documentation PREOP DIAGNOSIS: Chest pain/abnormal stress test PRIMARY INDICATION FOR PROCEDURE: Chest pain/Abnormal stress test PLANNED PROCEDURE: Left heart cath with possible percutaneous coronary intervention PATIENT REASSESSED PRIOR TO SEDATION, WITH NO CHANGE NOTED: Yes PHYSICAL EXAM: alert, oriented x 3, clear to auscultation bilaterally and regular rate & rhythm AIRWAY EVAL/ANESTHESIA PLAN: ASA IV, Local Anesthesia, Risks, benefits & a lternatives of sedation and/or procedure discussed and Patient agrees to continue as planned ADDITIONAL INFORMATION: Moderate sedation
--- NOTE | 2022-04-19 17:27 | PM.PN ---
Subjective Subjective: Patient is stable. Underwent coronary angiogram today that showed MIDDLE SCHOOL HISTORY TEACHER of RCA and LCx and severe mid LAD stenosis that is heavily calcified and post stenosis has a diffusely diseased small caliber vessel. We performed balloon angioplasty of the LAD stenosis. Stent could not be advanced because of calcification Vitals/I&O/Wt Last Vital Signs Temp 98.1 F 04/19/22 16:00 Pulse 79 04/19/22 16:00 Resp 16 04/19/22 16:00 BP 104/63 04/19/22 16:00 Pulse Ox 98 04/19/22 16:00 O2 Del Method 04/19/22 16:00 O2 Flow Rate 2 04/18/22 20:00 Physical Exam Narrative: GENERAL: Patient is alert, awake and oriented x3. [] NECK: No jugular vein distension. [] HEENT: No cyanosis. No icterus. No pallor. [] HEART: Regular S1 and S2. No murmur, rub or gallop. [] LUNGS: Clear to auscultate bilaterally. [] ABDOMEN: Soft CENTRAL NERVOUS SYSTEM: Grossly nonfocal. [] EXTREMITIES: Bilateral lower extremity amputations Data : 04/19/22 03:41 04/19/22 03:41 A&P Assessment and plan (1) ESRD (end stage renal disease): (2) Peripheral Vascular Disease: (3) Chest pain: Plan Patient is overall stable. Has severe CAD with MIDDLE SCHOOL HISTORY TEACHER's of RCA and left circumflex artery. Only patent vessel his LAD that also has severe mid vessel stenosis and after the stenosis it is a diffusely diseased, small caliber vessel. Balloon angioplasty was performed for the stenosis. Mild improvement in flow was noted. However stent could not be advanced secondary to calcification. I have discussed in detail the options of medical therapy versus possible evaluation for a high risk Impella supported PCI with arthrectomy. Patient and family want to think about it and will decide later. We will watch him overnight in the hospital and if stable in the morning can be discharged. Continue aspirin and Plavix Thank you for involving us with care of this patient. We will continue to follow. Please call with questions. Attestations Medical Necessity Statement*: Care expected to cross 2 midnights. Coding Level of Care Code Acute Supervisor Contact And Service Clerks for Meka Fwdeyvi Diagnoses ESRD (end stage renal disease) N18.6 Peripheral Vascular Disease I73.9 Chest pain R07.9
[2022-04-19] MEDS: clopidogrel 75 mg Tablet PO (19:57)
[2022-04-19] MEDS: aspirin 81 mg EC Tablet PO (19:57)
--- NOTE | 2022-04-19 20:10 | PC.NURSE ---
Attempted removal of air from TR band to right wrist. Noted site immediately begin to bleed replaced air. VS wnl. Removed BP pressure cuff removed at this time. Will check regularly after TR band is removed. Instructed patient on site care and restrictions. Patient verbalized complete understanding will continue to monitor
--- NOTE | 2022-04-19 21:01 | PC.NURSE ---
Removed 2ml of air from TR band at this time. Hemostasis holding presently. Pulse palpable with warm extremity noted. No s/s of bleeding or hematoma observed. Will continue to monitor.
--- NOTE | 2022-04-19 22:13 | PC.NURSE ---
TR band removed at this time. No s/s of bleeding or hematoma formation observed at this time. Patient denies pain to site. Covered with 2x2 and bio-occlusive dressing. Instructed patient on site care and restrictions. Patient verbalized complete understanding. Will continue to monitor.
--- NOTE | 2022-04-19 23:34 | PC.NURSE ---
Right radial access site remains c,d,i with no s/s of bleeding or hematoma formation. Patient denies pain to site. Pulse, warm and pink to right hand. Will continue to monitor.
[2022-04-20] VITALS: BP 102/72; PULSE 74; RESP 17; TEMP 36.9; O2SAT 99
[2022-04-20 03:55] VITALS: PULSE 73
[2022-04-20 04:00] VITALS: BP 115/79; PULSE 72; RESP 19; TEMP 36.6; O2SAT 96
[2022-04-20] MEDS: acetaminophen 325 mg Tablet 650 MG PO (04:11)
[2022-04-20 05:32] LABS: SARS Covid-2 Antigen negative (Negative)
[2022-04-20 07:37] VITALS: BP 106/75; PULSE 72; RESP 17; TEMP 36.7; O2SAT 99
[2022-04-20] MEDS: ciprofloxacin 500 mg Tablet PO (07:53)
[2022-04-20] MEDS: metroNIDAZOLE 500 MG Tablet PO (07:54)
[2022-04-20] MEDS: midodrine 5 mg TABLET 10 MG PO (07:54)
[2022-04-20] MEDS: polyethylene glycol 3350 Pkt 17 gm PO (07:54)
--- NOTE | 2022-04-20 08:45 | P.PN_ITS ---
Subjective Subjective: feels well, anticipating discharge today and will go to outpatient dialysis unit s/p cardiac cath yesterday - states plan is for medicatl management Vitals/I&O/Wt Last Vital Signs Temp 98.0 F 04/20/22 07:37 Pulse 72 04/20/22 07:37 Resp 17 04/20/22 07:37 BP 106/75 04/20/22 07:37 Pulse Ox 99 04/20/22 07:37 O2 Del Method 04/20/22 07:37 O2 Flow Rate 2 04/18/22 20:00 04/19/22 04/20/22 04/20/22 22:59 06:59 14:59 Intake Total 805 / 805 360 / 1165 Output Total 0 / 0 Balance 805 / 805 360 / 1165 Physical Exam Const: COMMON NORMALS: no acute distress and alert Extremity: NARRATIVE EXTREMITY EXAM: b/l amputee left forearm AVF - pt reports + thrill - no issues Neuro: SENSORIUM/ORIENTATION: Yes alert Data : 04/19/22 03:41 04/19/22 03:41 A&P Assessment and plan (1) ESRD (end stage renal disease): (2) ESRD (end stage renal disease): seen via telemedicine during HD with assistance of RN at bedside Plan 1. ESRD, HD T//S 2. mild hyponatremia - stable 3. s/p AKA 4. Coronary artery disease 5. Diabetic nephropathy Rec: stable for discharge from renal standpoint. Outpatient HD planned for today Attestations Medical Necessity Statement*: per primary servive Time Spent in Patient Care: less than 15 minutes Coding Level of Care Code Acute Carpentry Instructor for g Fwd Diagnoses ESRD (end stage renal disease) N18.6 ESRD (end stage renal disease) N18.6
--- NOTE | 2022-04-20 09:16 | PM.PN ---
Subjective Subjective: Patient is stable. Denies any overnight chest pain. He has decided to pursue medical therapy at this time. Vitals/I&O/Wt Last Vital Signs Temp 98.0 F 04/20/22 07:37 Pulse 72 04/20/22 07:37 Resp 17 04/20/22 07:37 BP 106/75 04/20/22 07:37 Pulse Ox 99 04/20/22 07:37 O2 Del Method 04/20/22 07:37 O2 Flow Rate 2 04/18/22 20:00 04/19/22 04/20/22 04/20/22 22:59 06:59 14:59 Intake Total 805 / 805 360 / 1165 Output Total 0 / 0 Balance 805 / 805 360 / 1165 Physical Exam Narrative: GENERAL: Patient is alert, awake and oriented x3. [] NECK: No jugular vein distension. [] HEENT: No cyanosis. No icterus. No pallor. [] HEART: Regular S1 and S2. No murmur, rub or gallop. [] LUNGS: Clear to auscultate bilaterally. [] ABDOMEN: Soft CENTRAL NERVOUS SYSTEM: Grossly nonfocal. [] EXTREMITIES: Bilateral lower extremity amputations Data : 04/19/22 03:41 04/19/22 03:41 A&P Assessment and plan (1) ESRD (end stage renal disease): (2) Peripheral Vascular Disease: (3) Chest pain: (4) CAD (coronary artery disease): Plan Patient is overall stable. Has severe CAD with UNDERCAR SPECIALIST's of RCA and left circumflex artery. Only patent vessel his LAD that also has severe mid vessel stenosis and after the stenosis it is a diffusely diseased, small caliber vessel. Balloon angioplasty was performed for the stenosis. Mild improvement in flow was noted. However stent could not be advanced secondary to calcification. I have discussed in detail the options of medical therapy versus possible evaluation for a high risk Impella supported PCI with arthrectomy. Patient and family want to pursue medical therapy at this time. Continue aspirin and Plavix Secondary to his hypotension and need for midodrine, we do not have room to initiate beta-blockers. I will see patient next week in the office and depending on blood pressure readings at snf, can decide if can add low-dose beta-theodore Thank you for involving us with care of this patient. We will continue to follow. Please call with questions. Attestations Medical Necessity Statement*: Care expected to cross 2 midnights Coding Level of Care Code Acute Electrical And Instrumentation Mechanic for Marandag Fwd Diagnoses ESRD (end stage renal disease) N18.6 Peripheral Vascular Disease I73.9 Chest pain R07.9 CAD (coronary artery disease) I25.10
--- NOTE | 2022-04-20 09:19 | PM.DCS ---
Discharge Providers Date of Admission: 04/16/22 17:27 Date of Discharge: April 19, 2022 Attending Provider at Admission: Suly Schneider MD Attending Provider at Discharge: Destinee Turner MD Primary Care Provider: Julius Aguila DO Diagnoses at Discharge Discharge Diagnosis (1) ESRD (end stage renal disease): Status: Acute (2) ESRD (end stage renal disease): Status: Acute Reason for Visit Reason for Visit: SOB; FATIGUE Brief History: Neal Otto is a 46 year old male with CKD on HD, PAD s/p amputation of left leg for progressive gangrene on 04/14 presented from outpatient dialysis with c/no not feeling well. He reports that he typically gets HD on Sun/Sun/Sun, while he was in the hospital this past week, his HD schedule was changed to Sun/Sun/Sun. He had HD prior to discharge yesterday(Sun) and then went on his usual schedule today (Sun). Approx 1.5 hrs into HD, he started feeling unwell. He has uneasiness in his chest and felt short of breath. The symptoms resolved shprtly after arrival at ER. He feels back to baseline by time of assessent. Hospital Course Hospital Course 46-year-old male, bilateral amputee, recent amputation of left lower extremity, ESRD on hemodialysis presented to the emergency room when he felt acutely unwell while on dialysis. He was initially feeling short of breath. Work-up in the ER included a CTA of the chest which was negative for PE, no gross consolidation. EKG without acute ST-T wave changes.? Elevated baseline troponin at 86, remained the same at 2 hours and 6 hours without any significant delta. There are no signs of hyperkalemia or other electrolyte abnormalities. Suspect that patient's transient symptoms may have been related to extra dialysis session today.? Typically patient gets dialysis on Sunday, however due to his admission over this past week he was getting dialysis on Sunday and Sunday. His next session is due on Sunday.? However given that patient has just received contrast for a CTA, will get dialysis this afternoon Has been telling me that he has not been feeling well with the dialysis session that he received on Sunday, he does better with dialysis as inpatient Patient is currently back to baseline.? Denies any dyspnea.? Saturating 97% on room air.? Benign exam overall.? No signs of CHF.? Patient was seen by wound care during hospital stay and dressing was changed. He was personally seen by Dr. Hernández. There was suspicion of cholecystitis and therefore he was placed on ciprofloxacin and Flagyl. He was seen by general surgery but no acute surgical intervention was indicated at this time. We empirically completed patient ciprofloxacin and Flagyl for total of 7 days course. Patient's ESR and CRP elevation most likely secondary to recent amputation procedure done at previous hospital stay. Due to patient's nonspecific chest pain echocardiogram was done which showed left ventricular hypokinesis. We did not have any previous echoes to compare to. Patient had a stress test. Stress test did show some thor-infarct ischemia therefore patient went for cardiac angiogram today. Patient is status postcardiac catheterization at this time.? Discussed with cardiology results are as follows: RCA and circumflex complete total occlusion LAD mid vessel lesion heavily calcified 95%.? Attempted balloon angioplasty but not very successful.? Patient potentially needs arthrectomy.? Pt opted for medical management at this time. He was kept in hospital for postop care. Pt would like to opt for medical management at this time and would like to wait on another procedure. He denies chest pain, shortness of breath and is doing well. Patient to follow-up with cardiology as an outpatient after discharge. He will go for his dialysis appointment as an outpatient after discharge in a.m. Patient will be discharged to rehab. All questions answered to patient's satisfaction. He was given ample opportunity to ask all questions. mother present at bedside Physical Exam Const: COMMON NORMALS: no acute distress and patient oriented x3 Resp: COMMON NORMALS: normal respiratory effort, No retractions, No use of accessory muscles and clear to auscultation bilaterally AUSCULTATION: clear to auscultation bilaterally Cardio: COMMON NORMALS: regular rate, regular rhythm, S1 normal heart sound present and S2 normal heart sound present RATE: regular rate RHYTHM: regular rhythm HEART SOUNDS: S1 normal heart sound present and S2 normal heart sound present GI: COMMON NORMALS: Normal to inspection, nondistended, normoactive bowel sounds present, non-tender and no masses Extremity: NARRATIVE EXTREMITY EXAM: Right below-knee amputation, left knee above-knee amputation, with bandage on top, looks clean and dry RIght wrist angiogram access site covered with bandage. No fluctuance noted. hand well perfused. Neuro: COMMON NORMALS: patient oriented x3 Psych: COMMON NORMALS: mental status grossly normal Discharge Data Studies Completed and Pending Completed Studies During Hospitalization Category Date Time Status CTA chest [CT angio chest PE protcl [id number]] Stat Cat Scan 04/15/22 16:22 Completed Sestamibi Stress Test Request Routine Exams 04/18/22 08:46 Draft XR chest 1V portable [id number] Stat Exams 04/15/22 14:58 Completed NM meenakshi perf SPECT r/s* [id number] Routine Nuc Med 04/18/22 08:47 Completed CV. echo complete* [id number] Routine Ultrasound 04/16/22 15:32 Completed US gall bladder [id number] Routine Ultrasound 04/17/22 17:12 Completed Pending at discharge Category Date Time Status CERTIFIED GENETIC COUNSELOR request for service Routine Exams 04/19/22 08:48 Ordered Blood Culture Stat Lab 04/16/22 16:15 Results SARS Covid-2 Antigen Routine Lab 04/20/22 07:00 Uncollected Radiology Impressions Chest X-Ray 04/15/22 14:58 IMPRESSION: Cardiomegaly, lungs are clear Chest CTA 04/15/22 16:22 IMPRESSION: 1. Negative for pulmonary embolus. 2. Small right pleural effusion. 3. Cirrhotic liver suspected. 4. Small amount of perihepatic ascites. 5. Cholelithiasis. 6. Scattered prominent mediastinal lymph nodes measuring up to 14 mm, nonspecific. 7. Coronary artery atherosclerotic calcifications. Gallbladder Ultrasound 04/17/22 17:12 IMPRESSION: 1. Cholelithiasis and gallbladder sludge. Consider acute cholecystitis. There is no pericholecystic fluid. No bile duct dilatation. 2. Normal size liver with suspected early changes of cirrhosis. 3. Small atrophic RIGHT kidney. Chronic medical renal disease. Laboratory Results WBC 7.9 10^3/uL (4.0-10.0) 04/19/22 03:41 RBC 3.72 10^6/uL (4.1-5.3) L 04/19/22 03:41 Hgb 12.0 g/dL (11.7-16.6) 04/19/22 03:41 Hct 39.5 % (42.0-52.0) L 04/19/22 03:41 MCV 106.2 fl (80-94) H 04/19/22 03:41 MCH 32.3 pg (28.0-34.0) 04/19/22 03:41 MCHC 30.4 g/dL (30.0-36.0) 04/19/22 03:41 RDW 16.2 % (12.1-15.1) H 04/19/22 03:41 Plt Count 121 10^3/cmm (130-400) L 04/19/22 03:41 MPV 9.9 fL (7.4-10.4) 04/19/22 03:41 Neut % (Auto) 59.5 % 04/19/22 03:41 Lymph % (Auto) 22.0 % 04/19/22 03:41 [place] % (Auto) 12.0 % 04/19/22 03:41 Eos % (Auto) 4.7 % 04/19/22 03:41 Baso % (Auto) 1.4 % 04/19/22 03:41 Neut # (Auto) 4.68 10^3/uL (1.8-7.7) 04/19/22 03:41 Lymph # (Auto) 1.7 10^3/uL (0.8-4.8) 04/19/22 03:41 [place] # (Auto) 0.9 10^3/uL (0.2-0.9) 04/19/22 03:41 Eos # (Auto) 0.4 10^3/uL (0.0-0.8) 04/19/22 03:41 Baso # (Auto) 0.1 10^3/uL (0.0-0.1) 04/19/22 03:41 Nucleated RBC % (auto) 0 % 04/19/22 03:41 Nucleated RBCs # 0.0 /100WBC 04/19/22 03:41 ESR 55 mm/hr (0-10) H 04/16/22 16:20 D-Dimer 8.61 ug/mIFEU (0-0.59) H 04/15/22 15:48 Sodium 134 mmol/L (136-145) L 04/19/22 03:41 Potassium 4.3 mmol/L (3.5-5.1) 04/19/22 03:41 Chloride 95 mmol/L (98-107) L 04/19/22 03:41 Carbon Dioxide 26 mmol/L (22-29) 04/19/22 03:41 Anion Gap 17.3 (5-19) 04/19/22 03:41 BUN 12 mg/dL (6-20) 04/19/22 03:41 Creatinine 3.7 mg/dL (0.7-1.2) H 04/19/22 03:41 GFR Calculation 17.9 mL/min (90-130) L 04/19/22 03:41 Glucose 100 mg/dL (65-115) 04/19/22 03:41 Calculated Osmolality 278 mOsm/kg (285-295) L 04/19/22 03:41 Calcium 9.7 mg/dL (8.5-10.5) 04/19/22 03:41 Total Bilirubin 0.7 mg/dL (0.15-1.2) 04/16/22 04:20 AST 16 U/L (0-40) 04/16/22 04:20 ALT 8 U/L (0-41) 04/16/22 04:20 Alkaline Phosphatase 80 U/L (40-130) 04/16/22 04:20 Troponin T Baseline 86 ng/L (0-15) H 04/15/22 15:00 Troponin T 120 Minute 86.41 ng/L (0-15) H 04/15/22 17:23 Delta Troponin T 0.41 ABS# (0-10) 04/15/22 17:23 Troponin T Hi Sens 6Hr 86.51 ng/L (0-15) H 04/15/22 20:13 Troponin T Hi Sens 6Hr Delta 0.51 ng/L (0-12) 04/15/22 20:13 C-Reactive Protein 39.3 mg/L (0.0-4.9) H 04/17/22 03:35 NT-Pro-B Natriuret Pep > 74258 pg/mL (0-125) H 04/15/22 15:00 Total Protein 7.2 g/dL (6.6-8.7) 04/16/22 04:20 Albumin 3.1 g/dL (3.5-5.2) L 04/16/22 04:20 Globulin 4.1 g/dL (1.3-4.6) 04/16/22 04:20 Lipase 54 U/L (13-60) 04/15/22 15:00 Procalcitonin 0.76 ng/mL (0-0.5) H 04/17/22 03:35 Hep Bs Antigen Non-reactive (Nonreactive) 04/16/22 04:20 Vitals Last Vital Signs Temp 98.1 F 04/19/22 16:00 Pulse 79 04/19/22 16:00 Resp 16 04/19/22 16:00 BP 104/63 04/19/22 16:00 Pulse Ox 98 04/19/22 16:00 O2 Del Method 04/19/22 16:00 O2 Flow Rate 2 04/18/22 20:00 Discharge Plan Discharge Patient Disposition: Xfer SNF Condition: Stable Prescriptions: New metronidazole 500 mg Tablet 500 mg PO BID 2 Days Qty: 4 0RF ciprofloxacin HCl 500 mg Tablet 500 mg PO BID@0900,2100 2 Days Qty: 4 0RF Continued nitroglycerin [Nitrostat] 0.4 mg tablet, sublingual 0.4 mg SUBLINGUAL Q5M PRN (Reason: chest pain) Qty: 25 1RF Rx Instructions: do not exceed 3 doses per episode aspirin [Adult Low Dose Aspirin] 81 mg tablet,delayed release (DR/EC) 81 mg PO BEDTIME vitamin E (dl, acetate) 400 unit capsule 400 unit PO BEDTIME midodrine 10 mg tablet 10 mg PO TID Qty: 270 3RF Rx Instructions: do not give last dose of day after 6PM or within 4 hrs of bedtime Velphoro 500 mg tablet,chewable 500 mg PO TIDWM clopidogrel 75 mg tablet 75 mg PO BEDTIME polyethylene glycol 3350 [Miralax] 17 gram Powder In Packet 17 g PO DAILY acetaminophen 325 mg Tablet 650 mg PO Q6H PRN (Reason: Mild Pain) Qty: 100 0RF Discontinued morphine 15 mg Tablet 15 mg PO 3XD PRN (Reason: Severe Pain) Qty: 30 0RF Discharge Orders: Discharge Order (Routine); Ordered 04/20/22 Ordered By: Destinee Turner Referrals: Mazin Wetzel DO [Physician] - 1 month Dex Johnson M.D [Physician] - 1 month Shahana Silva FNP [Nurse Practitioner] - 1 week Julius Aguila DO [Primary Care Provider] - 4-7 days [facility] [Staff Physician] - 4-7 days Discharge Diet: Usual diet and Cardiac Discharge Activity: Resume usual activity Patient Instructions: Opioid Safety Activity Restrictions/Additional Instructions: Please ensure you attend your dialysis session on 04/20 as you have just had an angiogram. Please follow up with PCP within 4-7 days of discharge. Please return to ER if your develop worsening symptoms or new symptoms develop. Discharge Attestations Time Spent in Discharge Care*: greater than 30 min Status at Discharge: Cognitive status at discharge: cognitively intact, Behavioral status at discharge: cooperative, Quality Metrics Clinical Quality Measures [ No reported AMI, CVA or VTE this stay] Coding Level of Care Code Acute Chg FW DC note Exam Detailed Diagnoses ESRD (end stage renal disease) N18.6 ESRD (end stage renal disease) N18.6
[2022-04-20 10:13] VITALS: BP 106/75; PULSE 72; RESP 17; TEMP 36.7; O2SAT 99
--- NOTE | 2022-04-20 10:14 | PC.NURSE ---
Discharge Note Patient discharged to Care of SNF via SNF Transport accompanied by SNF Staff Discharge instructions reviewed with patient and/or benefits representative. Mobile pharmacy medications and/or prescriptions provided. Belongings/home medications returned.
== END 2022-04-20 10:14 | disposition skilled nursing facility (03) | DRG 250 ==
LOC: ER 19:09 → MEDSURG 19:46
PROVIDERS: Family Medicine; Internal Medicine; Physician Assistant; Admitting Provider Student in an Organized Health Care Education/Training Program; Emergency Provider Emergency Medicine; PCP Internal Medicine; Visit Provider Internal Medicine
PROC: 02703ZZ Dilation of Coronary Artery, One Artery, Percutaneous Approach (ICD-10-PCS; principal; 2022-04-19 10:00)
PROC: 02703ZZ Dilation of Coronary Artery, One Artery, Percutaneous Approach (ICD-10-PCS; 2022-04-19 10:00)
DX: I25.119 Atherosclerotic heart disease of native coronary artery with unspecified angina pectoris (principal); N18.6 End stage renal disease; E11.22 Type 2 diabetes mellitus with diabetic chronic kidney disease; Z99.2 Dependence on renal dialysis; I25.84 Coronary atherosclerosis due to calcified coronary lesion; I25.2 Old myocardial infarction; I25.82 Chronic total occlusion of coronary artery; Z95.5 Presence of coronary angioplasty implant and graft; E11.51 Type 2 diabetes mellitus with diabetic peripheral angiopathy without gangrene; E11.42 Type 2 diabetes mellitus with diabetic polyneuropathy; Z89.511 Acquired absence of right leg below knee; Z89.612 Acquired absence of left leg above knee; F17.210 Nicotine dependence, cigarettes, uncomplicated; K80.20 Calculus of gallbladder without cholecystitis without obstruction; Z79.82 Long term (current) use of aspirin; Z79.02 Long term (current) use of antithrombotics/antiplatelets
CPT/HCPCS: 36415; 71045; 71275; 76705; 78452; 80048; 80053; 83690; 83880; 84145; 84484; 85025; 85378; 85651; 86140; 87040; 87340; 87426; 92920; 93005; 93017; 93306; 93454; 96360; 99152; 99153; 99285; A9500; C1725; C1769; C1874; C1887; C1894; G0378; J0744; J1644; J2250; J2765; J2785; J3010; J3490; J7030; Q0163; Q3014; Q9967; S0030

== ENCOUNTER → 2022-04-26 09:19 | Outpatient (BNVA) | payer MEDICARE, OTHER, SELFPAY | PROVIDERS: PCP Internal Medicine; Visit Provider Thoracic Surgery (Cardiothoracic Vascular Surgery) | DX: R07.9 Chest pain, unspecified (principal); I73.9 Peripheral vascular disease, unspecified; I25.2 Old myocardial infarction; I95.0 Idiopathic hypotension; F17.210 Nicotine dependence, cigarettes, uncomplicated | CPT/HCPCS: 99212; 99214 ==

== ENCOUNTER → 2022-05-10 08:34 | Outpatient (BNVA) | payer MEDICARE, OTHER, SELFPAY | PROVIDERS: PCP Internal Medicine; Visit Provider Thoracic Surgery (Cardiothoracic Vascular Surgery) | DX: Z09 Encounter for follow-up examination after completed treatment for conditions other than malignant neoplasm (principal) | CPT/HCPCS: 99212 ==

== ENCOUNTER 2022-05-12 11:09 | Inpatient (IN) | payer MEDICARE, OTHER, SELFPAY ==
[2022-05-12] VITALS (11 sets, daily range): BP systolic 64–101; BP diastolic 54–73; PULSE 82–89; RESP 17–24; TEMP 36.6–36.9; O2SAT 90–99; BMI 28.8
--- NOTE | 2022-05-12 11:25 | XR_ITS ---
WS: [id number] Exam: XR chest 1V portable [id number] Date/Time of Exam: 05/12/2022 11:41 AM Reason For Exam: Short of breath, cough Comparison 04/15/2022. Small infiltrate and atelectasis in the right lower lobe. Left lung is clear. No pneumothorax. Slight cardiac enlargement. The mediastinum and bony thorax are unremarkable. XR/XR chest 1V portable [id number] IMPRESSION: 1. Small infiltrate and atelectasis in the right lower lobe. Developing pneumon ia is not excluded. There is also a 1 cm calcified granuloma in this region. 2. Mild cardiac enlargement.
--- NOTE | 2022-05-12 11:35 | ED_ITS ---
Documented by User: Brooklyn De La Rosa PA-C 05/12/22 16:38 HPI - URI/Sore Throat General: Chief Complaint: Upper Respiratory Infection Stated Complaint: SOB/ COUGH X 1 WEEK Time Seen by Provider: 05/12/22 11:20 Source: patient Mode of arrival: EMS Limitations: no limitations History of Present Illness: 46-year-old male with a history of coronary artery disease and end-stage renal disease presents to the ER today for worsening shortness of breath x2 to 3 days. Patient reports he cannot lay down without becoming severely short of breath. Patient reports he also has a very mild cough. Denies any fever or chills. Patient reports a mild runny nose but denies congestion. Denies any recent sick contacts. Patient reports he is also had intermittent chest pain/pressure that is not associated with the shortness of breath. Patient reports he is due for dialysis tomorrow. Review of Systems General: Reports: 10 or more systems reviewed and unremarkable except in HPI and below PFSH ED PFSH: Medical History Cholelithiasis Diabetes mellitus History of non-ST elevation myocardial infarction (NSTEMI) Hypotension Neuropathy Peripheral Vascular Disease Renal failure S/P angiogram of extremity Surgical History History of detached retina repair History of testicular surgery S/P arteriovenous (AV) fistula repair S/P hip arthroscopy S/P LASIK surgery Status post amputation of leg Family History Other Cancer Diabetes Heart disease Hypertension Stroke Social History Smoking and tobacco status: current every day smoker cigarettes Packs smoked per day: 0.5 Physical Exam Const: COMMON NORMALS: average body habitus, patient oriented x3, no limitations and alert HENMT: COMMON NORMALS: normocephalic, atraumatic, external ears normal, TM's normal bilaterally, Normal external nose present, Normal nasal mucous membranes and turbinates present and moist oral mucous membranes HEAD & SCALP: normocephalic and atraumatic NOSE: Normal external nose present and Normal nasal mucous membranes and turbinates present EXTERNAL EAR: Yes external ears normal TYMPANIC MEMBRANE: TM's normal bilaterally Eye: COMMON NORMALS: conjunctivae normal CONJUNCTIVA: Yes conjunctivae normal Lymph: LYMPHATIC: no lymphadenopathy noted Resp: COMMON NORMALS: normal respiratory effort and No retractions EFFORT & INSPECTION: No respiratory distress AUSCULTATION: no rales, no rhonchi, wheezes right lower and diminished lung sounds bilateral Cardio: COMMON NORMALS: regular rate and regular rhythm RATE: regular rate RHYTHM: regular rhythm GI: COMMON NORMALS: Normal to inspection, nondistended, normoactive bowel sounds present, Soft to palpation and non-tender PALPATION: Yes Soft to palpation Extremity: OTHER: pt a double amputee Neuro: COMMON NORMALS: patient oriented x3 SENSORIUM/ORIENTATION: Yes alert Psych: COMMON NORMALS: mental status grossly normal, Normal thought process present and cooperative THOUGHT PROCESS: Normal thought process present Skin: COMMON NORMALS: no rashes or lesions noted GENERAL SKIN EXAM: no rashes or lesions noted Course ED course: Patient presents for cough and worsening shortness of breath for last 2 to 3 days. Given the worsening shortness of breath happens when he is lying down, we will go ahead and get lab work in addition to a chest x-ray. I do not suspect influenza or COVID given patient has not been febrile. We will start with labs today. Reevaluation(s): Reevaluation #1: Discussed pt with Dr. Rodríguez who recommends discussing admission with hospitalist. Time: 14:39 Reevaluation #2: Dr. Conley recommends admission through linderman machine operator. Time: 15:23 Reevaluation #3: Waiting to hear from nephrology. Time: 16:06 Additional Reevaluation(s): Dr. Branham, linderman machine operator, recommends admission and dialysis either tonight or tomorrow. I then spoke with Dr. Ortega who accepts pt. Dr. Ortega will come to ER to see patient. Vital Signs: Vital signs: Vital Signs Temperature 98.4 F 05/12/22 11:18 Pulse Rate 83 05/12/22 15:00 Respiratory Rate 22 H 05/12/22 15:00 Blood Pressure 99/70 05/12/22 15:00 Pulse Oximetry 90 05/12/22 15:00 Oxygen Delivery Me thod 05/12/22 15:00 MDM - URI/Sore Throat Medical Decision Making Given patient's hypoxia when he is at rest or lying down, elevated white count, probable pneumonia, elevated potassium and creatinine, patient likely needs admission. I did discuss this case with multiple doctors. Dr. Stafford recommended admission. I discussed with Dr. Conley who recommended I discussed this with the linderman machine operator. Dr. Branham agreed patient should be admitted and she will get dialysis either tonight or tomorrow. Dr. Ortega was then contacted and accepts patient for admission. Dr. Ortega also saw patient in the ER. Lab Data : 05/12/22 12:56 05/12/22 12:56 Radiology Impressions Chest X-Ray 05/12/22 11:25 IMPRESSION: 1. Small infiltrate and atelectasis in the right lower lobe. Developing pneumonia is not excluded. There is also a 1 cm calcified granuloma in this region. 2. Mild cardiac enlargement. Laboratory Results WBC 13.8 10^3/uL (4.0-10.0) H 05/12/22 12:56 RBC 3.98 10^6/uL (4.1-5.3) L 05/12/22 12:56 Hgb 12.5 g/dL (11.7-16.6) 05/12/22 12:56 Hct 41.4 % (42.0-52.0) L 05/12/22 12:56 MCV 104.0 fl (80-94) H 05/12/22 12:56 MCH 31.4 pg (28.0-34.0) 05/12/22 12:56 MCHC 30.2 g/dL (30.0-36.0) 05/12/22 12:56 RDW 17.2 % (12.1-15.1) H 05/12/22 12:56 Plt Count 126 10^3/cmm (130-400) L 05/12/22 12:56 MPV 10.2 fL (7.4-10.4) 05/12/22 12:56 Neut % (Auto) 73.7 % 05/12/22 12:56 Lymph % (Auto) 13.8 % 05/12/22 12:56 [place] % (Auto) 11.2 % 05/12/22 12:56 Eos % (Auto) 0.1 % 05/12/22 12:56 Baso % (Auto) 0.6 % 05/12/22 12:56 Neut # (Auto) 10.16 10^3/uL (1.8-7.7) H 05/12/22 12:56 Lymph # (Auto) 1.9 10^3/uL (0.8-4.8) 05/12/22 12:56 [place] # (Auto) 1.6 10^3/uL (0.2-0.9) H 05/12/22 12:56 Eos # (Auto) 0.0 10^3/uL (0.0-0.8) 05/12/22 12:56 Baso # (Auto) 0.1 10^3/uL (0.0-0.1) 05/12/22 12:56 Nucleated RBC % (auto) 0 % 05/12/22 12:56 Nucleated RBCs # 0.0 /100WBC 05/12/22 12:56 Sodium 133 mmol/L (136-145) L 05/12/22 12:56 Potassium 5.3 mmol/L (3.5-5.1) H 05/12/22 12:56 Chloride 87 mmol/L (98-107) L 05/12/22 12:56 Carbon Dioxide 31 mmol/L (22-29) H 05/12/22 12:56 Anion Gap 20.3 (5-19) H 05/12/22 12:56 BUN 25 mg/dL (6-20) H 05/12/22 12:56 Creatinine 4.8 mg/dL (0.7-1.2) H 05/12/22 12:56 GFR Calculation 13.2 mL/min (90-130) L 05/12/22 12:56 Glucose 132 mg/dL (65-115) H 05/12/22 12:56 Calculated Osmolality 282 mOsm/kg (285-295) L 05/12/22 12:56 Calcium 8.6 mg/dL (8.5-10.5) 05/12/22 12:56 Total Bilirubin 1.5 mg/dL (0.15-1.2) H 05/12/22 12:56 AST 21 U/L (0-40) 05/12/22 12:56 ALT 9 U/L (0-41) 05/12/22 12:56 Alkaline Phosphatase 89 U/L (40-130) 05/12/22 12:56 NT-Pro-B Natriuret Pep > 29120 pg/mL (0-125) H 05/12/22 12:56 Total Protein 7.2 g/dL (6.6-8.7) 05/12/22 12:56 Albumin 3.5 g/dL (3.5-5.2) 05/12/22 12:56 Globulin 3.7 g/dL (1.3-4.6) 05/12/22 12:56 Critical Care Time Critical Care Time: Critical Care Time: No Discharge Plan Discharge Patient Disposition: Admitted As Inpatient Clinical Impression: End stage chronic kidney disease, Hypoxia Pneumonia Qualifiers: Pneumonia type: due to unspecified organism Laterality: right Lung location: lower lobe of lung Qualified Code(s): J18.9 - Pneumonia, unspecified organism Condition: Stable Discharge Diet: Usual diet Coding Level of Care Code ED Maintenance Shop Laborer for Chg Fwd Exam Comprehensive Documented by User: Chino Bryant DO 05/12/22 16:49 HPI - URI/Sore Throat General: Chief Complaint: Upper Respiratory Infection Stated Complaint: SOB/ COUGH X 1 WEEK Time Seen by Provider: 05/12/22 11:20 PFSH ED PFSH: Medical History Cholelithiasis Diabetes mellitus History of non-ST elevation myocardial infarction (NSTEMI) Hypotension Neuropathy Peripheral Vascular Disease Renal failure S/P angiogram of extremity Surgical History History of detached retina repair History of testicular surgery S/P arteriovenous (AV) fistula repair S/P hip arthroscopy S/P LASIK surgery Status post amputation of leg Family History Other Cancer Diabetes Heart disease Hypertension Stroke Social History Smoking and tobacco status: current every day smoker cigarettes Packs smoked per day: 0.5 Course Vital Signs: Vital signs: Vital Signs Temperature 98.4 F 05/12/22 11:18 Pulse Rate 83 05/12/22 15:00 Respiratory Rate 22 H 05/12/22 15:00 Blood Pressure 99/70 05/12/22 15:00 Pulse Oximetry 90 05/12/22 15:00 Oxygen Delivery Me thod 05/12/22 15:00 MDM - URI/Sore Throat Medical Decision Making Given patient's hypoxia when he is at rest or lying down, elevated white count, probable pneumonia, elevated potassium and creatinine, patient likely needs admission. I did discuss this case with multiple doctors. Dr. Stafford recommended admission. I discussed with Dr. Conley who recommended I discussed this with the linderman machine operator. Dr. Branham agreed patient should be admitted and she will get dialysis either tonight or tomorrow. Dr. Ortega was then contacted and accepts patient for admission. Dr. Ortega also saw patient in the ER. Chart reviewed and patient discussed with midlevel. Agree with assessment and plan. Medical Records I reviewed the patient's medical records. Lab Data I reviewed the patient's lab results. : 05/12/22 12:56 05/12/22 12:56 Radiology Impressions Chest X-Ray 05/12/22 11:25 IMPRESSION: 1. Small infiltrate and atelectasis in the right lower lobe. Developing pneumonia is not excluded. There is also a 1 cm calcified granuloma in this region. 2. Mild cardiac enlargement. Laboratory Results WBC 13.8 10^3/uL (4.0-10.0) H 05/12/22 12:56 RBC 3.98 10^6/uL (4.1-5.3) L 05/12/22 12:56 Hgb 12.5 g/dL (11.7-16.6) 05/12/22 12:56 Hct 41.4 % (42.0-52.0) L 05/12/22 12:56 MCV 104.0 fl (80-94) H 05/12/22 12:56 MCH 31.4 pg (28.0-34.0) 05/12/22 12:56 MCHC 30.2 g/dL (30.0-36.0) 05/12/22 12:56 RDW 17.2 % (12.1-15.1) H 05/12/22 12:56 Plt Count 126 10^3/cmm (130-400) L 05/12/22 12:56 MPV 10.2 fL (7.4-10.4) 05/12/22 12:56 Neut % (Auto) 73.7 % 05/12/22 12:56 Lymph % (Auto) 13.8 % 05/12/22 12:56 [place] % (Auto) 11.2 % 05/12/22 12:56 Eos % (Auto) 0.1 % 05/12/22 12:56 Baso % (Auto) 0.6 % 05/12/22 12:56 Neut # (Auto) 10.16 10^3/uL (1.8-7.7) H 05/12/22 12:56 Lymph # (Auto) 1.9 10^3/uL (0.8-4.8) 05/12/22 12:56 [place] # (Auto) 1.6 10^3/uL (0.2-0.9) H 05/12/22 12:56 Eos # (Auto) 0.0 10^3/uL (0.0-0.8) 05/12/22 12:56 Baso # (Auto) 0.1 10^3/uL (0.0-0.1) 05/12/22 12:56 Nucleated RBC % (auto) 0 % 05/12/22 12:56 Nucleated RBCs # 0.0 /100WBC 05/12/22 12:56 Sodium 133 mmol/L (136-145) L 05/12/22 12:56 Potassium 5.3 mmol/L (3.5-5.1) H 05/12/22 12:56 Chloride 87 mmol/L (98-107) L 05/12/22 12:56 Carbon Dioxide 31 mmol/L (22-29) H 05/12/22 12:56 Anion Gap 20.3 (5-19) H 05/12/22 12:56 BUN 25 mg/dL (6-20) H 05/12/22 12:56 Creatinine 4.8 mg/dL (0.7-1.2) H 05/12/22 12:56 GFR Calculation 13.2 mL/min (90-130) L 05/12/22 12:56 Glucose 132 mg/dL (65-115) H 05/12/22 12:56 Calculated Osmolality 282 mOsm/kg (285-295) L 05/12/22 12:56 Calcium 8.6 mg/dL (8.5-10.5) 05/12/22 12:56 Total Bilirubin 1.5 mg/dL (0.15-1.2) H 05/12/22 12:56 AST 21 U/L (0-40) 05/12/22 12:56 ALT 9 U/L (0-41) 05/12/22 12:56 Alkaline Phosphatase 89 U/L (40-130) 05/12/22 12:56 NT-Pro-B Natriuret Pep > 28057 pg/mL (0-125) H 05/12/22 12:56 Total Protein 7.2 g/dL (6.6-8.7) 05/12/22 12:56 Albumin 3.5 g/dL (3.5-5.2) 05/12/22 12:56 Globulin 3.7 g/dL (1.3-4.6) 05/12/22 12:56 Discharge Plan Discharge Patient Disposition: Admitted As Inpatient Clinical Impression: End stage chronic kidney disease, Hypoxia Pneumonia Qualifiers: Pneumonia type: due to unspecified organism Laterality: right Lung location: lower lobe of lung Qualified Code(s): J18.9 - Pneumonia, unspecified organism Condition: Stable Discharge Diet: Usual diet Coding Level of Care Code ED Maintenance Shop Laborer for Chg Fwd Exam Comprehensive
[2022-05-12 13:02] LABS: Basophils # 0.1 10^3/uL (0.0-0.1); Basophils % 0.6 %; Eosinophils % 0.1 %; Hematocrit 41.4 % (42.0-52.0); Hemoglobin 12.5 g/dL (11.7-16.6); Lymphocytes # 1.9 10^3/uL (0.8-4.8); Lymphocytes % 13.8 %; Mean Corpuscular HGB Conc 30.2 g/dL (30.0-36.0); Mean Corpuscular Hemoglobin 31.4 pg (28.0-34.0); Mean Platelet Volume 10.2 fL (7.4-10.4); Monocytes # 1.6 10^3/uL (0.2-0.9); Monocytes % 11.2 %; Neutrophils # 10.16 10^3/uL (1.8-7.7); Neutrophils % 73.7 %; Nucleated Red Blood Cells % 0 %; Platelet Count 126 10^3/cmm (130-400); Red Blood Count 3.98 10^6/uL (4.1-5.3); Red Cell Distribution Width 17.2 % (12.1-15.1); White Blood Count 13.8 10^3/uL (4.0-10.0)
[2022-05-12] MEDS: doxycycline 100 MG in sodium chloride 0.9% (plus) 100 ML IV (13:03)
[2022-05-12 13:41] LABS: Alanine Aminotransferase 9 U/L (0-41); Albumin Level 3.5 g/dL (3.5-5.2); Alkaline Phosphatase 89 U/L (40-130); Anion Gap 20.3 (5-19); Aspartate Amino Transferase 21 U/L (0-40); Blood Urea Nitrogen 25 mg/dL (6-20); Calcium 8.6 mg/dL (8.5-10.5); Carbon Dioxide 31 mmol/L (22-29); Chloride 87 mmol/L (98-107); Globulin 3.7 g/dL (1.3-4.6); Glomerular Filtration Rate 13.2 mL/min (90-130); Glucose 132 mg/dL (65-115); Osmolality Calculated 282 mOsm/kg (285-295); Potassium 5.3 mmol/L (3.5-5.1); Sodium 133 mmol/L (136-145); Total Bilirubin 1.5 mg/dL (0.15-1.2); Total Protein 7.2 g/dL (6.6-8.7)
--- NOTE | 2022-05-12 14:16 | ECG_ITS ---
[facility] Test Date: 2022-05-12 Pat Name: Neal Otto Department: Room: Gender: Male Supervisory Examiner: : 1975 Requested By: Brooklyn De La Rosa Order Number: [id number] Coronel MD: Agustina Lawler M.D. Measurements Intervals [place] Rate: 84 P: 24 NV: 209 QRS: 19 QRSD: 145 T: 131 QT: 418 QTc: 496 Interpretive Statements SINUS RHYTHM LEFT BUNDLE BRANCH BLOCK [120+ ms QRS DURATION, 80+ ms Q/S IN V1/V2, 85+ ms R IN I/aVL/V5/V6] Compared to ECG 04/15/2022 21:33:29 Left bundle-branch block now present First degree AV block no longer present Intraventricular conduction delay no longer present Electronically Signed On 05-12-2022 17:59:35 CDT by Agustina Lawler M.D. [id number]
[2022-05-12 14:22] LABS: NT Pro B Type Natriuretic Pept > 70000 pg/mL (0-125)
--- NOTE | 2022-05-12 16:12 | PM.HP ---
Providers/Chief Complaint Primary Care Provider: Julius Aguila DO Chief Complaint: SOB/ COUGH X 1 WEEK History of Present Illness Neal Otto is a 46 year old male who has history of ventral renal disease Sunday, recently had [id number] amputation of left leg, has been evaluated by Dr. Wetzel for gallstones and sludge, Medications/Allergies Home Medications Medication Instructions Recorded Confirmed Last Taken Type aspirin 81 mg tablet,delayed 81 mg PO BEDTIME 12/03/19 05/12/22 04/06/22 History release (Adult Low Dose Aspirin) vitamin E (dl, acetate) 180 mg 400 unit PO BEDTIME 12/03/19 05/12/22 04/10/22 History (400 unit) capsule midodrine 10 mg tablet 10 mg PO TID #270 tabs 08/18/21 05/12/22 04/11/22 Rx nitroglycerin 0.4 mg sublingual 0.4 mg sublingual Q5M PRN chest 02/14/22 05/12/22 Unknown Rx tablet (Nitrostat) pain #25 tabs sucroferric oxyhydroxide 500 mg 500 mg PO TIDWM 02/14/22 05/12/22 04/10/22 History chewable tablet (Velphoro) clopidogrel 75 mg tablet 75 mg PO BEDTIME 03/28/22 05/12/22 04/06/22 History polyethylene glycol 3350 17 gram 17 g PO DAILY 04/07/22 05/12/22 04/10/22 History oral powder packet (Miralax) acetaminophen 325 mg tablet 650 mg PO Q6H PRN Mild Pain #100 04/14/22 05/12/22 Unknown Rx tabs ondansetron 4 mg disintegrating 4 mg PO Q6H PRN Nausea And Vomiting 05/12/22 05/12/22 Unknown History tablet Allergies Allergy/AdvReac Type Severity Reaction Status Date / Time azithromycin [From Zithromax] Allergy Unknown Unknown Verified 05/12/22 15:32 ceftriaxone Allergy Unknown Unknown Verified 05/12/22 15:32 codeine Allergy Unknown Unknown Verified 05/12/22 15:32 hydrocodone Allergy Unknown Unknown Verified 05/12/22 15:32 Penicillins Allergy Unknown Unknown Verified 05/12/22 15:32 PFSH Acute PFSH: Medical History Cholelithiasis Diabetes mellitus History of non-ST elevation myocardial infarction (NSTEMI) Hypotension Neuropathy Peripheral Vascular Disease Renal failure S/P angiogram of extremity Surgical History History of detached retina repair History of testicular surgery S/P arteriovenous (AV) fistula repair S/P hip arthroscopy S/P LASIK surgery Status post amputation of leg Family History Other Cancer Diabetes Heart disease Hypertension Stroke Social History Smoking and tobacco status: current every day smoker cigarettes Packs smoked per day: 0.5 Vitals/I&O/Wt Last Vital Signs Temp 98.4 F 05/12/22 11:18 Pulse 83 05/12/22 15:00 Resp 22 H 05/12/22 15:00 BP 99/70 05/12/22 15:00 Pulse Ox 90 05/12/22 15:00 O2 Del Method 05/12/22 15:00 05/12/22 05/12/22 05/12/22 06:59 14:59 22:59 Intake Total 100 / 100 Balance 100 / 100 Weight last 48 hrs Weight 81.193 kg Data : 05/12/22 12:56 05/12/22 12:56 Coding Level of Care Code Acute Glass Robot Operator for Meka Fischer
--- NOTE | 2022-05-12 17:11 | PC.NURSE ---
pt does not produce urine, held lasix per Dr. Ortega
--- NOTE | 2022-05-12 17:29 | P.HP_ITS ---
Providers/Chief Complaint Primary Care Provider: Julius Aguila DO Chief Complaint: SOB/ COUGH X 1 WEEK History of Present Illness Neal Otto is a 46 year old male with a past medical history of end-stage renal disease on dialysis, CAD, peripheral vascular disease, pulm recent hospitalization left knee amputation, recent hospitalization for CAD with complete occlusion of RCA and circumflex, who mid LAD heavily calcified, with un successful balloon angioplasty, recommended arthrectomy however patient opted medical management, he is managed by Dr. Hernández as outpatient for his stump site, he was discharged on antibiotics recently for concerns for cholecystitis, no surgical intervention recommended, who presents [facility] as he has been feeling short of breath, he tells me he has trouble catching his breath, he denies any fevers, no chills, no chest pain, no palpitations, no lightheadedness, dizziness. His only complaint is trouble catching his breath, Review of Systems Const: Reports: chills; Denies: fever(s) Card: Denies: chest pain Resp: Reports: dyspnea and non-productive cough GI: Denies: abdominal pain, nausea or vomiting Medications/Allergies Home Medications Medication Instructions Recorded Confirmed Last Taken Type aspirin 81 mg tablet,delayed 81 mg PO BEDTIME 12/03/19 05/12/22 04/06/22 History release (Adult Low Dose Aspirin) vitamin E (dl, acetate) 180 mg 400 unit PO BEDTIME 12/03/19 05/12/22 04/10/22 History (400 unit) capsule midodrine 10 mg tablet 10 mg PO TID #270 tabs 08/18/21 05/12/22 04/11/22 Rx nitroglycerin 0.4 mg sublingual 0.4 mg sublingual Q5M PRN chest 02/14/22 05/12/22 Unknown Rx tablet (Nitrostat) pain #25 tabs sucroferric oxyhydroxide 500 mg 500 mg PO TIDWM 02/14/22 05/12/22 04/10/22 History chewable tablet (Velphoro) clopidogrel 75 mg tablet 75 mg PO BEDTIME 03/28/22 05/12/22 04/06/22 History polyethylene glycol 3350 17 gram 17 g PO DAILY 04/07/22 05/12/22 04/10/22 History oral powder packet (Miralax) acetaminophen 325 mg tablet 650 mg PO Q6H PRN Mild Pain #100 04/14/22 05/12/22 Unknown Rx tabs ondansetron 4 mg disintegrating 4 mg PO Q6H PRN Nausea And Vomiting 05/12/22 05/12/22 Unknown History tablet Allergies Allergy/AdvReac Type Severity Reaction Status Date / Time azithromycin [From Zithromax] Allergy Unknown Unknown Verified 05/12/22 15:32 ceftriaxone Allergy Unknown Unknown Verified 05/12/22 15:32 codeine Allergy Unknown Unknown Verified 05/12/22 15:32 hydrocodone Allergy Unknown Unknown Verified 05/12/22 15:32 Penicillins Allergy Unknown Unknown Verified 05/12/22 15:32 PFSH Acute PFSH: Medical History Cholelithiasis Diabetes mellitus History of non-ST elevation myocardial infarction (NSTEMI) Hypotension Neuropathy Peripheral Vascular Disease Renal failure S/P angiogram of extremity Surgical History History of detached retina repair History of testicular surgery S/P arteriovenous (AV) fistula repair S/P hip arthroscopy S/P LASIK surgery Status post amputation of leg Family History Other Cancer Diabetes Heart disease Hypertension Stroke Social History Smoking and tobacco status: current every day smoker cigarettes Packs smoked per day: 0.5 Vitals/I&O/Wt Last Vital Signs Temp 98.4 F 05/12/22 11:18 Pulse 87 05/12/22 17:00 Resp 22 H 05/12/22 15:00 BP 101/73 05/12/22 17:00 Pulse Ox 97 05/12/22 17:00 O2 Del Method 05/12/22 17:00 05/12/22 05/12/22 05/12/22 06:59 14:59 22:59 Intake Total 100 / 100 Balance 100 / 100 Weight last 48 hrs Weight 81.193 kg Physical Exam Const: COMMON NORMALS: no acute distress and patient oriented x3 Eye: COMMON NORMALS: Equal, round and reactive pupils present and EOMs intact bilaterally Neck/C-Spine: COMMON NORMALS: no lymphadenopathy Resp: COMMON NORMALS: normal respiratory effort, No retractions and No use of accessory muscles AUSCULTATION: clear to auscultation bilaterally Cardio: COMMON NORMALS: regular rate, regular rhythm, S1 normal heart sound present and S2 normal heart sound present RATE: regular rate RHYTHM: regular rhythm HEART SOUNDS: S1 normal heart sound present and S2 normal heart sound present GI: COMMON NORMALS: Normal to inspection, nondistended, normoactive bowel sounds present, Soft to palpation, non-tender, No hepatosplenomegaly present, no masses and no bruits PALPATION: Yes Soft to palpation Extremity: COMMON NORMALS: no pedal edema NARRATIVE EXTREMITY EXAM: r below knee amputation l below knee amputation Neuro: COMMON NORMALS: patient oriented x3 Psych: COMMON NORMALS: mental status grossly normal Data : 05/12/22 12:56 05/12/22 12:56 A&P Assessment and plan (1) Pneumonia: Qualifiers: Laterality: right Lung location: lower lobe of lung Pneumonia type: due to unspecified organism Qualified Code(s): J18.9 - Pneumonia, unspecified organism (2) End stage chronic kidney disease: (3) Hypoxia: (4) CAD (coronary artery disease): (5) ESRD (end stage renal disease): (6) Peripheral Vascular Disease: Plan Penumonia -Chest x-ray shows atelectasis and infiltrate in the right lung base -Pro-Dieudonne 6.34, CRP 188.1 -Not requiring oxygen, afebrile -Plan -We will obtain CT of the chest -His mom reports severe allergy to vancomycin, 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 Discussed with cardiology results are as follows: RCA and circumflex complete total occlusion LAD mid vessel lesion heavily calcified 95%.? Attempted balloon angioplasty but not very successful.? Patient potentially needs arthrectomy.? Pt opted for medical management at this time. -aspirin, plavix, nitro Attestations Medical Necessity Statement*: patient requires hospitalization for pna, outpatient for obs, less than 2 midnights Coding Level of Care Code Acute Ballpoint Pen Assembly Machine Operator for Chg Fwd Exam Comprehensive Diagnoses Pneumonia J18.9 Laterality: right Lung location: lower lobe of lung Pneumonia type: due to unspecified organism End stage chronic kidney disease N18.6 Hypoxia R09.02 CAD (coronary artery disease) I25.10 ESRD (end stage renal disease) N18.6 Peripheral Vascular Disease I73.9
[2022-05-12 17:32] LABS: Procalcitonin 4.34 ng/mL (0-0.5)
--- NOTE | 2022-05-12 18:05 | CTR_ITS ---
PROCEDURE INFORMATION: Exam: CT Chest Without Contrast; Diagnostic Exam date and time: 05/12/2022 6:24 PM Age: 46 years old Clinical indication: Shortness of breath; Additional info: SOB TECHNIQUE: Imaging protocol: Diagnostic computed tomography of the chest without contrast. Radiation optimization: All CT scans at this facility use at least one of these dose optimization techniques: automated exposure control; mA and/or kV adjustment per patient size (includes targeted exams where dose is matched to clinical indication); or iterative reconstruction. COMPARISON: CT angio chest PE protcl [id number] 04/15/2022 5:24 PM RADIATION DOSE METRICS: Total DLP (mGy-cm): 594.61 FINDINGS: Lungs: Patchy right lower lobe pneumonic infiltrate. Pleural spaces: Moderate right pleural effusion. Heart: Cardiomegaly. Coronary artery atherosclerotic calcifications. Lymph nodes: Scattered prominent mediastinal lymph nodes measuring up to 10 mm, nonspecific. Vasculature: Unremarkable. No aortic aneurysm. Gallbladder and bile ducts: Calcified biliary sludge and cholelithiasis. Kidneys and ureters: Chronic appearing renal atrophy bilaterally. Intraperitoneal space: Abdominal ascites. Omentum appears somewhat edematous, perhaps related to ascites, omental caking as with metastatic disease may also be a consideration for this appearance depending on the clinical scenario. Bones/joints: Unremarkable. No acute fracture. Soft tissues: Unremarkable. CT/CT chest wo con [id number] IMPRESSION: 1. Patchy right lower lobe pneumonic infiltrate. 2. Abdominal ascites. 3. Calcified biliary sludge and cholelithiasis. 4. Omentum appears somewhat edematous, perhaps related to ascites, omental caking as with metastatic disease may also be a consideration for this appearance depending on the clinical scenario. 5. Chronic appearing renal atrophy bilaterally. 6. Cardiomegaly. 7. Coronary artery atherosclerotic calcifications. 8. Moderate right pleural effusion. 9. Scattered prominent mediastinal lymph nodes measuring up to 10 mm, nonspecific.
[2022-05-12 18:10] LABS: C Reactive Protein 188.1 mg/L (0.0-4.9)
[2022-05-12 18:16] LABS: Procalcitonin 6.34 ng/mL (0-0.5)
[2022-05-12 18:46] LABS: Troponin(5th) Baseline 150 ng/L (0-15)
--- NOTE | 2022-05-12 18:56 | USCV_ITS ---
Neal Otto Age: 46 Gender: M : 1975 Exam Date: 05/12/2022 19:07 Ordering Phys: Carloz Ortega MD Technologist: Zoltan Ngo Exam Location[place] [facility] [place] Indication: Shortness of breath BP: 94 / 68 HR: 67 Rhythm: Sinus Technical Quality: Adequate MEASUREMENTS (Male / Female) Normal Values 2D ECHO LV Diastolic Diameter PLAX 5.4 cm 4.2 - 5.9 / 3.9 - 5.3 cm LV Systolic Diameter PLAX 4.3 cm IVS Diastolic Thickness 1.0 cm 0.6 - 1.0 / 0.6 - 0.9 cm IVS Systolic Thickness 1.5 cm LVPW Diastolic Thickness 0.8 cm 0.6 - 1.0 / 0.6 - 0.9 cm LVPW Systolic Thickness 1.0 cm LVOT Diameter 2.0 cm LV Ejection Fraction 2D Teich 26.3 % LV Ejection Fraction MOD 2C 27.0 % LV Ejection Fraction 2C AL 26.2 % LA Diameter 3.8 cm M-MODE Aortic Annulus Diameter 3.0 cm LA Ao Ratio MM 1.5 MV E Point Septal Separation 1.4 cm FINDINGS Left Ventricle Dilated left ventricle. Severely decreased left ventricular systolic function. Left ventricular ejection fraction is estimated at 25 %. There is severe global hypokinesis more so in apical hernandez. Right Ventricle Normal right ventricular size and systolic function. Right Atrium Normal right atrial size. Left Atrium Mildly to moderately increased left atrial size. Mitral Valve Mildly thickened mitral valve. Aortic Valve Aortic valve not well visualized. Tricuspid Valve Structurally normal tricuspid valve. Pulmonic Valve Pulmonic valve not well visualized. Pericardium No pericardial effusion. Aorta Aorta not well visualized. IVC Inferior vena cava not visualized. CONCLUSIONS 1. Dilated left ventricle. Severely decreased left ventricular systolic function. Left ventricular ejection fraction is estimated at 25 %. There is severe global hypokinesis more so in apical hernandez. 2. When compared to previous study dated 04/16/2022, there has been no significant change. Agustina Lawler MD (Electronically Signed) Final Date: 13 May 2022 09:53 S
--- NOTE | 2022-05-12 19:46 | ECG_ITS ---
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 Measurements Intervals [place] Rate: 87 P: 15 SD: 202 QRS: 20 QRSD: 141 T: 131 QT: 399 QTc: 481 Interpretive Statements SINUS RHYTHM LEFT BUNDLE BRANCH BLOCK [120+ ms QRS DURATION, 80+ ms Q/S IN V1/V2, 85+ ms R IN I/aVL/V5/V6] Compared to ECG 05/12/2022 11:18:29 No significant changes Electronically Signed On 05-13-2022 10:56:30 CDT by Agustina Lawler M.D. [id number]
[2022-05-12 20:32] LABS: Estmated Average Glucose 88; Hemoglobin A1C 4.7 % (4.0-6.0)
[2022-05-12] MEDS: midodrine 5 mg TABLET 10 MG PO (20:49)
[2022-05-12] MEDS: NON-FORMULARY MEDICATION (Sucroferric Oxyhydroxide [Velphoro] 500 mg tablet,chewable) 500 EACH PO (20:50)
[2022-05-12] MEDS: aspirin 81 mg EC Tablet PO (20:50)
[2022-05-12] MEDS: clopidogrel 75 mg Tablet PO (20:50)
[2022-05-12] MEDS: meropenem 1,000 MG in sodium chloride 0.9% (plus) 50 ML 100 MG IV (20:52)
[2022-05-12 20:56] LABS: Troponin 5 6HR 167.9 ng/L (0-15); Troponin 5 6HR Delta 17.9 ng/L (0-12)
[2022-05-12 21:21] LABS: Glucose Point of Care 149 mg/dL (70-110)
[2022-05-12] MEDS: linezolid premix 600 MG/300 ML PREMIX 300 MG IV (21:28)
[2022-05-12] MEDS: ipratropium-albuterol 3 mL Neb INHALATION (21:43)
--- NOTE | 2022-05-12 23:46 | ECG_ITS ---
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 Measurements Intervals [place] Rate: 81 P: 28 AR: 208 QRS: 20 QRSD: 146 T: 120 QT: 417 QTc: 487 Interpretive Statements SINUS RHYTHM LEFT BUNDLE BRANCH BLOCK [120+ ms QRS DURATION, 80+ ms Q/S IN V1/V2, 85+ ms R IN I/aVL/V5/V6] Compared to ECG 05/12/2022 20:17:18 No significant changes Electronically Signed On 05-13-2022 10:55:51 CDT by Agustina Lawler M.D. [id number]
[2022-05-13] VITALS (15 sets, daily range): BP systolic 90–104; BP diastolic 56–69; PULSE 77–111; RESP 15–25; TEMP 36.7–37.1; O2SAT 78–99
[2022-05-13 05:30] LABS: Basophils # 0.1 10^3/uL (0.0-0.1); Basophils % 0.8 %; Eosinophils # 0.1 10^3/uL (0.0-0.8); Eosinophils % 0.5 %; Hematocrit 42.2 % (42.0-52.0); Hemoglobin 12.8 g/dL (11.7-16.6); Lymphocytes # 1.6 10^3/uL (0.8-4.8); Lymphocytes % 11.7 %; Mean Corpuscular HGB Conc 30.3 g/dL (30.0-36.0); Mean Corpuscular Hemoglobin 31.4 pg (28.0-34.0); Mean Corpuscular Volume 103.7 fl (80-94); Mean Platelet Volume 10.2 fL (7.4-10.4); Monocytes # 1.6 10^3/uL (0.2-0.9); Monocytes % 11.5 %; Neutrophils # 10.11 10^3/uL (1.8-7.7); Neutrophils % 74.7 %; Nucleated Red Blood Cells % 0 %; Platelet Count 150 10^3/cmm (130-400); Red Blood Count 4.07 10^6/uL (4.1-5.3); White Blood Count 13.5 10^3/uL (4.0-10.0)
[2022-05-13 05:57] LABS: Blood Urea Nitrogen 35 mg/dL (6-20); C Reactive Protein 259.3 mg/L (0.0-4.9); Calcium 9.4 mg/dL (8.5-10.5); Carbon Dioxide 33 mmol/L (22-29); Chloride 83 mmol/L (98-107); Glomerular Filtration Rate 10.6 mL/min (90-130); Glucose 102 mg/dL (65-115); Magnesium 2.3 mg/dL (1.7-2.3); Osmolality Calculated 278 mOsm/kg (285-295); Sodium 130 mmol/L (136-145)
[2022-05-13 07:35] LABS: Glucose Point of Care 118 mg/dL (70-110)
[2022-05-13] MEDS: ipratropium-albuterol 3 mL Neb INHALATION ×2 (07:35→11:32)
[2022-05-13] MEDS: midodrine 5 mg TABLET 10 MG PO ×4 (08:15→20:13)
[2022-05-13] MEDS: NON-FORMULARY MEDICATION (Sucroferric Oxyhydroxide [Velphoro] 500 mg tablet,chewable) 500 EACH PO ×3 (08:16→17:13)
[2022-05-13] MEDS: linezolid premix 600 MG/300 ML PREMIX 300 MG IV ×2 (08:16→20:09)
[2022-05-13] MEDS: polyethylene glycol 3350 Pkt 17 gm PO (08:33)
[2022-05-13] MEDS: meropenem 1,000 MG in sodium chloride 0.9% (plus) 50 ML 100 MG IV ×2 (09:49→19:34)
[2022-05-13 11:07] LABS: Glucose Point of Care 171 mg/dL (70-110)
[2022-05-13] MEDS: heparin 5,000 unit/mL INJ 1 mL IV (11:42)
[2022-05-13] MEDS: heparin drip 25,000 UNIT/500 ML PREMIX 22 UNIT IV (11:43)
--- NOTE | 2022-05-13 12:07 | P.CONIM_ITS ---
Providers/Reason For Consult Consulting Physician/Specialty*: Dr. Lawler, Cardiology Reason for Consult*: Elevated troponin, PNA, h/o CAD Attending Physician: Carloz Ortega MD Primary Care Provider: Julius Aguila DO History of Present Illness History of Present Illness Neal Otto is a 46 year old male with past medical history of coronary artery disease with prior px LAD stent and [facility] last month with severe mid LAD stenosis s/p balloon angioplasty.? Stent could not be advanced as vessel ?was heavily calcified, peripheral artery disease with bilateral extremity amputations, end- stage renal disease on dialysis presented to the hospital for feeling shortness of breath, coughing bouts and pleuritic chest pain in right axillary region and back. He denies any fevers, chills, palpitations, lightheadedness.? EKG with sinus rhythm, LBBB (unchanged). CXR showed R sided infiltrates and right pleural effusion. ? Troponin T 150-> 168-->259. Review of Systems General: Reports: 10 or more systems reviewed and unremarkable except in HPI and below Const: Reports: chills; Denies: fever(s) Card: Reports: chest pain (pleuritic); Denies: lightheadedness or orthopnea Resp: Reports: dyspnea and non-productive cough GI: Denies: abdominal pain, nausea or vomiting Medications/Allergies Home Medications Medication Instructions Recorded Confirmed Last Taken Type aspirin 81 mg tablet,delayed 81 mg PO BEDTIME 12/03/19 05/12/22 04/06/22 History release (Adult Low Dose Aspirin) vitamin E (dl, acetate) 180 mg 400 unit PO BEDTIME 12/03/19 05/12/22 04/10/22 History (400 unit) capsule midodrine 10 mg tablet 10 mg PO TID #270 tabs 08/18/21 05/12/22 04/11/22 Rx nitroglycerin 0.4 mg sublingual 0.4 mg sublingual Q5M PRN chest 02/14/22 05/12/22 Unknown Rx tablet (Nitrostat) pain #25 tabs sucroferric oxyhydroxide 500 mg 500 mg PO TIDWM 02/14/22 05/12/22 04/10/22 History chewable tablet (Velphoro) clopidogrel 75 mg tablet 75 mg PO BEDTIME 03/28/22 05/12/22 04/06/22 History polyethylene glycol 3350 17 gram 17 g PO DAILY 04/07/22 05/12/22 04/10/22 History oral powder packet (Miralax) acetaminophen 325 mg tablet 650 mg PO Q6H PRN Mild Pain #100 04/14/22 05/12/22 Unknown Rx tabs ondansetron 4 mg disintegrating 4 mg PO Q6H PRN Nausea And Vomiting 05/12/22 05/12/22 Unknown History tablet Allergies Allergy/AdvReac Type Severity Reaction Status Date / Time azithromycin [From Zithromax] Allergy Unknown Unknown Verified 05/12/22 15:32 ceftriaxone Allergy Unknown Unknown Verified 05/12/22 15:32 codeine Allergy Unknown Unknown Verified 05/12/22 15:32 hydrocodone Allergy Unknown Unknown Verified 05/12/22 15:32 Penicillins Allergy Unknown Unknown Verified 05/12/22 15:32 Current Medications Generic Name Dose Route Start Last Admin Trade Name Freq PRN Reason Stop Dose Admin Albuterol/Ipratropium 3 ml 05/12/22 20:00 05/13/22 11:32 Ipratropium-Albuterol 3 Ml Neb INHALATION 3 ml QID.RESPIRATORY CHANEL Administration Aspirin 81 mg 05/12/22 21:00 05/12/22 20:50 Aspirin 81 Mg Ec Tablet PO 81 mg BEDTIME CHANEL Administration Clopidogrel Bisulfate 75 mg 05/12/22 21:00 05/12/22 20:50 Clopidogrel 75 Mg Tablet PO 75 mg BEDTIME CHANEL Administration Heparin Sodium (Porcine) 5,000 unit 05/12/22 19:30 05/13/22 06:36 Heparin 5,000 Unit/Ml Inj 1 Ml SUBCUT Not Given Q12H [facility] Heparin Sodium (Porcine) 0 unit 05/13/22 09:57 05/13/22 11:42 Heparin 5,000 Unit/Ml Inj 1 Ml IV 4,000 unit PRN PRN Administration Heparin weight-base protocol Protocol Linezolid 600 mg in 300 mls @ 300 mls/hr 05/12/22 20:00 05/13/22 09:26 Zyvox Premix IV Infused Q12H CHANEL Infusion Protocol Meropenem 1,000 mg/ Sodium 50 mls @ 100 mls/hr 05/12/22 20:00 05/13/22 10:43 Chloride IV Infused Q12H CHANEL Infusion Heparin Sodium/Sodium Chloride 25,000 unit in 500 mls @ 0 mls/hr 05/13/22 10:00 05/13/22 11:43 Heparin Drip IV 13.55 unit/kg/hr .Q0M CHANEL 22 mls/hr Administration Protocol Per Protocol Midodrine 10 mg 05/12/22 21:00 05/13/22 08:15 Midodrine 5 Mg Tablet PO 10 mg TID CHANEL Administration Non-Formulary Medication 500 mg 05/12/22 19:15 05/13/22 08:16 Sucroferric Oxyhydroxide [Velphoro] PO 500 mg TIDWM CHANEL Administration Non-Formulary Medication 400 unit 05/12/22 21:00 05/12/22 21:05 Vitamin E (Dl, Acetate) PO Not Given BEDTIME CHANEL Polyethylene Glycol 17 gm 05/13/22 09:00 05/13/22 08:33 Polyethylene Glycol 3350 Pkt 17 Gm PO 17 gm DAILY CHANEL Administration Senna/Docusate Sodium 1 tab 05/13/22 09:00 05/13/22 08:16 Sennosides-Docusate Tablet PO Not Given DAILY CHANEL PFSH Acute PFSH: Medical History Cholelithiasis Diabetes mellitus History of non-ST elevation myocardial infarction (NSTEMI) Hypotension Neuropathy Peripheral Vascular Disease Renal failure S/P angiogram of extremity Surgical History History of detached retina repair History of testicular surgery S/P arteriovenous (AV) fistula repair S/P hip arthroscopy S/P LASIK surgery Status post amputation of leg Family History Other Cancer Diabetes Heart disease Hypertension Stroke Social History Smoking and tobacco status: current every day smoker cigarettes Packs smoked per day: 0.5 Vitals/I&O/Wt Last Vital Signs Temp 98.4 F 05/13/22 07:46 Pulse 103 H 05/13/22 12:00 Resp 17 05/13/22 12:00 BP 90/69 05/13/22 12:00 Pulse Ox 93 05/13/22 12:00 O2 Del Method 05/13/22 12:00 O2 Flow Rate 1 05/13/22 07:37 05/12/22 05/13/22 05/13/22 22:59 06:59 14:59 Intake Total 50 / 150 550 / 700 590 / 590 Balance 50 / 150 550 / 700 590 / 590 Weight last 48 hrs Weight 179 lb Physical Exam Narrative: Gen: sitting in bed in painful distress (in LE) HEENT: + pallor, muddy sclera RS: Decreased breath sounds R>L, +rhonchi CVS: S1, S2 regular, tachycardia+; No murmur or gallop EXt: B/L BKA 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 Abnormal myocardial perfusion imaging with large sized prior infarct noted ?in the LAD territory. There is large sized infarcts with thor-infarct ischemia ?noted in the RCA and Left circumflex artery territory. ?2. LV systolic function is severely reduced. [facility] (04/19/22) Diagnostic Findings ? * INDICATION: Patient has been having epigastric discomfort radiating to chest that has worsened over the last few days. Stress test is abnormal. ? * RCA is non-dominant vessel. Appears to be subtotally occluded proximally with collateral supply. Proximal Right Coronary Artery: subtotal occlusion, STEPAN: 1 flow. ? * Left Main has no significant disease. ? * Proximal LAD has patent stents. Mid Left Anterior Descending: severe, heavily calcified? 90% stenosis, STEPAN: 3 flow. Distal vessel has diffuse disease. ? * Mid Circumflex: total occlusion, STEPAN: 0 flow. ? * First Obtuse Marginal Branch Segment: total occlusion, STEPAN: 0 flow. ? * Coronary angiography shows left dominance. PCI Status: ? ? Elective PCI Indication: ? ? Other Interventional Findings ? * Mid Left Anterior Descending:? 90% stenosis treated with a AB TREK 2.25X12 RX BALLOON. 70% residual stenosis, STEPAN: 3 flow. ? * PROCEDURE DETAIL: We engaged left main artery with XB 3.0 guide catheter. IV heparin was administered to maintain ACT above 250 S. We used 0.014 run-through guidewire to cross mid LAD stenosis and was put in distal vessel. 2.25 x 12 mm semicompliant balloon was used to dilate the stenosis. We attempted to put stent however stent would not cross. Vessel was heavily calcified. We dilated the vessel again with same balloon. Given difficulty crossing with stent, we decided to abort further attempts. Guidewire and guide catheter were removed.? Final angiogram showed STEPAN-3 flow. Stenosis at improved minimally.. Conclusions ? 1. 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 Subtotal occlusion of nondominant small sized RCA ? 2. with collateral blood flow.. ? 3. Severe mid LAD stenosis s/p balloon angioplasty.? Stent could not be advanced.? Heavily calcified vessel. It will need arthrectomy if revascularization is planned. It will be high risk procedure and will need LV support device and high risk of complications.? Other option will be to pursue medical therapy. Options will be discussed with patient and family.. ? 4. Mid Left Anterior Descending was treated with a Balloon. TTE (05/13/22) CONCLUSIONS ?1. Dilated left ventricle. Severely decreased left ventricular ?systolic function. Left ventricular ejection fraction is ?estimated at 25 %. There is severe global hypokinesis more so in ?apical hernandez. ?2. When compared to previous study dated 04/16/2022, there has ?been no significant change. A&P Assessment and plan (1) Pneumonia: On abx per primary team Qualifiers: Laterality: right Lung location: lower lobe of lung Pneumonia type: du e to unspecified organism Qualified Code(s): J18.9 - Pneumonia, unspecified organism (2) NSTEMI (non-ST elevated myocardial infarction): On heparin gtt, May continue for next 48 hr or so -echo with severely decreased LV function unchanged when compared to previous study -on ASA, plavix; will consider adding beta theodore based on BP -Not a candidate for any interventions. 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
--- NOTE | 2022-05-13 12:57 | P.CONIM_ITS ---
Providers/Reason For Consult Consulting Physician/Specialty*: Emergency department Reason for Consult*: End-stage renal disease Attending Physician: Carloz Ortega MD Primary Care Provider: Julius Aguila DO History of Present Illness History of Present Illness Neal Otto is a 46 year old male with past medical history of end-stage renal disease on hemodialysis with TTS schedule, hypertension , coronary artery disease with prior known blockages, right below-knee amputation, peripheral vascular disease presented to the emergency department complaining of cough and shortness of breath. He was found to have pneumonia. Troponinn ashley elevated. K was 5.3 . BP was borderline low with systolic in 90's he takes midodrine prior to HD Review of Systems Const: Reports: chills; Denies: fever(s) Card: Denies: chest pain Resp: Reports: dyspnea and non-productive cough GI: Denies: abdominal pain, nausea or vomiting Medications/Allergies Home Medications Medication Instructions Recorded Confirmed Last Taken Type aspirin 81 mg tablet,delayed 81 mg PO BEDTIME 12/03/19 05/12/22 04/06/22 History release (Adult Low Dose Aspirin) vitamin E (dl, acetate) 180 mg 400 unit PO BEDTIME 12/03/19 05/12/22 04/10/22 History (400 unit) capsule midodrine 10 mg tablet 10 mg PO TID #270 tabs 08/18/21 05/12/22 04/11/22 Rx nitroglycerin 0.4 mg sublingual 0.4 mg sublingual Q5M PRN chest 02/14/22 05/12/22 Unknown Rx tablet (Nitrostat) pain #25 tabs sucroferric oxyhydroxide 500 mg 500 mg PO TIDWM 02/14/22 05/12/22 04/10/22 His tory chewable tablet (Velphoro) clopidogrel 75 mg tablet 75 mg PO BEDTIME 03/28/22 05/12/22 04/06/22 History polyethylene glycol 3350 17 gram 17 g PO DAILY 04/07/22 05/12/22 04/10/22 History oral powder packet (Miralax) acetaminophen 325 mg tablet 650 mg PO Q6H PRN Mild Pain #100 04/14/22 05/12/22 Unknown Rx tabs ondansetron 4 mg disintegrating 4 mg PO Q6H PRN Nausea And Vomiting 05/12/22 05/12/22 Unknown History tablet Allergies Allergy/AdvReac Type Severity Reaction Status Date / Time azithromycin [From Zithromax] Allergy Unknown Unknown Verified 05/12/22 15:32 ceftriaxone Allergy Unknown Unknown Verified 05/12/22 15:32 codeine Allergy Unknown Unknown Verified 05/12/22 15:32 hydrocodone Allergy Unknown Unknown Verified 05/12/22 15:32 Penicillins Allergy Unknown Unknown Verified 05/12/22 15:32 Current Medications Generic Name Dose Route Start Last Admin Trade Name Freq PRN Reason Stop Dose Admin Albuterol/Ipratropium 3 ml 05/12/22 20:00 05/13/22 11:32 Ipratropium-Albuterol 3 Ml Neb INHALATION 3 ml QID.RESPIRATORY CHANEL Administration Aspirin 81 mg 05/12/22 21:00 05/12/22 20:50 Aspirin 81 Mg Ec Tablet PO 81 mg BEDTIME CHANEL Administration Clopidogrel Bisulfate 75 mg 05/12/22 21:00 05/12/22 20:50 Clopidogrel 75 Mg Tablet PO 75 mg BEDTIME CHANEL Administration Heparin Sodium (Porcine) 5,000 unit 05/12/22 19:30 05/13/22 06:36 Heparin 5,000 Unit/Ml Inj 1 Ml SUBCUT Not Given Q12H [facility] Heparin Sodium (Porcine) 0 unit 05/13/22 09:57 05/13/22 11:42 Heparin 5,000 Unit/Ml Inj 1 Ml IV 4,000 unit PRN PRN Administration Heparin weight-base protocol Protocol Linezolid 600 mg in 300 mls @ 300 mls/hr 05/12/22 20:00 05/13/22 09:26 Zyvox Premix IV Infused Q12H CHANEL Infusion Protocol Meropenem 1,000 mg/ Sodium 50 mls @ 100 mls/hr 05/12/22 20:00 05/13/22 10:43 Chloride IV Infused Q12H CHANEL Infusion Heparin Sodium/Sodium Chloride 25,000 unit in 500 mls @ 0 mls/hr 05/13/22 10:00 05/13/22 11:43 Heparin Drip IV 13.55 unit/kg/hr .Q0M CHANEL 22 mls/hr Administration Protocol Per Protocol Midodrine 10 mg 05/12/22 21:00 05/13/22 08:15 Midodrine 5 Mg Tablet PO 10 mg TID CHANEL Administration Non-Formulary Medication 500 mg 05/12/22 19:15 05/13/22 12:08 Sucroferric Oxyhydroxide [Velphoro] PO 500 mg TIDWM CHANEL Administration Non-Formulary Medication 400 unit 05/12/22 21:00 05/12/22 21:05 Vitamin E (Dl, Acetate) PO Not Given BEDTIME CHANEL Polyethylene Glycol 17 gm 05/13/22 09:00 05/13/22 08:33 Polyethylene Glycol 3350 Pkt 17 Gm PO 17 gm DAILY CHANEL Administration Senna/Docusate Sodium 1 tab 05/13/22 09:00 05/13/22 08:16 Sennosides-Docusate Tablet PO Not Given DAILY CHANEL PFSH Acute PFSH: Medical History Cholelithiasis Diabetes mellitus History of non-ST elevation myocardial infarction (NSTEMI) Hypotension Neuropathy Peripheral Vascular Disease Renal failure S/P angiogram of extremity Surgical History History of detached retina repair History of testicular surgery S/P arteriovenous (AV) fistula repair S/P hip arthroscopy S/P LASIK surgery Status post amputation of leg Family History Other Cancer Diabetes Heart disease Hypertension Stroke Social History Smoking and tobacco status: current every day smoker cigarettes Packs smoked per day: 0.5 Vitals/I&O/Wt Last Vital Signs Temp 98.4 F 05/13/22 07:46 Pulse 103 H 05/13/22 12:00 Resp 17 05/13/22 12:00 BP 90/69 05/13/22 12:00 Pulse Ox 93 05/13/22 12:00 O2 Del Method 05/13/22 12:00 O2 Flow Rate 1 05/13/22 07:37 05/12/22 05/13/22 05/13/22 22:59 06:59 14:59 Intake Total 50 / 150 550 / 700 590 / 590 Balance 50 / 150 550 / 700 590 / 590 Weight last 48 hrs Weight 81.193 kg Physical Exam Const: COMMON NORMALS: no acute distress Eye: COMMON NORMALS: EOMs intact bilaterally Resp: COMMON NORMALS: normal respiratory effort, No retractions and No use of accessory muscles Cardio: COMMON NORMALS: regular rate RATE: regular rate GI: COMMON NORMALS: Normal to inspection, nondistended, normoactive bowel sounds present, Soft to palpation, non-tender, No hepatosplenomegaly present, no masses and no bruits PALPATION: Yes Soft to palpation and Yes No hepatosplenomegaly present Extremity: COMMON NORMALS: no pedal edema NARRATIVE EXTREMITY EXAM: r below knee amputation l below knee amputation Psych: COMMON NORMALS: mental status grossly normal Data : 05/13/22 04:50 05/13/22 04:50 Micro: Microbiology 05/12/22 17:35 Blood Culture - Preliminary Blood SPECIMEN COLLECTED 05/12/22 17:42 Blood Culture - Preliminary Blood SPECIMEN COLLECTED A&P Assessment and plan (1) ESRD (end stage renal disease): Plan 1. ESRD: On hemodialysis per, TTS schedule as outpatient, last HD was on . Patient scheduled for routine dialysis today-in the setting of possible acute coronary syndrome, will do gentle UF today , avoid hypotension . Will order midodrine prior to HD 2. Hyperkalemia: Should improve with HD, placed on low K diet 3. ACS: Elevated troponin, cardiology evaluating patient, patient has known prior blockages and was opted for medical management at that time. 4. Peripheral vascular disease 5. History of BKA Patient evaluated using audiovisual cart. 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
--- NOTE | 2022-05-13 13:32 | PC.NURSE ---
Patient reports that his heart has felt funny sense starting the heparin gtt. Denies any chest pain. Patient states that he just has an overall feeling of un-wellness. Blood pressure is low, which is not new. MAP is 64. Physician notified of all issues stated above. No new orders.
--- NOTE | 2022-05-13 14:16 | PM.PN ---
Subjective Subjective: Patient was seen this morning, he is sitting up to the side of the bed, denies any fevers, still having some intermittent chest pain, anterior, also pain with taking a deep breath in, no cough, no fevers, is on room air Vitals/I&O/Wt Last Vital Signs Temp 98.4 F 05/13/22 07:46 Pulse 103 H 05/13/22 12:00 Resp 17 05/13/22 12:00 BP 90/69 05/13/22 12:00 Pulse Ox 93 05/13/22 12:00 O2 Del Method 05/13/22 12:00 O2 Flow Rate 1 05/13/22 07:37 05/12/22 05/13/22 05/13/22 22:59 06:59 14:59 Intake Total 50 / 150 550 / 700 830 / 830 Balance 50 / 150 550 / 700 830 / 830 Weight last 48 hrs Weight 81.193 kg Physical Exam Const: COMMON NORMALS: no acute distress and patient oriented x3 Resp: COMMON NORMALS: normal respiratory effort, No retractions, No use of accessory muscles and clear to auscultation bilaterally AUSCULTATION: clear to auscultation bilaterally Cardio: COMMON NORMALS: regular rate, regular rhythm, S1 normal heart sound present and S2 normal heart sound present RATE: regular rate RHYTHM: regular rhythm HEART SOUNDS: S1 normal heart sound present and S2 normal heart sound present GI: COMMON NORMALS: Normal to inspection, nondistended, normoactive bowel sounds present and non-tender Neuro: COMMON NORMALS: patient oriented x3 Data : 05/13/22 04:50 05/13/22 04:50 Micro: Microbiology 05/12/22 17:35 Blood Culture - Preliminary Blood SPECIMEN COLLECTED 05/12/22 17:42 Blood Culture - Preliminary Blood SPECIMEN COLLECTED A&P Assessment and plan (1) Pneumonia: Qualifiers: Laterality: right Lung location: lower lobe of lung Pneumonia type: due to unspecified organism Qualified Code(s): J18.9 - Pneumonia, unspecified organism (2) End stage chronic kidney disease: (3) Hypoxia: (4) CAD (coronary artery disease): (5) ESRD (end stage renal disease): (6) Peripheral Vascular Disease: (7) HCAP (healthcare-associated pneumonia): (8) NSTEMI (non-ST elevated myocardial infarction): Plan health care associated [facility] -Chest x-ray shows atelectasis and infiltrate in the right lung base -Pro-Dieudonne 6.34, CRP 188.1 -Not requiring oxygen, afebrile -We will obtain CT of the chest, 1. Patchy right lower lobe pneumonic infiltrate. 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 1. 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 Subtotal occlusion of nondominant small sized RCA ? 2. with collateral blood flow.. ? 3. Severe mid LAD stenosis s/p balloon angioplasty.? Stent could not be advanced.? Heavily calcified vessel. It will need arthrectomy if revascularization is planned. It will be high risk procedure and will need LV support device and high risk of complications.? Other option will be to pursue medical therapy. Options will be discussed with patient and family.. ? 4. Mid Left Anterior Descending was treated with a Balloon. ?-Patient potentially needs arthrectomy, Pt opted for medical management -Baseline troponin 150, 6-hour 167.9, delta 17.9, BNP over 70,000 -EKG showing new left bundle branch block -Cardiac echocardiogram -?1. Dilated left ventricle. Severely decreased left ventricular ?systolic function. Left ventricular ejection fraction is ?estimated at 25 %. There is severe global hypokinesis more so in ?apical hernandez. ?2. When compared to previous study dated 04/16/2022, there has ?been no significant change. 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
[2022-05-13] MEDS: sodium chloride 0.9% 250 ML IV (15:16)
[2022-05-13 16:12] LABS: Basophils # 0.1 10^3/uL (0.0-0.1); Basophils % 0.9 %; Eosinophils # 0.1 10^3/uL (0.0-0.8); Eosinophils % 0.5 %; Hematocrit 38.7 % (42.0-52.0); Hemoglobin 11.8 g/dL (11.7-16.6); Lymphocytes # 1.4 10^3/uL (0.8-4.8); Lymphocytes % 10.5 %; Mean Corpuscular HGB Conc 30.5 g/dL (30.0-36.0); Mean Corpuscular Hemoglobin 31.2 pg (28.0-34.0); Mean Corpuscular Volume 102.4 fl (80-94); Monocytes # 1.4 10^3/uL (0.2-0.9); Monocytes % 10.7 %; Neutrophils # 9.91 10^3/uL (1.8-7.7); Neutrophils % 76.7 %; Nucleated Red Blood Cells % 0 %; Platelet Count 144 10^3/cmm (130-400); Red Blood Count 3.78 10^6/uL (4.1-5.3); Red Cell Distribution Width 16.9 % (12.1-15.1); White Blood Count 12.9 10^3/uL (4.0-10.0)
--- NOTE | 2022-05-13 16:20 | PC.NURSE ---
Transfer Note Patient transferred to ICU from [facility] via BED. Handoff received from SHAUN Griffin to CHARLA Denny. Patient oriented to environment and equipment. Covering service notified. Orders reviewed and will continue to monitor. Family and/or sales representative gas service notified.
[2022-05-13 16:28] LABS: INR 1.66 (0.8-1.2)
[2022-05-13 16:29] LABS: Partial Thromboplastin Time 41.4 SECONDS (23.9-36.7)
--- NOTE | 2022-05-13 16:35 | PC.NURSE ---
Patient arrived to ICU from [facility] at [id number]
[2022-05-13 16:41] LABS: Lactate (Lactic Acid level) 3.6 mmol/L (0.5-2.2)
[2022-05-13 16:42] LABS: Alanine Aminotransferase 6 U/L (0-41); Albumin Level 3.4 g/dL (3.5-5.2); Alkaline Phosphatase 77 U/L (40-130); Aspartate Amino Transferase 15 U/L (0-40); Blood Urea Nitrogen 39 mg/dL (6-20); Calcium 8.9 mg/dL (8.5-10.5); Carbon Dioxide 33 mmol/L (22-29); Chloride 83 mmol/L (98-107); Glomerular Filtration Rate 10.4 mL/min (90-130); Glucose 124 mg/dL (65-115); Magnesium 2.1 mg/dL (1.7-2.3); Osmolality Calculated 277 mOsm/kg (285-295); Sodium 128 mmol/L (136-145); Total Bilirubin 1.4 mg/dL (0.15-1.2); Total Protein 7.4 g/dL (6.6-8.7)
--- NOTE | 2022-05-13 17:36 | PC.NURSE ---
ordered heparin gtt. Patient refused heparin gtt due to previous experience with gtt earlier today on a different floor.
--- NOTE | 2022-05-13 17:37 | PC.NURSE ---
Patient is aware of high risk of refusal of heparin due too high risk of morbidity and mortality with diagnosis of CAD and NSTEMI discussed and educated with Dr. Ortega.
[2022-05-13] MEDS: clopidogrel 75 mg Tablet PO (20:14)
[2022-05-13] MEDS: aspirin 81 mg EC Tablet PO (20:14)
[2022-05-14] VITALS (30 sets, daily range): BP systolic 83–114; BP diastolic 58–75; PULSE 71–92; RESP 12–39; TEMP 36.6–36.9; O2SAT 84–100
[2022-05-14] MEDS: midodrine 5 mg TABLET 10 MG PO ×4 (04:07→19:46)
[2022-05-14 04:58] LABS: Basophils # 0.1 10^3/uL (0.0-0.1); Basophils % 0.9 %; Eosinophils # 0.2 10^3/uL (0.0-0.8); Eosinophils % 1.4 %; Hematocrit 39.8 % (42.0-52.0); Hemoglobin 12.1 g/dL (11.7-16.6); Lymphocytes # 1.7 10^3/uL (0.8-4.8); Lymphocytes % 14.9 %; Mean Corpuscular HGB Conc 30.4 g/dL (30.0-36.0); Mean Corpuscular Hemoglobin 30.9 pg (28.0-34.0); Mean Corpuscular Volume 101.5 fl (80-94); Mean Platelet Volume 10.5 fL (7.4-10.4); Monocytes # 1.3 10^3/uL (0.2-0.9); Monocytes % 11.6 %; Neutrophils # 7.84 10^3/uL (1.8-7.7); Neutrophils % 70.5 %; Nucleated Red Blood Cells % 0 %; Platelet Count 164 10^3/cmm (130-400); Red Blood Count 3.92 10^6/uL (4.1-5.3); Red Cell Distribution Width 16.8 % (12.1-15.1); White Blood Count 11.1 10^3/uL (4.0-10.0)
[2022-05-14 05:10] LABS: INR 1.53 (0.8-1.2)
[2022-05-14 05:17] LABS: Lactate (Lactic Acid level) 2.6 mmol/L (0.5-2.2)
[2022-05-14 05:28] LABS: Procalcitonin 12.57 ng/mL (0-0.5)
[2022-05-14 05:41] LABS: Alanine Aminotransferase 8 U/L (0-41); Albumin Level 3.4 g/dL (3.5-5.2); Alkaline Phosphatase 84 U/L (40-130); Anion Gap 20.4 (5-19); Aspartate Amino Transferase 17 U/L (0-40); Blood Urea Nitrogen 45 mg/dL (6-20); C Reactive Protein 306.2 mg/L (0.0-4.9); Calcium 9.4 mg/dL (8.5-10.5); Carbon Dioxide 32 mmol/L (22-29); Chloride 80 mmol/L (98-107); Globulin 4.3 g/dL (1.3-4.6); Glomerular Filtration Rate 9.5 mL/min (90-130); Glucose 98 mg/dL (65-115); Magnesium 2.3 mg/dL (1.7-2.3); Osmolality Calculated 276 mOsm/kg (285-295); Phosphorus 5.2 mg/dL (2.5-4.5); Potassium 5.4 mmol/L (3.5-5.1); Sodium 127 mmol/L (136-145); Total Bilirubin 1.5 mg/dL (0.15-1.2); Total Protein 7.7 g/dL (6.6-8.7)
[2022-05-14 05:53] LABS: Ferritin 2938 ng/mL (30-400)
[2022-05-14 06:27] LABS: NT Pro B Type Natriuretic Pept > 70000 pg/mL (0-125)
[2022-05-14 08:29] LABS: Glucose Point of Care 114 mg/dL (70-110)
[2022-05-14] MEDS: meropenem 1,000 MG in sodium chloride 0.9% (plus) 50 ML 100 MG IV ×2 (08:35→19:48)
[2022-05-14] MEDS: polyethylene glycol 3350 Pkt 17 gm PO (08:36)
[2022-05-14] MEDS: linezolid premix 600 MG/300 ML PREMIX 300 MG IV ×2 (08:36→19:52)
[2022-05-14] MEDS: NON-FORMULARY MEDICATION (Sucroferric Oxyhydroxide [Velphoro] 500 mg tablet,chewable) 500 EACH PO ×2 (08:38→17:12)
[2022-05-14] MEDS: heparin drip 25,000 UNIT/500 ML PREMIX 23 UNIT IV (10:32)
--- NOTE | 2022-05-14 11:46 | PM.PN ---
Subjective Subjective: TRANSFERRED TO icu Vitals/I&O/Wt Last Vital Signs Temp 98.4 F 05/14/22 08:00 Pulse 76 05/14/22 11:11 Resp 16 05/14/22 11:11 BP 113/72 05/14/22 08:00 Pulse Ox 95 05/14/22 11:11 O2 Del Method 05/14/22 11:11 O2 Flow Rate 2 05/14/22 11:11 05/13/22 05/14/22 05/14/22 23:59 06:59 14:59 Intake Total 350 / 350 Balance 350 / 350 Physical Exam Const: COMMON NORMALS: no acute distress Resp: COMMON NORMALS: normal respiratory effort, No retractions and No use of accessory muscles GI: COMMON NORMALS: Normal to inspection, nondistended, normoactive bowel sounds present Data : 05/14/22 04:10 05/14/22 04:10 Micro: Microbiology 05/12/22 17:35 Blood Culture - Preliminary Blood NEGATIVE TO DATE 05/12/22 17:42 Blood Culture - Preliminary Blood NEGATIVE TO DATE A&P Assessment and plan (1) End stage chronic kidney disease: Plan 1. ESRD: On hemodialysis per,? TTS schedule as outpatient, last HD was on .? Patient scheduled for routine dialysis today-in the setting of possible acute coronary syndrome, will do gentle UF today , avoid hypotension .? Will order midodrine prior to HD 2.? Hyperkalemia: Should improve with HD, placed on low K diet 3.? ACS: Elevated troponin, cardiology evaluating patient, patient has known prior blockages and was opted for medical management at that time. 4.? Peripheral vascular disease 5.? History of BKA Patient evaluated using audiovisual cart.? Time spent 40 minutes Attestations Medical Necessity Statement*: Patient requires hospitalization for healthcare associated, NSTEMI Coding Level of Care Code Acute Motor Mechanic for [facility] Fwd Diagnoses End stage chronic kidney disease N18.6
[2022-05-14 11:47] LABS: Glucose Point of Care 98 mg/dL (70-110)
--- NOTE | 2022-05-14 12:31 | PM.PN ---
Subjective Subjective: seen post dialysis, pleuritic pain has improved; still has cough Medications: Reviewed: Yes Vitals/I&O/Wt Last Vital Signs Temp 98.4 F 05/14/22 08:00 Pulse 76 05/14/22 11:11 Resp 16 05/14/22 11:11 BP 113/72 05/14/22 08:00 Pulse Ox 95 05/14/22 11:11 O2 Del Method 05/14/22 11:11 O2 Flow Rate 2 05/14/22 11:11 05/13/22 05/14/22 05/14/22 23:59 06:59 14:59 Intake Total 350 / 350 Balance 350 / 350 Physical Exam Narrative: Gen: sitting in bed in painful distress (in LE) HEENT: + pallor, muddy sclera RS: Decreased breath sounds R>L, +rhonchi CVS: S1, S2 regular, tachycardia+; No murmur or gallop EXt: B/L BKA 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: AAOx3, No FND Psych: Normal mood and affect PA: soft, 2+BS Data : 05/14/22 04:10 05/14/22 04:10 Micro: Microbiology 05/12/22 17:35 Blood Culture - Preliminary Blood NEGATIVE TO DATE 05/12/22 17:42 Blood Culture - Preliminary Blood NEGATIVE TO DATE A&P Assessment and plan (1) Pneumonia: On abx per primary team Qualifiers: Laterality: right Lung location: lower lobe of lung Pneumonia type: due to unspecified organism Qualified Code(s): J18.9 - Pneumonia, unspecified organism (2) NSTEMI (non-ST elevated myocardial infarction): On heparin , November D/C heaprin drip later today -echo with severely decreased LV function unchanged when compared to previous study -on ASA, plavix; will consider adding beta theodore based on BP -Not a candidate for any interventions here. Does not want to go through high risk atherectomy with Impella support. -I will sign off. -May follow up with Shahana Silva in 2 weeks (3) CAD (coronary artery disease): as above (4) ESRD (end stage renal disease): (5) Peripheral Vascular Disease: Attestations Medical Necessity Statement*: As per primary team Time Spent in Patient Care: 16 - 35 minutes Coding Level of Care Code Acute Fire Technology Instructor for g Fwd Diagnoses Pneumonia J18.9 Laterality: right Lung location: lower lobe of lung Pneumonia type: due to unspecified organism NSTEMI (non-ST elevated myocardial infarction) I21.4 CAD (coronary artery disease) I25.10 ESRD (end stage renal disease) N18.6 Peripheral Vascular Disease I73.9
--- NOTE | 2022-05-14 16:24 | P.PN_ITS ---
Subjective Subjective: Patient was seen and morning, he is getting dialysis, he is feeling a lot better, yesterday afternoon he had hypotensive episodes precluding dialysis, moved out of ICU for close monitoring this morning he is normotensive receiving dialysis feeling a lot better, no chest pain, no palpitations, no s hortness of breath, no lightheadedness, dizziness Vitals/I&O/Wt Last Vital Signs Temp 97.8 F 05/14/22 12:00 Pulse 74 05/14/22 14:00 Resp 16 05/14/22 12:00 BP 108/75 05/14/22 12:00 Pulse Ox 100 05/14/22 12:00 O2 Del Method 05/14/22 12:00 O2 Flow Rate 2 05/14/22 12:00 05/14/22 05/14/22 05/14/22 06:59 14:59 22:59 Intake Total 1090 / 1090 Output Total 2500 / 2500 Balance -1410 / -1410 Physical Exam Const: COMMON NORMALS: no acute distress and patient oriented x3 Resp: COMMON NORMALS: normal respiratory effort, No retractions, No use of accessory muscles and clear to auscultation bilaterally AUSCULTATION: clear to auscultation bilaterally Cardio: COMMON NORMALS: regular rate, regular rhythm, S1 normal heart sound present and S2 normal heart sound present RATE: regular rate RHYTHM: regular rhythm HEART SOUNDS: S1 normal heart sound present and S2 normal heart sound present GI: COMMON NORMALS: Normal to inspection, nondistended, normoactive bowel sounds present and non-tender Extremity: NARRATIVE EXTREMITY EXAM: Left stump site, looks clean and dry, rashel in place Neuro: COMMON NORMALS: patient oriented x3 Psych: COMMON NORMALS: mental status grossly normal Data : 05/14/22 04:10 05/14/22 04:10 Micro: Microbiology 05/12/22 17:35 Blood Culture - Preliminary Blood NEGATIVE TO DATE 05/12/22 17:42 Blood Culture - Preliminary Blood NEGATIVE TO DATE A&P Assessment and plan (1) Pneumonia: Qualifiers: Laterality: right Lung location: lower lobe of lung Pneumonia type: due to unspecified organism Qualified Code(s): J18.9 - Pneumonia, unspecified organism (2) End stage chronic kidney disease: (3) Hypoxia: (4) CAD (coronary artery disease): (5) ESRD (end stage renal disease): (6) Peripheral Vascular Disease: (7) HCAP (healthcare-associated pneumonia): (8) NSTEMI (non-ST elevated myocardial infarction): Plan health care associated [facility] -Chest x-ray shows atelectasis and infiltrate in the right lung base -Patient's inflammatory markers continue to increase, CRP 3 of 6.2, Pro-Dieudonne 12.57, WBC down to 11.1 -Afebrile, on 2 L, overall clinically proving - CT of the chest, 1. Patchy right lower lobe pneumonic infiltrate. 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 1. 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 Subtotal occlusion of nondominant small sized RCA ? 2. with collateral blood flow.. ? 3. Severe mid LAD stenosis s/p balloon angioplasty.? Stent could not be advanced.? Heavily calcified vessel. It will need arthrectomy if revascularization is planned. It will be high risk procedure and will need LV support device and high risk of complications.? Other option will be to pursue medical therapy. Options will be discussed with patient and family.. ? 4. Mid Left Anterior Descending was treated with a Balloon. ?-Patient potentially needs arthrectomy, Pt opted for medical management -Baseline troponin 150, 6-hour 167.9, delta 17.9, BNP over 70,000 -EKG showing new left bundle branch block -Cardiac echocardiogram -?1. Dilated left ventricle. Severely decreased left ventricular ?systolic function. Left ventricular ejection fraction is ?estimated at 25 %. There is severe global hypokinesis more so in ?apical hernandez. ?2. When compared to previous study dated 04/16/2022, there has ?been no significant change. Plan -Discussed with cardiology, plan on medical management -aspirin, plavix -Patient refused heparin drip throughout his hospitalization, will continue to this evening, then switch to subcu heparin -Can consider beta-theodore however patient blood pressures remain soft -TSH, mag, Continue to monitor End-stage renal disease, on hemodialysis Hyponatremia, receiving dialysis PT OT today, plan on discharge in the next 24 hours Attestations Medical Necessity Statement*: Patient requires hospitalization for healthcare associated pneumonia Coding Level of Care Code Acute Crimp Setter for [facility] Fwd Diagnoses Pneumonia J18.9 Laterality: right Lung location: lower lobe of lung Pneumonia type: due to unspecified organism End stage chronic kidney disease N18.6 Hypoxia R09.02 CAD (coronary artery disease) I25.10 ESRD (end stage renal disease) N18.6 Peripheral Vascular Disease I73.9 HCAP (healthcare-associated pneumonia) J18.9 NSTEMI (non-ST elevated myocardial infarction) I21.4
[2022-05-14] MEDS: heparin 5,000 unit/mL INJ 1 mL 5000 UNIT SUBCUT (16:38)
[2022-05-14 17:03] LABS: Glucose Point of Care 133 mg/dL (70-110)
[2022-05-14 17:14] LABS: Partial Thromboplastin Time 59.9 SECONDS (23.9-36.7)
[2022-05-14 19:34] LABS: Iron 85 ug/dL (59-158); Percent Saturation 52.4 % (20-50); Thyroid Stimulating Hormone 5.46 uIU/mL (0.27-4.20); Total Iron Binding Capacity 162 mcg/dl; Transferrin 152 mg/dL (200-360); Unsaturated Iron Binding 77 ug/dL (112-347)
[2022-05-14] MEDS: aspirin 81 mg EC Tablet PO (20:00)
[2022-05-14] MEDS: clopidogrel 75 mg Tablet PO (20:00)
[2022-05-14 20:22] LABS: Glucose Point of Care 140 mg/dL (70-110)
[2022-05-15] VITALS (52 sets, daily range): BP systolic 90–116; BP diastolic 58–79; PULSE 68–80; RESP 14–35; TEMP 36.8; O2SAT 93–100
[2022-05-15] MEDS: midodrine 5 mg TABLET 10 MG PO ×2 (02:51→07:58)
[2022-05-15 03:14] LABS: Basophils # 0.1 10^3/uL (0.0-0.1); Basophils % 1.3 %; Eosinophils # 0.3 10^3/uL (0.0-0.8); Eosinophils % 3.9 %; Hematocrit 38.3 % (42.0-52.0); Hemoglobin 11.6 g/dL (11.7-16.6); Lymphocytes # 1.3 10^3/uL (0.8-4.8); Lymphocytes % 15.6 %; Mean Corpuscular HGB Conc 30.3 g/dL (30.0-36.0); Mean Corpuscular Hemoglobin 31.4 pg (28.0-34.0); Mean Corpuscular Volume 103.5 fl (80-94); Mean Platelet Volume 10.1 fL (7.4-10.4); Neutrophils # 5.61 10^3/uL (1.8-7.7); Neutrophils % 66.7 %; Nucleated Red Blood Cells % 0.2 %; Platelet Count 155 10^3/cmm (130-400); Red Cell Distribution Width 16.7 % (12.1-15.1); White Blood Count 8.4 10^3/uL (4.0-10.0)
[2022-05-15 03:45] LABS: Alanine Aminotransferase 6 U/L (0-41); Albumin Level 2.9 g/dL (3.5-5.2); Alkaline Phosphatase 81 U/L (40-130); Anion Gap 14.1 (5-19); Aspartate Amino Transferase 17 U/L (0-40); Blood Urea Nitrogen 30 mg/dL (6-20); Calcium 9.4 mg/dL (8.5-10.5); Carbon Dioxide 33 mmol/L (22-29); Chloride 86 mmol/L (98-107); Globulin 4.5 g/dL (1.3-4.6); Glomerular Filtration Rate 12.6 mL/min (90-130); Glucose 101 mg/dL (65-115); Magnesium 2.2 mg/dL (1.7-2.3); Osmolality Calculated 272 mOsm/kg (285-295); Phosphorus 4.1 mg/dL (2.5-4.5); Potassium 5.1 mmol/L (3.5-5.1); Sodium 128 mmol/L (136-145); Total Bilirubin 1.7 mg/dL (0.15-1.2); Total Protein 7.4 g/dL (6.6-8.7)
[2022-05-15 03:48] LABS: Procalcitonin 9.66 ng/mL (0-0.5)
[2022-05-15] MEDS: heparin 5,000 unit/mL INJ 1 mL 5000 UNIT SUBCUT (04:01)
[2022-05-15 04:34] LABS: LAB Peripheral Smear Sent for Review
[2022-05-15 07:19] LABS: Glucose Point of Care 112 mg/dL (70-110)
[2022-05-15] MEDS: linezolid premix 600 MG/300 ML PREMIX 300 MG IV (07:55)
[2022-05-15] MEDS: meropenem 1,000 MG in sodium chloride 0.9% (plus) 50 ML 100 MG IV (07:56)
[2022-05-15] MEDS: NON-FORMULARY MEDICATION (Sucroferric Oxyhydroxide [Velphoro] 500 mg tablet,chewable) 500 EACH PO (07:59)
[2022-05-15] MEDS: polyethylene glycol 3350 Pkt 17 gm PO (08:01)
--- NOTE | 2022-05-15 08:38 | P.PN_ITS ---
Subjective Subjective: feels better. remains w/ orthopnea, sob. leg pain and edema. has b/l leg amputations. Medications: Reviewed: Yes Medication Review Details: Current Medications Acetaminophen (Acetaminophen 500 Mg Tablet) 500 mg PO Q4H PRN PRN Reason: fever Albuterol/Ipratropium (Ipratropium-Albuterol 3 Ml Neb) 3 ml INHALATION Q6H PRN PRN Reason: SHORTNESS OF BREATH Albuterol/Ipratropium (Ipratropium-Albuterol 3 Ml Neb) 3 ml INHALATION QID.RESPIRATORY CHANEL Last Admin: 05/15/22 08:16 Dose: Not Given Aspirin (Aspirin 81 Mg Ec Tablet) 81 mg PO BEDTIME CHANEL Last Admin: 05/14/22 20:00 Dose: 81 mg Clopidogrel Bisulfate (Clopidogrel 75 Mg Tablet) 75 mg PO BEDTIME CHANEL Last Admin: 05/14/22 20:00 Dose: 75 mg Dextrose (Dextrose 50% Syringe 50 Ml) 25 ml IVP ONCE PRN; Protocol PRN Reason: hypoglycemia protocol Dextrose (Dextrose 50% Syringe 50 Ml) 50 ml IVP PRN PRN; Protocol PRN Reason: hypoglycemia protocol Glucagon (Glucagon 1 Mg/Ml Inj 1 Ml) 1 mg IM ONCE PRN; Protocol PRN Reason: Adult Acute Hypoglycemia Prot. Heparin Sodium (Porcine) (Heparin 5,000 Unit/Ml Inj 1 Ml) 5,000 unit SUBCUT Q12H COUNTS INCLUDE 234 BEDS AT THE [facility] Last Admin: 05/15/22 04:01 Dose: 5,000 unit Dextrose (D5w) 500 mls @ 100 mls/hr IV ONCE PRN; Protocol PRN Reason: Adult Acute Hypoglycemia Prot Linezolid (Zyvox Premix) 600 mg in 300 mls @ 300 mls/hr IV Q12H CHANEL; Protocol Last Admin: 05/15/22 07:55 Dose: 300 mls/hr Meropenem 1,000 mg/ Sodium (Chloride) 50 mls @ 100 mls/hr IV Q12H COUNTS INCLUDE 234 BEDS AT THE [facility] Last Admin: 05/15/22 07:56 Dose: 100 mls/hr Norepinephrine Bitartrate 4 mg (/ Dextrose) 254 mls @ 0 mls/hr IV .Q0M CHANEL; Protocol Midodrine (Midodrine 5 Mg Tablet) 10 mg PO Q6H COUNTS INCLUDE 234 BEDS AT THE [facility] Last Admin: 05/15/22 07:58 Dose: 10 mg Non-Formulary Medication (Sucroferric Oxyhydroxide [Velphoro]) 500 mg PO TIDWM COUNTS INCLUDE 234 BEDS AT THE [facility] Last Admin: 05/15/22 07:59 Dose: 500 mg Non-Formulary Medication (Vitamin E (Dl, Acetate)) 400 unit PO BEDTIME COUNTS INCLUDE 234 BEDS AT THE [facility] Last Admin: 05/14/22 19:57 Dose: Not Given Ondansetron HCl (Ondansetron 2 Mg/Ml Sdv 2 Ml) 4 mg IVP Q6H PRN PRN Reason: NAUSEA AND VOMITING Polyethylene Glycol (Polyethylene Glycol 3350 Pkt 17 Gm) 17 gm PO DAILY COUNTS INCLUDE 234 BEDS AT THE [facility] Last Admin: 05/15/22 08:01 Dose: 17 gm Senna/Docusate Sodium (Sennosides-Docusate Tablet) 1 tab PO DAILY COUNTS INCLUDE 234 BEDS AT THE [facility] Last Admin: 05/15/22 07:37 Dose: Not Given Vitals/I&O/Wt Last Vital Signs Temp 98.3 F 05/15/22 04:00 Pulse 77 05/15/22 08:17 Resp 18 05/15/22 08:17 BP 107/67 05/15/22 06:00 Pulse Ox 98 05/15/22 08:17 O2 Del Method 05/15/22 08:17 O2 Flow Rate 2 05/15/22 08:17 05/14/22 05/15/22 05/15/22 22:59 06:59 14:59 Intake Total 976.85 / 2066.85 240 / 2306.85 Output Total 0 / 2500 Balance 976.85 / -433.15 240 / -193.15 Physical Exam Narrative: obese man, sitting up, NARD vs noted heent- nc/at, eomi, anicteric neck obese, no jvp lungs clear heart reg abd soft, nt, nd, +bs ext LUE AVF w/ thrill and bruit legs RLE BKA, LLE AKA- both legs w/ edema and left w/ drainage neuro- a, a, o x 3 Data : 05/15/22 02:49 05/15/22 02:49 A&P Assessment and plan (1) End stage chronic kidney disease: Plan 1. ESRD: On hemodialysis per,? TTS schedule as outpatient, last HD was yesterday.? -plan repeat HD tomorrow 2.? Hyperkalemia: HD and low K diet 3.? ACS: NSTEMI- Elevated troponin, cardiology appreciated, patient has echo with severely decreased LV function unchanged when compared to previous study -on ASA, plavix; will consider adding beta theodore based on BP -Not a candidate for any interventions here. Does not want to go through high risk atherectomy with?Impella support. 4.? Peripheral vascular disease - s/p RT BKA and Left AKA 5.? PNA on meropenem and zyvox per medicine 6. hgb good for ESRD -high ferritin- he may have received miv iron w/ dialysis- no more iron -stop iron based binders 7. hyponatremia from ESRD, CHF, and pna- monitor w/ dialysis Patient seen and examined w/ RN- telehealth visit. ? Time spent 30 +minutes Attestations Medical Necessity Statement*: NSTEMI, ESRD -per medicine Time Spent in Patient Care: 16 - 35 minutes (>than 50% of time spent in counselling and/or direct pt care on unit) . 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
--- NOTE | 2022-05-15 09:21 | PC.SOCIAL ---
Imm update Imm updated with patient at bedside. Copy of page 2 provided. Patient verbalized understanding. Copy in chart initialed, dated and timed.
[2022-05-15 10:53] LABS: Glucose Point of Care 163 mg/dL (70-110)
--- NOTE | 2022-05-15 11:47 | P.DS_ITS ---
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, balloon angioplasty of LAD, presented to the hospital for worsening of shortness of breath weakness, fatigue, new oxygen requirement at the time of ED work-up, 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 Patient will be discharged back to his [facility] living. For his intermittent h ypotensive episodes he does require high-dose midodrine which is not ideal considering underlying coronary artery disease. He will get his dialysis Sunday and Sunday. He is full code, Physical Exam Narrative: Patient is awake and alert Nonfocal neuro exam Stump does not look infected Mild signs of fluid overload Currently doing well on 2 L of nasal cannula however on room air he did well as well saturating 93% Abdomen soft Stump does not look infected Discharge Data Studies Completed and Pending Completed Studies During Hospitalization Category Date Time Status CT chest wo con 66094 Stat Cat Scan 05/12/22 18:05 Completed XR chest 1V portable [id number] Stat Exams 05/12/22 11:25 Completed CV. echo limited [id number] Routine Ultrasound 05/12/22 18:56 Completed Pending at discharge Category Date Time Status Bacterial Antigen Routine Lab 05/12/22 19:15 Uncollected Blood Culture Stat Lab 05/12/22 17:35 Results C Reactive Protein AM LABS Lab 05/16/22 04:00 Ordered Complete Blood Count w/Auto AM LABS Lab 05/16/22 04:00 Ordered Comprehensive Metabolic Panel AM LABS Lab 05/16/22 04:00 Ordered Coronavirus PCR Stat Lab 05/12/22 Ordered MRSA by PCR Stat Lab 05/12/22 Ordered Magnesium AM LABS Lab 05/16/22 04:00 Ordered Phosphorus AM LABS Lab 05/16/22 04:00 Ordered Procalcitonin AM LABS Lab 05/16/22 04:00 Ordered SARS Covid-2 Antigen Routine Lab 05/15/22 10:55 Received Sputum Culture and Gram Stain Stat Lab 05/12/22 16:36 Ordered Radiology Impressions Chest X-Ray 05/12/22 11:25 IMPRESSION: 1. Small infiltrate and atelectasis in the right lower lobe. Developing pneumonia is not excluded. There is also a 1 cm calcified granuloma in this region. 2. Mild cardiac enlargement. Chest CT 05/12/22 18:05 IMPRESSION: 1. Patchy right lower lobe pneumonic infiltrate. 2. Abdominal ascites. 3. Calcified biliary sludge and cholelithiasis. 4. Omentum appears somewhat edematous, perhaps related to ascites, omental caking as with metastatic disease may also be a consideration for this appearance depending on the clinical scenario. 5. Chronic appearing renal atrophy bilaterally. 6. Cardiomegaly. 7. Coronary artery atherosclerotic calcifications. 8. Moderate right pleural effusion. 9. Scattered prominent mediastinal lymph nodes measuring up to 10 mm, nonspecific. Laboratory Results WBC 8.4 10^3/uL (4.0-10.0) 05/15/22 02:49 RBC 3.70 10^6/uL (4.1-5.3) L 05/15/22 02:49 Hgb 11.6 g/dL (11.7-16.6) L 05/15/22 02:49 Hct 38.3 % (42.0-52.0) L 05/15/22 02:49 MCV 103.5 fl (80-94) H 05/15/22 02:49 MCH 31.4 pg (28.0-34.0) 05/15/22 02:49 MCHC 30.3 g/dL (30.0-36.0) 05/15/22 02:49 RDW 16.7 % (12.1-15.1) H 05/15/22 02:49 Plt Count 155 10^3/cmm (130-400) 05/15/22 02:49 MPV 10.1 fL (7.4-10.4) 05/15/22 02:49 Neut % (Auto) 66.7 % 05/15/22 02:49 Lymph % (Auto) 15.6 % 05/15/22 02:49 [place] % (Auto) 12.0 % 05/15/22 02:49 Eos % (Auto) 3.9 % 05/15/22 02:49 Baso % (Auto) 1.3 % 05/15/22 02:49 Neut # (Auto) 5.61 10^3/uL (1.8-7.7) 05/15/22 02:49 Lymph # (Auto) 1.3 10^3/uL (0.8-4.8) 05/15/22 02:49 [place] # (Auto) 1.0 10^3/uL (0.2-0.9) H 05/15/22 02:49 Eos # (Auto) 0.3 10^3/uL (0.0-0.8) 05/15/22 02:49 Baso # (Auto) 0.1 10^3/uL (0.0-0.1) 05/15/22 02:49 Nucleated RBC % (auto) 0.2 % 05/15/22 02:49 Nucleated RBCs # 0.0 /100WBC 05/15/22 02:49 PT 18.70 SECONDS (12.1-14.9) H 05/14/22 04:10 INR 1.53 (0.8-1.2) H 05/14/22 04:10 APTT 59.9 SECONDS (23.9-36.7) H 05/14/22 16:29 Sodium 128 mmol/L (136-145) L 05/15/22 02:49 Potassium 5.1 mmol/L (3.5-5.1) 05/15/22 02:49 Chloride 86 mmol/L (98-107) L 05/15/22 02:49 Carbon Dioxide 33 mmol/L (22-29) H 05/15/22 02:49 Anion Gap 14.1 (5-19) 05/15/22 02:49 BUN 30 mg/dL (6-20) H 05/15/22 02:49 Creatinine 5.0 mg/dL (0.7-1.2) H 05/15/22 02:49 GFR Calculation 12.6 mL/min (90-130) L 05/15/22 02:49 Glucose 101 mg/dL (65-115) 05/15/22 02:49 POC Glucose 163 mg/dL (70-110) H 05/15/22 10:43 Estimat Average Glucose 88 05/12/22 12:56 Hemoglobin A1c 4.7 % (4.0-6.0) 05/12/22 12:56 Calculated Osmolality 272 mOsm/kg (285-295) L 05/15/22 02:49 Lactate 2.6 mmol/L (0.5-2.2) H 05/14/22 04:10 Calcium 9.4 mg/dL (8.5-10.5) 05/15/22 02:49 Phosphorus 4.1 mg/dL (2.5-4.5) 05/15/22 02:49 Magnesium 2.2 mg/dL (1.7-2.3) 05/15/22 02:49 Iron 85 ug/dL (59-158) 05/14/22 18:16 Iron Cancelled 05/14/22 18:16 TIBC 162 mcg/dl 05/14/22 18:16 % Saturation 52.4 % (20-50) H 05/14/22 18:16 Unsat Iron Binding 77 ug/dL (112-347) L 05/14/22 18:16 Transferrin 152 mg/dL (200-360) L 05/14/22 18:16 Ferritin 2938 ng/mL (30-400) H 05/14/22 04:10 Total Bilirubin 1.7 mg/dL (0.15-1.2) H 05/15/22 02:49 AST 17 U/L (0-40) 05/15/22 02:49 ALT 6 U/L (0-41) 05/15/22 02:49 Alkaline Phosphatase 81 U/L (40-130) 05/15/22 02:49 Troponin T Baseline 150 ng/L (0-15) H* 05/12/22 12:56 Troponin T Hi Sens 6Hr 167.9 ng/L (0-15) H 05/12/22 19:25 Troponin T Hi Sens 6Hr Delta 17.9 ng/L (0-12) H* 05/12/22 19:25 C-Reactive Protein 229.0 mg/L (0.0-4.9) H 05/15/22 02:49 NT-Pro-B Natriuret Pep > 62182 pg/mL (0-125) H 05/14/22 04:10 Total Protein 7.4 g/dL (6.6-8.7) 05/15/22 02:49 Albumin 2.9 g/dL (3.5-5.2) L 05/15/22 02:49 Globulin 4.5 g/dL (1.3-4.6) 05/15/22 02:49 Procalcitonin 9.66 ng/mL (0-0.5) H 05/15/22 02:49 TSH 5.46 uIU/mL (0.27-4.20) H 05/14/22 18:16 Vitals Last Vital Signs Temp 98.3 F 05/15/22 08:30 Pulse 79 05/15/22 08:45 Resp 15 05/15/22 08:45 BP 106/68 05/15/22 08:45 Pulse Ox 95 05/15/22 08:45 O2 Del Method 05/15/22 08:30 O2 Flow Rate 2 05/15/22 08:17 Discharge Plan Discharge Patient Disposition: Xfer SNF Condition: Stable Prescriptions: New cefpodoxime 200 mg tablet 200 mg PO BID Qty: 10 0RF Rx Instructions: must administer with a meal/food doxycycline hyclate 100 mg tablet 100 mg PO BID 5 Days Qty: 10 0RF albuterol sulfate 90 mcg/actuation HFA aerosol inhaler 2 inh inhalation Q8H PRN (Reason: shortness of breath or wheezing) Qty: 8.5 0RF Continued nitroglycerin [Nitrostat] 0.4 mg tablet, sublingual 0.4 mg SUBLINGUAL Q5M PRN (Reason: chest pain) Qty: 25 1RF Rx Instructions: do not exceed 3 doses per episode aspirin [Adult Low Dose Aspirin] 81 mg tablet,delayed release (DR/EC) 81 mg PO BEDTIME vitamin E (dl, acetate) 400 unit capsule 400 unit PO BEDTIME midodrine 10 mg tablet 10 mg PO TID Qty: 270 3RF Rx Instructions: do not give last dose of day after 6PM or within 4 hrs of bedtime Velphoro 500 mg tablet,chewable 500 mg PO TIDWM ondansetron 4 mg Tablet,Disintegrating 4 mg PO Q6H PRN (Reason: Nausea And Vomiting) clopidogrel 75 mg tablet 75 mg PO BEDTIME polyethylene glycol 3350 [Miralax] 17 gram Powder In Packet 17 g PO DAILY acetaminophen 325 mg Tablet 650 mg PO Q6H PRN (Reason: Mild Pain) Qty: 100 0RF Discharge Orders: Discharge Order (Routine); Ordered 05/15/22 Ordered By: Jhon Conley Referrals: Julius Aguila DO [Primary Care Provider] - Discharge Diet: Usual diet Patient Instructions: Doxycycline (By mouth), Albuterol (By breathing), Cefpodoxime Proxetil (By mouth), Heart Attack (DC), Community Acquired Pneumonia (DC) Discharge Attestations Time Spent in Discharge Care*: less than 30 min Status at Discharge: Cognitive status at discharge: cognitively intact , Behavioral status at discharge: cooperative , Quality Metrics Clinical Quality Measures [ No reported AMI, CVA or VTE this stay] Coding Level of Care Code Acute Chg FW DC note Diagnoses End stage chronic kidney disease N18.6
[2022-05-15 11:49] LABS: SARS Covid-2 Antigen negative (Negative)
--- NOTE | 2022-05-15 12:22 | PC.CHAP ---
Pastoral Care Encounter/Spiritual Assessment Type of Contact [] Declined operations boardman visit [] Patient/Family/Request visit [] Outpatient visit [] Follow-up visit [] Physician referral [] Code/Alert [x] Routine visit [] Staff referral [] Actively dying [] Patient sleeping [] Family support [] [] Out of room [] Palliative care [] [x] Receiving care in room [] Pre-surgical visit [] Trauma [] Long length of stay []x ICU visit [] Other: Relational/Emotional Strength [] Patient feels connected with others/family/visitors/staff [] Distress [] Loneliness/isolation [] Abandonment Spirituality of Patient [] Person of Mabel [] Attends Restorationism of their Mabel [] Believes in Prayer [] Reads Bible or Cheondoism materials [] There are Spiritual issues to be addressed Micro Paleontologist Interventions [] Prayer [] Active listening [] Non-anxious presence [] Spiritual/emotional support [] Crisis/trauma care [] Spiritual counseling [] Bereavement support [] Provided bereavement packet [] Provided Bible/devotional materials [] Provided toy/stuffed animal, coloring book to patient or family member [] Provided Communion [] Anointing/[place] [] Salvation [] Completed spiritual assessment [] Other: Impact on Illness or Injury [] Angry [] Fearful [] Anxious [] Often cries [] Exhaustion [] Unable to work [] Unable to attend hoahaoism [] Unable to walk/stand [] Unable to read [] Unable to drive [] Unable to eat/drink [] Unable to sleep [] Unable to be with family [] Patient intubated [] Other: Summary Time spent with patient
--- NOTE | 2022-05-15 12:41 | PC.NURSE ---
REceived discharge orders. Ride arranged with ready transport. Ivs removed. discharge assessment completed. Report called to terrance at [facility], [place] and report sheet faxed. 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
== END 2022-05-15 13:51 | disposition skilled nursing facility (03) | DRG 280 ==
LOC: ER 16:39 → MEDSURG 18:56 → ICU 05-13 16:22
PROVIDERS: Internal Medicine; Admitting Provider Family Medicine; Emergency Provider Physician Assistant; PCP Internal Medicine; Visit Provider Family Medicine
DX: I21.4 Non-ST elevation (NSTEMI) myocardial infarction (principal); J18.9 Pneumonia, unspecified organism; N18.6 End stage renal disease; I12.0 Hypertensive chronic kidney disease with stage 5 chronic kidney disease or end stage renal disease; Y95 Nosocomial condition; E11.22 Type 2 diabetes mellitus with diabetic chronic kidney disease; Z99.2 Dependence on renal dialysis; I25.10 Atherosclerotic heart disease of native coronary artery without angina pectoris; Z98.61 Coronary angioplasty status; E11.51 Type 2 diabetes mellitus with diabetic peripheral angiopathy without gangrene; E11.42 Type 2 diabetes mellitus with diabetic polyneuropathy; Z89.512 Acquired absence of left leg below knee; Z89.511 Acquired absence of right leg below knee; I25.2 Old myocardial infarction; F17.210 Nicotine dependence, cigarettes, uncomplicated; E87.5 Hyperkalemia; Z88.1 Allergy status to other antibiotic agents; Z88.0 Allergy status to penicillin; E83.119 Hemochromatosis, unspecified; I95.9 Hypotension, unspecified; Z79.82 Long term (current) use of aspirin; Z79.02 Long term (current) use of antithrombotics/antiplatelets
CPT/HCPCS: 12345; 36415; 36416; 71045; 71250; 80048; 80053; 82728; 82962; 83036; 83540; 83550; 83605; 83735; 83880; 84100; 84145; 84443; 84466; 84484; 85025; 85610; 85730; 86140; 87040; 87426; 90935; 93005; 93308; 94640; 94664; 96365; 96367; 96372; 97161; 97165; 97530; 99212; 99285; J1644; J2020; J2185; J3490; J7050; Q3014

== ENCOUNTER → 2022-05-24 08:49 | Outpatient (BNVA) | payer OTHER, MEDICARE, SELFPAY | PROVIDERS: PCP Internal Medicine; Visit Provider Thoracic Surgery (Cardiothoracic Vascular Surgery) | DX: Z09 Encounter for follow-up examination after completed treatment for conditions other than malignant neoplasm (principal) | CPT/HCPCS: 99212 ==

== ENCOUNTER → 2022-08-14 15:38 | Outpatient (BNVA) | payer MEDICARE, OTHER, SELFPAY | PROVIDERS: PCP Internal Medicine; Visit Provider Internal Medicine | DX: I25.10 Atherosclerotic heart disease of native coronary artery without angina pectoris (principal); I73.9 Peripheral vascular disease, unspecified; I25.2 Old myocardial infarction; I95.0 Idiopathic hypotension; F17.210 Nicotine dependence, cigarettes, uncomplicated | CPT/HCPCS: 99214 ==